=== PATIENT | male | born 1930 | race Caucasian/White ===

== ENCOUNTER 2017-11-28 10:49 | Observation (INO) ==
[2017-11-28] MEDS ORDERED: 0.9 % Sodium Chloride 1,000 ML IVC ONE (11:03)
[2017-11-28] MEDS ORDERED: Ondansetron 4 MG/2 ML VIAL IVP STA (11:05)
[2017-11-28 11:48] LABS: Basophils % 0.6 %; Eosinophils % 0.3 %; Hematocrit 34.5 % (37.5-50.1); Hemoglobin 11.2 g/dL (12.9-16.9); Immature Granulocytes % 0.3 % (0-4); Lymphocytes # 0.7 K/mcL (0.6-4.6); Lymphocytes % 20.3 %; Mean Corpuscular HGB Conc 32.5 g/dL (31.6-35.5); Mean Corpuscular Hemoglobin 28.5 pg (28.0-33.3); Mean Corpuscular Volume 87.8 fL (83.0-100.0); Mean Platelet Volume 9.6 fL (9.4-12.4); Monocytes # 0.5 K/mcL (0.0-1.3); Monocytes % 15.2 %; Neutrophils # 2.1 K/mcL (1.6-8.9); Platelet Count 235 K/mcL (140-400); Red Blood Count 3.93 M/mcL (4.19-5.50); Red Cell Distribution Width 12.8 % (11.5-14.5); Segmented Neutrophils % 63.3 %
--- NOTE | 2017-11-28 11:49 | Emergency Department Note ---
Disposition Clinical Impression: Weakness, Acute electrocardiogram changes Fatigue Qualifiers: Fatigue type: unspecified Qualified Code(s): R53.83 - Other fatigue Disposition: Admitted As Inpatient Condition: Good General Adult HPI - General Chief complaint: ED Upper Respiratory Infection Stated complaint: Positive flu, not feeling good Time Seen by Provider: 11/28/17 11:01 Source: patient Limitations: no limitations Nursing Notes Reviewed: Yes Vital Signs Reviewed: Yes - History of Present Illness HPI Narrative: Patient presents today for generalized weakness and fatigue. Patient states he "just does not feel right". Patient was diagnosed with influenza 2 weeks ago. Patient has been placed on azithromycin and Levaquin for presumed possible URI type symptoms. Patient has not had runny nose or sore throat. Patient does have a cough. Nonproductive in nature. Feels congested in his chest. The patient does not have chest pain. No abdominal pain. Feels nauseated so he has not been eating or drinking. Has began to have some increased swelling in the lower extremities. No difficulty with urination. Continues to urinate without problem. Describes night sweats but no specific fever. Pain Scale: 0 - Related Data Home Medications Medication Instructions Recorded Confirmed Amlodipine Besylate 10 mg PO DAILY 11/28/17 11/28/17 Clopidogrel [Plavix] 75 mg PO DAILY 11/28/17 11/28/17 Finasteride [Proscar] 5 mg PO DAILY 11/28/17 11/28/17 Lisinopril [Zestril] 20 mg PO DAILY 11/28/17 11/28/17 Simvastatin [Zocor] 10 mg PO DAILY 11/28/17 11/28/17 levoFLOXacin [Levofloxacin] 500 mg PO DAILY 11/28/17 11/28/17 Allergies Allergy/AdvReac Type Severity Reaction Status Date / Time No Known Allergies Allergy Verified 11/28/17 10:55 Review of Systems: CONSTITUTIONAL: Chills weakness and fatigue No weight loss, fever, HEENT: Eyes: No visual changes. Ears, Nose, Throat: No hearing loss, difficulty talking or unable to swallow. SKIN: No rash or itching. CARDIOVASCULAR: No chest pain, chest pressure or chest discomfort. No palpitations or edema. RESPIRATORY: Cough without productive sputum GASTROINTESTINAL: No anorexia, nausea, vomiting or diarrhea. No abdominal pain or blood. GENITOURINARY: No burning on urination or hematuria. NEUROLOGICAL: No headache, dizziness, syncope, paralysis, ataxia, numbness or tingling in the extremities. No change in bowel or bladder control. MUSCULOSKELETAL: No muscle pain, back pain, joint pain or stiffness. Past Medical History - Past Medical History Medical history: Reports: hypertension Psychiatric history: Reports: no psych history - Social History Smoking Status: Never smoker Smokeless Tobacco Status: No Alcohol use: Reports: none Drug use: Reports: none Physical Exam General: Well appearing, nontoxic, no acute distress Head: Normocephalic Atraumatic Eyes: PERRL, EOMI ENT: Airway patent, no stridor Neck: supple, no meningismus Chest: Lungs clear to auscultation bilateral Cardiac: Regular rate and rhythm, no murmurs, rubs or gallops Abdomen: soft, nontender, nondistended; no guarding, rebound, or tenderness to percussion Musculoskeletal: +1 pitting edema through the lower extremities through the mid lower leg Calves symmetric, nontender, no palpable cord Skin: No rash, normal skin tone Neuro: Alert and Oriented to person, place, and time; No focal deficit, CN 2-12 symmetric and intact - General Limitations: no limitations General appearance: alert, in no apparent distress Course Vital Signs Temperature 97.8 F 11/28/17 10:51 Pulse Rate 83 11/28/17 10:51 Respiratory Rate 20 11/28/17 10:51 Blood Pressure 144/70 11/28/17 10:51 O2 Sat by Pulse Oximetry 96 11/28/17 10:51 Temperature 97.8 F 11/28/17 14:44 Pulse Rate 77 11/28/17 14:44 Respiratory Rate 18 11/28/17 14:44 Blood Pressure 150/73 11/28/17 14:44 O2 Sat by Pulse Oximetry 95 11/28/17 14:44 Oxygen Delivery Oxygen Delivery Room Air Medical Decision Making - Medical Records Medical records reviewed: Yes I reviewed the patient's medical records. - Lab Data Lab results reviewed: Yes I reviewed the patient's lab results. Result diagrams: 11/28/17 11:31 11/28/17 11:31 Lab Results 11/28/17 11/28/17 11/28/17 Range/Units 11:31 11:31 11:31 WBC 3.3 L (4.3-11.1) K/mcL RBC 3.93 L (4.19-5.50) M/mcL Hgb 11.2 L (12.9-16.9) g/dL Hct 34.5 L (37.5-50.1) % MCV 87.8 (83.0-100.0) fL MCH 28.5 (28.0-33.3) pg MCHC 32.5 (31.6-35.5) g/dL RDW 12.8 (11.5-14.5) % Plt Count 235 (140-400) K/mcL MPV 9.6 (9.4-12.4) fL Immature Gran % 0.3 (0-4) % Seg Neutrophils % 63.3 % Lymphocytes % 20.3 % Monocytes % 15.2 % Eosinophils % 0.3 % Basophils % 0.6 % Neutrophils # 2.1 (1.6-8.9) K/mcL Lymphocytes # 0.7 (0.6-4.6) K/mcL Monocytes # 0.5 (0.0-1.3) K/mcL Eosinophils # 0.0 (0.0-0.6) K/mcL Basophils # 0.0 (0.0-0.2) K/mcL Sodium 133 L (136-145) mEq/L Potassium 4.1 (3.5-5.1) mEq/L Chloride 100 (98-107) mEq/L Carbon Dioxide 26 (23-29) mEq/L BUN 17 (8-23) mg/dL Creatinine 1.20 (0.70-1.30) mg/dL Est GFR ( Amer) > 60 (> 60) Est GFR (Non-Af Amer) 57 L (> 60) BUN/Creatinine Ratio 14 (6-26) Glucose 120 H (70-105) mg/dL Calculated Osmolality 279 L (280-300) Calcium 10.2 (8.6-10.3) mg/dL Phosphorus 2.2 L (2.7-4.5) mg/dL Magnesium 2.0 (1.6-2.6) mg/dL Troponin I < 0.03 (< 0.04) ng/mL B-Natriuretic Peptide (Less than 100) pg/mL TSH (0.340-5.600) mcIU/mL Urine Color (Yellow) Urine Clarity (Clear) Urine pH (5.0-8.0) pH Units Ur Specific [place] (1.010-1.025) Urine Protein (Neg-Trace) mg/dL Urine Glucose (UA) (Normal) mg/dL Urine Ketones (Negative) mg/dL Urine Blood (Negative) Urine Nitrite (Negative) Urine Bilirubin (Negative) Urine Urobilinogen (Normal) mg/dL Ur Leukocyte Esterase (Negative) Urine Microscopic RBC (0-3) per hpf Urine Microscopic WBC (0-3) per hpf Ur Squamous Epith Cells (None-Few) per lpf Urine Bacteria (None-Few) per hpf Hyaline Casts (None-Few) per lpf 11/28/17 11/28/17 11/28/17 Range/Units 11:31 11:31 12:34 WBC (4.3-11.1) K/mcL RBC (4.19-5.50) M/mcL Hgb (12.9-16.9) g/dL Hct (37.5-50.1) % MCV (83.0-100.0) fL MCH (28.0-33.3) pg MCHC (31.6-35.5) g/dL RDW (11.5-14.5) % Plt Count (140-400) K/mcL MPV (9.4-12.4) fL Immature Gran % (0-4) % Seg Neutrophils % % Lymphocytes % % Monocytes % % Eosinophils % % Basophils % % Neutrophils # (1.6-8.9) K/mcL Lymphocytes # (0.6-4.6) K/mcL Monocytes # (0.0-1.3) K/mcL Eosinophils # (0.0-0.6) K/mcL Basophils # (0.0-0.2) K/mcL Sodium (136-145) mEq/L Potassium (3.5-5.1) mEq/L Chloride (98-107) mEq/L Carbon Dioxide (23-29) mEq/L BUN (8-23) mg/dL Creatinine (0.70-1.30) mg/dL Est GFR ( Amer) (> 60) Est GFR (Non-Af Amer) (> 60) BUN/Creatinine Ratio (6-26) Glucose (70-105) mg/dL Calculated Osmolality (280-300) Calcium (8.6-10.3) mg/dL Phosphorus (2.7-4.5) mg/dL Magnesium (1.6-2.6) mg/dL Troponin I (< 0.04) ng/mL B-Natriuretic Peptide 71 (Less than 100) pg/mL TSH 2.578 (0.340-5.600) mcIU/mL Urine Color Yellow (Yellow) Urine Clarity Turbid A (Clear) Urine pH 8.0 (5.0-8.0) pH Units Ur Specific [place] 1.016 (1.010-1.025) Urine Protein 100 H (Neg-Trace) mg/dL Urine Glucose (UA) Normal (Normal) mg/dL Urine Ketones Negative (Negative) mg/dL Urine Blood Negative (Negative) Urine Nitrite Negative (Negative) Urine Bilirubin Negative (Negative) Urine Urobilinogen Normal (Normal) mg/dL Ur Leukocyte Esterase Negative (Negative) Urine Microscopic RBC 0-3 (0-3) per hpf Urine Microscopic WBC 0-3 (0-3) per hpf Ur Squamous Epith Cells Moderate H (None-Few) per lpf Urine Bacteria None Seen (None-Few) per hpf Hyaline Casts None Seen (None-Few) per lpf - Radiology Data Radiology results reviewed: Yes I reviewed the patient's radiology results. - EKG Data EKG #1 EKG attestation: Yes I reviewed and interpreted this EKG. EKG results narrative: EKG shows sinus rhythm and rate of [address] depressions in the anterior leads. Change from previous of 08/06/11. Attestation Statement - Attestation Attestation: I examined this patient and my medical decision-making was reviewed with the Resident Physician. I agree with the documented findings, disposition and treatment plan as described.
[2017-11-28 11:56] LABS: BUN/Creatinine Ratio 14 (6-26); Blood Urea Nitrogen 17 mg/dL (8-23); Calcium 10.2 mg/dL (8.6-10.3); Carbon Dioxide 26 mEq/L (23-29); Chloride 100 mEq/L (98-107); Glucose 120 mg/dL (70-105); Osmolality,Calculated 279 (280-300); Phosphorous 2.2 mg/dL (2.7-4.5); Potassium 4.1 mEq/L (3.5-5.1); Sodium 133 mEq/L (136-145); eGFR For African Americans > 60 (> 60); eGFR For Non-African Americans 57 (> 60)
[2017-11-28 12:47] LABS: Bilirubin,Urine Negative (Negative); Blood,Urine Negative (Negative); Clarity,Urine Turbid (Clear); Color,Urine Yellow (Yellow); Glucose,Urine (UA) Normal (Normal); Ketones,Urine Negative (Negative); Leukocyte Esterase,Urine Negative (Negative); Nitrite,Urine Negative (Negative); Protein,Urine 100 mg/dL (Neg-Trace); Specific Gravity,Urine 1.016 (1.010-1.025); Urobilinogen,Urine Normal (Normal)
[2017-11-28 12:49] LABS: Bacteria,Urine None Seen per hpf (None-Few); Hyaline Casts,Urine None Seen per lpf (None-Few); RBC,Urine 0-3 per hpf (0-3); Squamous Epithelial Cell,Urine Moderate per lpf (None-Few); WBC,Urine 0-3 per hpf (0-3)
--- NOTE | 2017-11-28 13:59 | Internal Med History&Physical ---
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 Check TSH. Check orthostatics. We will get PT OT to see the patient. Weakness possibly from unresolved URI. Possibly viral bronchitis. The patient finished Tamiflu and Zithromax recently. I did explain this to the family that it might take time. (2) Acute electrocardiogram changes Current visit: Yes Status: Acute No chest pain. The patient has ST depression in leads V3, V4, V5 and V6. This was not present previously. Will trend cardiac enzymes. The patient has no chest pain. I would check an echocardiogram. Will ask cardiology to see and decide on a stress test. Will put on telemetry (3) HTN (hypertension) Current visit: Yes Status: Acute Resumed home antihypertensives Qualifiers: Hypertension type: essential hypertension Qualified Code(s): I10 - Essential (primary) hypertension (4) History of TIAs Current visit: Yes Status: Acute Continue Plavix and statin. (5) DVT prophylaxis Current visit: Yes Status: Acute Heparin subcutaneous Internal Medicine - H&P: HPI Chief complaint: weaknes Admitted From: Home Plans for Post Hospital Care: Home History of present illness: Mr. Leong is a 86 year old male with history of HTN , BPH, multiple TIAs who present with weakness and "not feeling right" for some time. In the ED work up was mostly unremarkable including a CXR. He had EKG changes with ST depression in anterior leads but no chest pain. Trops not elevated. Never had cardiac work up. Has had multiple urgent care and PCP visits for URI symptoms lately. Finished Tamiflu course and zithromax last week. Continues to feel weak. Hemodynamically stable in ED. Reported nausea to the ED but not to me. He still has a nagging dry cough. No fever/chills/nausea/vomiting/chest pain/ shortness of breath/abdominal pain/urinary symptoms/neurological symptoms. Past Med Surg Social Fam HX - Past Medical History Medical history: hypertension Psychiatric history: no psych history - Social History Smoking Status: Never smoker Smokeless Tobacco Status: No Alcohol use: none Drug use: none Internal Medicine - H&P: Meds Amlodipine Besylate 10 mg PO DAILY 11/28/17 [History] Clopidogrel [Plavix] 75 mg PO DAILY 11/28/17 [History] Finasteride [Proscar] 5 mg PO DAILY 11/28/17 [History] Lisinopril [Zestril] 20 mg PO DAILY 11/28/17 [History] Simvastatin [Zocor] 10 mg PO DAILY 11/28/17 [History] levoFLOXacin [Levofloxacin] 500 mg PO DAILY 11/28/17 [History] 3 Allergy/AdvReac Type Severity Reaction Status Date / Time No Known Allergies Allergy Verified 11/28/17 10:55 All Systems PM: A 10-system review of systems was performed and is negative for pertinent findings except as documented above in the HPI. Review of systems: All systems reviewed are negative except for what mentioned above - Constitutional Vitals: Temp Pulse Resp BP Pulse Ox 97.8 F 76 15 124/94 97 11/28/17 10:51 11/28/17 12:35 11/28/17 11:15 11/28/17 12:35 11/28/17 12:35 Exam: GEN: NAD HEENT: AT, NC, No cyanosis, oral mucosa is moist, No JVD Lymphatics: No lymphadenoapthy Eyes: Extrocular muscles intact, anicteric CVS:RRR. S1, S2, No m/r/g RESP: CTAB ABD: Soft, NT, ND, +BS EXT: No edema, No rashes, 2+ DP NEURO: was able to stand up and walk to his cane with no help but was unsteady. strenght is about 4/5 in both upper and lower extremities. CN II-XII intact, No sensory deficits Psych: Cooperative, Not anxious or depressed Internal Med - H&P Results - Labs CBC & Chem 7: 11/28/17 11:31 11/28/17 11:31 Labs: Short CBC 11/28/17 Range/Units 11:31 WBC 3.3 L (4.3-11.1) K/mcL Hgb 11.2 L (12.9-16.9) g/dL Hct 34.5 L (37.5-50.1) % Plt Count 235 (140-400) K/mcL Neutrophils # 2.1 (1.6-8.9) K/mcL BMP 11/28/17 11:31 Sodium 133 L Potassium 4.1 Chloride 100 Carbon Dioxide 26 BUN 17 Creatinine 1.20 Glucose 120 H Calcium 10.2 Cardiac Enzymes 11/28/17 Range/Units 11:31 Troponin I < 0.03 (< 0.04) ng/mL Urine 11/28/17 Range/Units 12:34 Urine Color Yellow (Yellow) Urine Clarity Turbid A (Clear) Urine pH 8.0 (5.0-8.0) pH Units Ur Specific [place] 1.016 (1.010-1.025) Urine Protein 100 H (Neg-Trace) mg/dL Urine Glucose (UA) Normal (Normal) mg/dL - Impressions ITS Impressions Chest X-Ray 11/28/17 11:04 IMPRESSION: No acute cardiopulmonary process. D/ / Dennis Anguiano MD / Dennis Anguiano MD Interpreting Provider: Dennis Anguiano MD
[2017-11-28] MEDS ORDERED: Acetaminophen 325 MG TABLET PO PRN (14:20)
[2017-11-28] MEDS ORDERED: Naloxone 0.4 MG/ML INJ IVP PRN (14:20)
[2017-11-28] MEDS: Finasteride 5 MG TABLET PO SCH (19:31)
[2017-11-28] MEDS: Lisinopril 20 MG TABLET PO SCH (19:31)
[2017-11-28] MEDS: amLODIPine 5 MG TABLET PO SCH (19:31)
[2017-11-28] MEDS: *HR* Heparin 5,000 UNIT/ML VIAL SQ SCH (22:00)
[2017-11-29] MEDS: *HR* Heparin 5,000 UNIT/ML VIAL SQ SCH (05:45)
--- NOTE | 2017-11-29 07:51 | Electrocardiograph Report ---
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
[2017-11-29 11:37] VITALS: BP 153/73
[2017-11-29] MEDS ORDERED: Benzonatate 100 MG CAPSULE PO SCH (12:00)
[2017-11-29] MEDS: amLODIPine 5 MG TABLET PO SCH (12:08)
[2017-11-29] MEDS: Lisinopril 20 MG TABLET PO SCH (12:09)
[2017-11-29] MEDS: Finasteride 5 MG TABLET PO SCH (12:09)
--- NOTE | 2017-11-29 13:18 | Discharge Summary ---
- NOTES TO OUTPATIENT PROVIDER Notes to Outpatient Provider: patient is not eating or drinking well according to , also coughing. He will be discharged with tessalon and should follow up with PCP next week. Encouraged drinking water and nutritional sullement. Also provided with a wheeled walker. Date of Encounter: 11/29/17 Time of Encounter: 13:16 - Discharge Diagnosis (1) Cough Priority: Secondary Status: Chronic Comments: We will provide a short course of Tessalon Perle to help control the cough. Explained to the patient and his that flu syndrome mild thickening involves a cough that lingers. He will complete his course of antibiotics. P was started on earlier in the week (2) Fatigue Priority: Primary Status: Acute Comments: Likely secondary to the recent flu in this elderly gentleman. Qualifiers: Fatigue type: unspecified Qualified Code(s): R53.83 - Other fatigue (3) HTN (hypertension) Priority: Primary Status: Chronic Comments: Vital signs stable continue home medications Qualifiers: Hypertension type: essential hypertension Qualified Code(s): I10 - Essential (primary) hypertension (4) Weakness Priority: Primary Status: Acute Comments: PT saw the patient and recommends a wheeled walker which has been prescribed and social service will see this a liver to the home. declined home health services or home physical therapy. Hospital course: Mr. Leong is a 86 year old male is a 86-year-old male with a history of hypertension, BPH, multiple TIAs and recent flu. He presented with weakness and not feeling right. His workup in the ER was mostly unremarkable including a chest x-ray. He had an EKG with some slight T-wave depression in anterior leads but no chest pain. Serial troponins were negative. He has had multiple urgent care and primary care visits for upper ureter respiratory infection symptoms recently since the flu. He did finish a course of Tamiflu and is continuing a course of azithromycin. Explained that he could have post viral syndrome and not feel well for several weeks. The cough is malingering and I did offer him to let us Tessalon Perle which helped and he will go home with a prescription of that. His vital signs and lab work are stable he has not been eating or drinking much per his spouse. I instructed him to set a water bottle by his TV table and sit better throughout the day as he does not like water. Also stated he had not feel like eating to drink a booster and an shore. He agreed that he would try that. He will also follow-up with his primary care physician next week physical therapy saw him and recommends a will jair which will be supplied. Discharge discussed with: patient, family, nurse, social work, case management - Time Spent with Patient Total time spent providing and/or coordinating discharge services: Less than 30 minutes - Discharge Medications Prescriptions: Benzonatate [Tessalon] 200 mg PO TID PRN 7 Days #21 capsule PRN Reason: Cough Home Medications: Amlodipine Besylate 10 mg PO DAILY 11/28/17 [History] Clopidogrel [Plavix] 75 mg PO DAILY 11/28/17 [History] Finasteride [Proscar] 5 mg PO DAILY 11/28/17 [History] Lisinopril [Zestril] 20 mg PO DAILY 11/28/17 [History] Simvastatin [Zocor] 10 mg PO DAILY 11/28/17 [History] levoFLOXacin [Levofloxacin] 500 mg PO DAILY 11/28/17 [History] Benzonatate [Tessalon] 200 mg PO TID PRN 7 Days #21 capsule 11/29/17 [Rx] Allergies/Adverse Reactions: 3 Allergy/AdvReac Type Severity Reaction Status Date / Time No Known Allergies Allergy Verified 11/28/17 10:55 Date of admission: 11/28/17 14:15 Primary care physician: Lincoln Meneses MD Consults: 11/28/17 14:18 Consult to Occupational Therapy [CONS] Routine Comment: Evaluate, develop and implement POC Reason for Consult: therapy/placement needs Consult to Physical Therapy [CONS] Routine Comment: Evaluate, develop and implement POC Reason for Consult: PT eval Discharging clinician: Edna Lenz Anticipated date of discharge: 11/29/17 - Constitutional Vitals: Temp Pulse Resp BP Pulse Ox 98.3 F 79 16 153/73 95 11/29/17 11:36 11/29/17 11:36 11/29/17 11:36 11/29/17 11:36 11/29/17 11:36 General appearance: Present: cooperative, A&O X 3, pleasant, no acute distress, answers questions appropriately - Head Head exam: Present: atraumatic, normocephalic - Eye Eye exam: Present: PERRL, conjuntiva pink, sclera anicteric Pupils: Present: PERRL - Neck Neck exam general surgery: Present: supple, trachea midline. Absent: lymphadenopathy - Respiratory Respiratory exam: Present: CTAB. Absent: accessory muscle use, rales, rhonchi, wheezes - Cardiovascular Cardiovascular exam: Present: RRR, +S1, +S2. Absent: diastolic murmur, gallop, rubs, systolic murmur - GI/Abdominal GI/Abdominal exam: Present: normal bowel sounds, soft, no peritoneal signs. Absent: distended, tenderness - Extremities Exam Extremities exam: Present: warm, radial pulses palpable and symmetrical. Absent : calf tenderness, cyanotic, pedal edema - Neurological Exam Neurological exam: Present: alert, CN II-XII intact, oriented X3, no focal deficits. Absent: pronater drift, facial droop, speech deficit Additional comments: Staffing gait, PT recommends will jair which has been arranged - Skin Skin exam: Present: dry, intact, normal color, warm - Patient Status Disposition: Home, Self-Care Condition: Good Functional capacity at discharge: uses cane/walker Overall status at discharge: patient is progressing back to baseline - Discharge Instructions Follow Up With: Lincoln Meneses MD [Primary Care Provider] - - Diet and Activity Activity: ambulate only with your walker, increase activity as tolerated Diet: advance to your usual diet (Instructed patient to try to increase his water intake to 3 small water bottles a day and did shore up to 3 or 4 times a day if he is not eating )
== END 2017-11-29 14:57 | disposition home or self-care (01) ==
LOC: 3BNU 10:49 → EMEROO 10:49 → 3BNU 14:24
PROVIDERS: ADMIT Internal Medicine; ATTEND Registered Nurse

== ENCOUNTER 2018-05-06 18:52 | Observation (INO) ==
--- NOTE | 2018-05-06 19:25 | Emergency Department Note ---
Disposition Clinical Impression: Hyponatremia, Vision changes, Weakness Afib Qualifiers: Atrial fibrillation type: unspecified Qualified Code(s): I48.91 - Unspecified atrial fibrillation Disposition: Admitted As Inpatient Condition: Good Time of Disposition: 22:44 General Adult HPI - General Chief complaint: ED Dizziness Stated complaint: "dizzy,weak"-hx of stroke Time Seen by Provider: 05/06/18 19:03 Nursing Notes Reviewed: Yes Vital Signs Reviewed: Yes - History of Present Illness HPI Narrative: Patient states that he "felt rotten when he woke up today." States yesterday woke up and felt dizzy. States that this is gone. Does use a walker to get around. No change in his feet. Family states just a slow decline over the past several years. Patient has no specific complaints currently other than generalized weakness. Pain Scale: 0 - Related Data Home Medications Medication Instructions Recorded Confirmed Amlodipine Besylate 10 mg PO DAILY 11/28/17 05/06/18 Clopidogrel [Plavix] 75 mg PO DAILY 11/28/17 05/06/18 Finasteride [Proscar] 5 mg PO DAILY 11/28/17 05/06/18 Lisinopril [Zestril] 20 mg PO DAILY 11/28/17 05/06/18 Simvastatin [Zocor] 10 mg PO DAILY 11/28/17 05/06/18 Aspirin [Lo-Dose Aspirin EC] 81 mg PO DAILY 02/18/18 05/06/18 Cholecalciferol (Vitamin D3) 2,000 unit PO DAILY 02/18/18 05/06/18 [Vitamin D] Ferrous Sulfate [Iron] 325 mg PO DAILY 02/18/18 05/06/18 Flaxseed Oil [[place]-3 Flaxseed Oil] 1,000 mg PO DAILY 02/18/18 05/06/18 Gabapentin [Neurontin] 400 mg PO BID 02/18/18 05/06/18 Multivitamin [Multivitamins] 1 each PO DAILY 02/18/18 05/06/18 Tamsulosin [Flomax] 0.4 mg PO DAILY 02/18/18 05/06/18 Allergies Allergy/AdvReac Type Severity Reaction Status Date / Time No Known Allergies Allergy Verified 05/06/18 21:26 All systems ED: reviewed and negative except as stated. Constitutional: Denies: fever, chills ENT ED: Denies: congestion Cardiovascular: Denies: chest pain, dyspnea on exertion, syncope Respiratory: Denies: cough, dyspnea Gastrointestinal: Denies: abdominal pain, nausea, vomiting, diarrhea, hematemesis Genitourinary: Denies: urgency, dysuria, frequency Musculoskeletal: Denies: back pain, neck pain Integumentary: Denies: rash, abrasion Neurological: Reports: weakness, other (Blurry vision. States when it is up close. No loss in vision.). Denies: headache Past Medical History - Past Medical History Attestation: Yes The following information was validated with the patient. Source: patient Medical history: Reports: cancer, CVA Psychiatric history: Reports: no psych history - Social History Smoking Status: Never smoker Smokeless Tobacco Status: No Alcohol use: Reports: none Drug use: Reports: none Physical Exam - General Limitations: no limitations General appearance: alert, in no apparent distress, other (Patient states that he is having a hard time figuring out which were does say. Family states that this is normal for the patient. This is not any acute onset in the past couple days.) - Head Head exam: atraumatic, normocephalic, normal inspection - Eye Eye exam: Present: normal appearance, PERRL, EOMI - ENT ENT exam: normal exam, normal oropharynx, mucous membranes moist - Neck Neck exam: Present: normal inspection, full ROM, trachea midline - Chest Chest inspection: Present: normal inspection, symmetric chest wall rise - Respiratory Respiratory exam: Present: normal lung sounds bilaterally. Absent: respiratory distress, accessory muscle use - Cardiovascular Cardiovascular exam: Present: irregular rhythm, normal heart sounds - Abdominal Exam Abdominal exam: Present: soft, Non-Tender. Absent: tenderness, distention, guarding, rebound, rigidity - Extremities Exam Extremities exam: Present: full ROM, normal capillary refill, other (Pitting edema to his knees bilaterally.). Absent: tenderness - Back Exam Back exam: Present: normal inspection, full ROM. Absent: tenderness - Neurological Exam Neurological exam: Present: alert, oriented X3, CN II-XII intact (No drift of any extremities. Equal strength in all 4 extremities. Patient does have a hard time getting out which word he wants to say however he is alert and oriented and can figure out the word it just takes them a couple extra minutes.) . Absent: motor sensory deficit - Psychiatric Psychiatric exam: Present: normal affect, normal mood - Skin Skin exam: Present: warm, dry, intact, normal color. Absent: rash, cyanosis, diaphoresis Course Course Narrative: Male Pt presenting to the ED complaining of "feeling rotten." Patient states that yesterday he woke up and had a dizziness feeling. He describes this dizziness as a lightheaded. Patient has had a stroke over 15 years ago. He does have some speech deficits from this. The family states that he has been declining significantly over the past couple years. That his speech has been getting worse. He is also been getting weaker. Family states that there is been no sudden change today or yesterday except for the patient stating that he did not feel very well. Patient denies any shortness of breath or chest pain. Denies any nausea vomiting diarrhea. Denies any fevers. Denies any trouble urinating or defecating. He frequently laughs whenever I talked to him. He does not appear to be in acute distress. He is in A. fib with no history of this. States his only medical history is of high blood pressure and a stroke several years ago. Patient's lung sounds are clear heart tones are normal but irregular. Abdomen is soft and nontender. He does have pitting edema to his knees bilaterally. No history of congestive heart failure. Patient's head CT showed some chronic disease however no acute issues. Patient was hyponatremic. We will admit patient to the hospital for his new swelling to his extremities , generalized weakness, new onset A. fib. As well as his hyponatremia. Patient is agreeable to admission at this time. We will make patient to hospital. We have provided him with aspirin. Vital Signs Temperature 97.7 F 05/06/18 18:54 Pulse Rate 108 05/06/18 18:54 Respiratory Rate 14 05/06/18 18:54 Blood Pressure 123/68 05/06/18 18:54 O2 Sat by Pulse Oximetry 97 05/06/18 18:54 Temperature 98.0 F 05/06/18 22:47 Pulse Rate 89 05/06/18 22:47 Respiratory Rate 16 05/06/18 22:47 Blood Pressure 174/71 05/06/18 22:47 O2 Sat by Pulse Oximetry 99 05/06/18 22:47 Oxygen Delivery Oxygen Delivery Room Air Medical Decision Making - Medical Records Medical records reviewed: Yes I reviewed the patient's medical records. - Lab Data Lab results reviewed: Yes I reviewed the patient's lab results. Result diagrams: 05/06/18 19:20 05/06/18 19:20 Lab Results 05/06/18 05/06/18 05/06/18 Range/Units 19:20 19:20 19:23 WBC 2.8 L (4.3-11.1) K/mcL RBC 3.98 L (4.19-5.50) M/mcL Hgb 11.9 L (12.9-16.9) g/dL Hct 35.9 L (37.5-50.1) % MCV 90.2 (83.0-100.0) fL MCH 29.9 (28.0-33.3) pg MCHC 33.1 (31.6-35.5) g/dL RDW 12.4 (11.5-14.5) % Plt Count 198 (140-400) K/mcL MPV 9.2 L (9.4-12.4) fL Immature Gran % 0.0 (0-4) % Seg Neutrophils % 51.3 % Lymphocytes % 28.5 % Monocytes % 15.5 % Eosinophils % 4.0 % Basophils % 0.7 % Neutrophils # 1.4 L (1.6-8.9) K/mcL Lymphocytes # 0.8 (0.6-4.6) K/mcL Monocytes # 0.4 (0.0-1.3) K/mcL Eosinophils # 0.1 (0.0-0.6) K/mcL Basophils # 0.0 (0.0-0.2) K/mcL Sodium 129 L (136-145) mEq/L Potassium 4.0 (3.5-5.1) mEq/L Chloride 103 (98-107) mEq/L Carbon Dioxide 27 (23-29) mEq/L BUN 19 (8-23) mg/dL Creatinine 1.21 (0.70-1.30) mg/dL Est GFR ( Amer) > 60 (> 60) Est GFR (Non-Af Amer) 57 L (> 60) BUN/Creatinine Ratio 16 (6-26) Glucose 157 H (70-105) mg/dL Calculated Osmolality 274 L (280-300) Calcium 10.2 (8.6-10.3) mg/dL Total Bilirubin 0.4 (0.3-1.0) mg/dL AST 15 (13-39) Units/L ALT 8 (7-52) Units/L Alkaline Phosphatase 75 (34-104) Units/L Troponin I < 0.03 (< 0.04) ng/mL B-Natriuretic Peptide 66 (Less than 100) pg/mL Serum Total Protein 7.1 (6.4-8.9) g/dL Albumin 4.2 (3.5-5.7) g/dL Globulin 2.9 (2.4-3.5) g/dL Albumin/Globulin Ratio 1.4 (1.1-2.2) Urine Color (Yellow) Urine Clarity (Clear) Urine pH (5.0-8.0) pH Units Ur Specific [place] (1.010-1.025) Urine Protein (Neg-Trace) mg/dL Urine Glucose (UA) (Normal) mg/dL Urine Ketones (Negative) mg/dL Urine Blood (Negative) Urine Nitrite (Negative) Urine Bilirubin (Negative) Urine Urobilinogen (Normal) mg/dL Ur Leukocyte Esterase (Negative) Urine Microscopic RBC (0-3) per hpf Urine Microscopic WBC (0-3) per hpf Ur Squamous Epith Cells (None-Few) per lpf Urine Bacteria (None-Few) per hpf Hyaline Casts (None-Few) per lpf Ur Culture Indicated? (NO) 05/06/18 Range/Units 19:47 WBC (4.3-11.1) K/mcL RBC (4.19-5.50) M/mcL Hgb (12.9-16.9) g/dL Hct (37.5-50.1) % MCV (83.0-100.0) fL MCH (28.0-33.3) pg MCHC (31.6-35.5) g/dL RDW (11.5-14.5) % Plt Count (140-400) K/mcL MPV (9.4-12.4) fL Immature Gran % (0-4) % Seg Neutrophils % % Lymphocytes % % Monocytes % % Eosinophils % % Basophils % % Neutrophils # (1.6-8.9) K/mcL Lymphocytes # (0.6-4.6) K/mcL Monocytes # (0.0-1.3) K/mcL Eosinophils # (0.0-0.6) K/mcL Basophils # (0.0-0.2) K/mcL Sodium (136-145) mEq/L Potassium (3.5-5.1) mEq/L Chloride (98-107) mEq/L Carbon Dioxide (23-29) mEq/L BUN (8-23) mg/dL Creatinine (0.70-1.30) mg/dL Est GFR ( Amer) (> 60) Est GFR (Non-Af Amer) (> 60) BUN/Creatinine Ratio (6-26) Glucose (70-105) mg/dL Calculated Osmolality (280-300) Calcium (8.6-10.3) mg/dL Total Bilirubin (0.3-1.0) mg/dL AST (13-39) Units/L ALT (7-52) Units/L Alkaline Phosphatase (34-104) Units/L Troponin I (< 0.04) ng/mL B-Natriuretic Peptide (Less than 100) pg/mL Serum Total Protein (6.4-8.9) g/dL Albumin (3.5-5.7) g/dL Globulin (2.4-3.5) g/dL Albumin/Globulin Ratio (1.1-2.2) Urine Color Yellow (Yellow) Urine Clarity Clear (Clear) Urine pH 7.5 (5.0-8.0) pH Units Ur Specific [place] 1.015 (1.010-1.025) Urine Protein 100 H (Neg-Trace) mg/dL Urine Glucose (UA) Normal (Normal) mg/dL Urine Ketones Negative (Negative) mg/dL Urine Blood Negative (Negative) Urine Nitrite Negative (Negative) Urine Bilirubin Negative (Negative) Urine Urobilinogen Normal (Normal) mg/dL Ur Leukocyte Esterase Negative (Negative) Urine Microscopic RBC 0-3 (0-3) per hpf Urine Microscopic WBC 0-3 (0-3) per hpf Ur Squamous Epith Cells Moderate H (None-Few) per lpf Urine Bacteria None Seen (None-Few) per hpf Hyaline Casts None Seen (None-Few) per lpf Ur Culture Indicated? NO (NO) - Radiology Data Radiology results reviewed: Yes I reviewed the patient's radiology results. Chest X-Ray 05/06/18 19:20 IMPRESSION: No acute cardiac or pulmonary disease. D/ / Tate Harrison MD / Tate Harrison MD Interpreting Provider: Tate Harrison MD Head CT 05/06/18 19:20 IMPRESSION: No acute intracranial abnormality. Severe microvascular ischemic disease. D/ / 05/06/2018 20:06:11 Peter Lombardo MD / bcarter Interpreting Provider: Peter Lombardo MD - EKG Data EKG #1 EKG attestation: Yes I reviewed and interpreted this EKG. EKG results narrative: Patient is in A. fib at a rate of 81. CA interval was not measured. No signs of acute ischemia. Previous EKG showed patient in a normal sinus rhythm.
[2018-05-06 20:21] LABS: Basophils % 0.7 %; Eosinophils # 0.1 K/mcL (0.0-0.6); Hematocrit 35.9 % (37.5-50.1); Hemoglobin 11.9 g/dL (12.9-16.9); Lymphocytes # 0.8 K/mcL (0.6-4.6); Lymphocytes % 28.5 %; Mean Corpuscular HGB Conc 33.1 g/dL (31.6-35.5); Mean Corpuscular Hemoglobin 29.9 pg (28.0-33.3); Mean Corpuscular Volume 90.2 fL (83.0-100.0); Mean Platelet Volume 9.2 fL (9.4-12.4); Monocytes # 0.4 K/mcL (0.0-1.3); Monocytes % 15.5 %; Neutrophils # 1.4 K/mcL (1.6-8.9); Platelet Count 198 K/mcL (140-400); Red Blood Count 3.98 M/mcL (4.19-5.50); Red Cell Distribution Width 12.4 % (11.5-14.5); Segmented Neutrophils % 51.3 %
[2018-05-06 20:22] LABS: Bilirubin,Urine Negative (Negative); Blood,Urine Negative (Negative); Clarity,Urine Clear (Clear); Color,Urine Yellow (Yellow); Glucose,Urine (UA) Normal (Normal); Ketones,Urine Negative (Negative); Leukocyte Esterase,Urine Negative (Negative); Nitrite,Urine Negative (Negative); PH,Urine 7.5 pH Units (5.0-8.0); Protein,Urine 100 mg/dL (Neg-Trace); Specific Gravity,Urine 1.015 (1.010-1.025); Urobilinogen,Urine Normal (Normal)
[2018-05-06 20:23] LABS: Bacteria,Urine None Seen per hpf (None-Few); Hyaline Casts,Urine None Seen per lpf (None-Few); RBC,Urine 0-3 per hpf (0-3); Squamous Epithelial Cell,Urine Moderate per lpf (None-Few); WBC,Urine 0-3 per hpf (0-3)
[2018-05-06 20:32] LABS: Troponin I < 0.03 ng/mL (< 0.04)
[2018-05-06 20:54] LABS: Alanine Aminotransferase 8 Units/L (7-52); Albumin 4.2 g/dL (3.5-5.7); Albumin/Globulin Ratio 1.4 (1.1-2.2); Alkaline Phosphatase 75 Units/L (34-104); Aspartate Amino Transferase 15 Units/L (13-39); BUN/Creatinine Ratio 16 (6-26); Bilirubin,Total 0.4 mg/dL (0.3-1.0); Blood Urea Nitrogen 19 mg/dL (8-23); Calcium 10.2 mg/dL (8.6-10.3); Carbon Dioxide 27 mEq/L (23-29); Chloride 103 mEq/L (98-107); Globulin 2.9 g/dL (2.4-3.5); Glucose 157 mg/dL (70-105); Osmolality,Calculated 274 (280-300); Sodium 129 mEq/L (136-145); Total Protein 7.1 g/dL (6.4-8.9); eGFR For Non-African Americans 57 (> 60)
[2018-05-06] MEDS ORDERED: Aspirin 81 MG TAB.CHEW PO STA (21:04)
--- NOTE | 2018-05-06 22:48 | Emergency Department Note ---
Disposition Clinical Impression: Hyponatremia, Vision changes, Weakness Afib Qualifiers: Atrial fibrillation type: unspecified Qualified Code(s): I48.91 - Unspecified atrial fibrillation Disposition: Admitted As Inpatient Condition: Good Time of Disposition: 22:58 General Adult HPI - General Chief complaint: ED Dizziness Stated complaint: "dizzy,weak"-hx of stroke Time Seen by Provider: 05/06/18 19:03 Source: patient, family Limitations: no limitations Nursing Notes Reviewed: Yes Vital Signs Reviewed: Yes - History of Present Illness Pain Scale: 0 - Related Data Home Medications Medication Instructions Recorded Confirmed Amlodipine Besylate 10 mg PO DAILY 11/28/17 05/06/18 Clopidogrel [Plavix] 75 mg PO DAILY 11/28/17 05/06/18 Finasteride [Proscar] 5 mg PO DAILY 11/28/17 05/06/18 Lisinopril [Zestril] 20 mg PO DAILY 11/28/17 05/06/18 Simvastatin [Zocor] 10 mg PO DAILY 11/28/17 05/06/18 Aspirin [Lo-Dose Aspirin EC] 81 mg PO DAILY 02/18/18 05/06/18 Cholecalciferol (Vitamin D3) 2,000 unit PO DAILY 02/18/18 05/06/18 [Vitamin D] Ferrous Sulfate [Iron] 325 mg PO DAILY 02/18/18 05/06/18 Flaxseed Oil [[place]-3 Flaxseed Oil] 1,000 mg PO DAILY 02/18/18 05/06/18 Gabapentin [Neurontin] 400 mg PO BID 02/18/18 05/06/18 Multivitamin [Multivitamins] 1 each PO DAILY 02/18/18 05/06/18 Tamsulosin [Flomax] 0.4 mg PO DAILY 02/18/18 05/06/18 Allergies Allergy/AdvReac Type Severity Reaction Status Date / Time No Known Allergies Allergy Verified 05/06/18 21:26 Constitutional: Denies: fever, chills ENT ED: Denies: congestion Cardiovascular: Denies: chest pain, dyspnea on exertion, syncope Respiratory: Denies: cough, dyspnea Gastrointestinal: Denies: abdominal pain, nausea, vomiting, diarrhea, hematemesis Genitourinary: Denies: urgency, dysuria, frequency Musculoskeletal: Denies: back pain, neck pain Integumentary: Denies: rash, abrasion Neurological: Reports: weakness, other (Blurry vision. States when it is up close. No loss in vision.). Denies: headache Past Medical History - Past Medical History Medical history: Reports: cancer, CVA Psychiatric history: Reports: no psych history - Social History Smoking Status: Never smoker Smokeless Tobacco Status: No Alcohol use: Reports: none Drug use: Reports: none Physical Exam - General Limitations: no limitations General appearance: alert, in no apparent distress, other (Patient states that he is having a hard time figuring out which were does say. Family states that this is normal for the patient. This is not any acute onset in the past couple days.) Course Vital Signs Temperature 97.7 F 05/06/18 18:54 Pulse Rate 108 05/06/18 18:54 Respiratory Rate 14 05/06/18 18:54 Blood Pressure 123/68 05/06/18 18:54 O2 Sat by Pulse Oximetry 97 05/06/18 18:54 Temperature 98.0 F 05/06/18 22:47 Pulse Rate 89 05/06/18 22:47 Respiratory Rate 16 05/06/18 22:47 Blood Pressure 174/71 05/06/18 22:47 O2 Sat by Pulse Oximetry 99 05/06/18 22:47 Oxygen Delivery Oxygen Delivery Room Air Medical Decision Making - Lab Data Lab results reviewed: Yes I reviewed the patient's lab results. Result diagrams: 05/06/18 19:20 05/06/18 19:20 Lab Results 05/06/18 05/06/18 05/06/18 Range/Units 19:20 19:20 19:23 WBC 2.8 L (4.3-11.1) K/mcL RBC 3.98 L (4.19-5.50) M/mcL Hgb 11.9 L (12.9-16.9) g/dL Hct 35.9 L (37.5-50.1) % MCV 90.2 (83.0-100.0) fL MCH 29.9 (28.0-33.3) pg MCHC 33.1 (31.6-35.5) g/dL RDW 12.4 (11.5-14.5) % Plt Count 198 (140-400) K/mcL MPV 9.2 L (9.4-12.4) fL Immature Gran % 0.0 (0-4) % Seg Neutrophils % 51.3 % Lymphocytes % 28.5 % Monocytes % 15.5 % Eosinophils % 4.0 % Basophils % 0.7 % Neutrophils # 1.4 L (1.6-8.9) K/mcL Lymphocytes # 0.8 (0.6-4.6) K/mcL Monocytes # 0.4 (0.0-1.3) K/mcL Eosinophils # 0.1 (0.0-0.6) K/mcL Basophils # 0.0 (0.0-0.2) K/mcL Sodium 129 L (136-145) mEq/L Potassium 4.0 (3.5-5.1) mEq/L Chloride 103 (98-107) mEq/L Carbon Dioxide 27 (23-29) mEq/L BUN 19 (8-23) mg/dL Creatinine 1.21 (0.70-1.30) mg/dL Est GFR ( Amer) > 60 (> 60) Est GFR (Non-Af Amer) 57 L (> 60) BUN/Creatinine Ratio 16 (6-26) Glucose 157 H (70-105) mg/dL Calculated Osmolality 274 L (280-300) Calcium 10.2 (8.6-10.3) mg/dL Total Bilirubin 0.4 (0.3-1.0) mg/dL AST 15 (13-39) Units/L ALT 8 (7-52) Units/L Alkaline Phosphatase 75 (34-104) Units/L Troponin I < 0.03 (< 0.04) ng/mL B-Natriuretic Peptide 66 (Less than 100) pg/mL Serum Total Protein 7.1 (6.4-8.9) g/dL Albumin 4.2 (3.5-5.7) g/dL Globulin 2.9 (2.4-3.5) g/dL Albumin/Globulin Ratio 1.4 (1.1-2.2) Urine Color (Yellow) Urine Clarity (Clear) Urine pH (5.0-8.0) pH Units Ur Specific [place] (1.010-1.025) Urine Protein (Neg-Trace) mg/dL Urine Glucose (UA) (Normal) mg/dL Urine Ketones (Negative) mg/dL Urine Blood (Negative) Urine Nitrite (Negative) Urine Bilirubin (Negative) Urine Urobilinogen (Normal) mg/dL Ur Leukocyte Esterase (Negative) Urine Microscopic RBC (0-3) per hpf Urine Microscopic WBC (0-3) per hpf Ur Squamous Epith Cells (None-Few) per lpf Urine Bacteria (None-Few) per hpf Hyaline Casts (None-Few) per lpf Ur Culture Indicated? (NO) 05/06/18 Range/Units 19:47 WBC (4.3-11.1) K/mcL RBC (4.19-5.50) M/mcL Hgb (12.9-16.9) g/dL Hct (37.5-50.1) % MCV (83.0-100.0) fL MCH (28.0-33.3) pg MCHC (31.6-35.5) g/dL RDW (11.5-14.5) % Plt Count (140-400) K/mcL MPV (9.4-12.4) fL Immature Gran % (0-4) % Seg Neutrophils % % Lymphocytes % % Monocytes % % Eosinophils % % Basophils % % Neutrophils # (1.6-8.9) K/mcL Lymphocytes # (0.6-4.6) K/mcL Monocytes # (0.0-1.3) K/mcL Eosinophils # (0.0-0.6) K/mcL Basophils # (0.0-0.2) K/mcL Sodium (136-145) mEq/L Potassium (3.5-5.1) mEq/L Chloride (98-107) mEq/L Carbon Dioxide (23-29) mEq/L BUN (8-23) mg/dL Creatinine (0.70-1.30) mg/dL Est GFR ( Amer) (> 60) Est GFR (Non-Af Amer) (> 60) BUN/Creatinine Ratio (6-26) Glucose (70-105) mg/dL Calculated Osmolality (280-300) Calcium (8.6-10.3) mg/dL Total Bilirubin (0.3-1.0) mg/dL AST (13-39) Units/L ALT (7-52) Units/L Alkaline Phosphatase (34-104) Units/L Troponin I (< 0.04) ng/mL B-Natriuretic Peptide (Less than 100) pg/mL Serum Total Protein (6.4-8.9) g/dL Albumin (3.5-5.7) g/dL Globulin (2.4-3.5) g/dL Albumin/Globulin Ratio (1.1-2.2) Urine Color Yellow (Yellow) Urine Clarity Clear (Clear) Urine pH 7.5 (5.0-8.0) pH Units Ur Specific [place] 1.015 (1.010-1.025) Urine Protein 100 H (Neg-Trace) mg/dL Urine Glucose (UA) Normal (Normal) mg/dL Urine Ketones Negative (Negative) mg/dL Urine Blood Negative (Negative) Urine Nitrite Negative (Negative) Urine Bilirubin Negative (Negative) Urine Urobilinogen Normal (Normal) mg/dL Ur Leukocyte Esterase Negative (Negative) Urine Microscopic RBC 0-3 (0-3) per hpf Urine Microscopic WBC 0-3 (0-3) per hpf Ur Squamous Epith Cells Moderate H (None-Few) per lpf Urine Bacteria None Seen (None-Few) per hpf Hyaline Casts None Seen (None-Few) per lpf Ur Culture Indicated? NO (NO) - Radiology Data Radiology results reviewed: Yes I reviewed the patient's radiology results. Chest X-Ray 05/06/18 19:20 IMPRESSION: No acute cardiac or pulmonary disease. D/ / Tate Harrison MD / Tate Harrison MD Interpreting Provider: Tate Harrison MD Head CT 05/06/18 19:20 IMPRESSION: No acute intracranial abnormality. Severe microvascular ischemic disease. D/ / 05/06/2018 20:06:11 Peter Lombardo MD / [email or web address] Interpreting Provider: Peter Lombardo MD - EKG Data EKG #1 EKG attestation: Yes I reviewed and interpreted this EKG. EKG results narrative: EKG shows atrial fibrillation with a controlled rate. No acute ST segment elevation or depression. Critical Care Time Critical Care Time: No Attestation Statement - Attestation Attestation: I, Boston Delaney MD, personally evaluated this patient and discussed their management with the resident physician. I reviewed the resident's note and agree with the documented findings, medical decision making, and plan of care. 87-year-old male presents to the emergency department with a 2 day history of feeling weak and dizzy and lightheaded. He states he is just felt bad all over all day today. He denies any pain. No chest pain or shortness of breath. No palpitations. No syncope. No prior history of atrial fibrillation. On examination patient is a well-developed well-nourished well-appearing elderly male in no acute distress. He is alert and oriented. No cyanosis or diaphoresis. Breath sounds are clear and equal bilaterally. Heart irregularly irregular. Abdomen soft and nontender with normal bowel sounds. Labs, imaging, and EKG reviewed. The hospitalist, Dr. Tafoya, was consulted and accepted admission of the patient.
--- NOTE | 2018-05-06 23:16 | Internal Med History&Physical ---
Date of Encounter: 05/06/18 Time of Encounter: 23:08 Internal Medicine - H&P: HPI Chief complaint: generalized malaise Admitted From: Home Plans for Post Hospital Care: Home History of present illness: Mr. 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 He presents today to the ED complaining of "feeling rotten " since waking up. He reports waking up with generalized malaise and dizziness/ lightheaded. Patient states that yesterday he woke up and had a dizziness feeling. He describes this dizziness as a lightheaded. As per his family, he has been declining significantly over the past couple years with worsening of his speech deficits from his stroke and getting weaker. They report that there has been no acute change in his clinical status today or yesterday except for the patient stating that he did not feel very well. The patient denies any shortness of breath or chest pain when asked explicitly. He denies any nausea, vomiting, diarrhea, fever, chills. No issues with micturition. He was seen to be in atrial fibrillation in the ER for which he was given 324mg of ASA as well as hyponatremia. As per the patient, family and review of old records there was no priot history of atrial fibrillation. He is admitted for further evaluation and management. Past Med Surg Social Fam HX - Past Medical History Medical history: cancer, CVA Psychiatric history: no psych history - Social History Smoking Status: Never smoker Smokeless Tobacco Status: No Alcohol use: none Drug use: none - Family History Mother Living Status: Hx Family Cancer: Yes Internal Medicine - H&P: Meds Amlodipine Besylate 10 mg PO DAILY 11/28/17 [History] Clopidogrel [Plavix] 75 mg PO DAILY 11/28/17 [History] Finasteride [Proscar] 5 mg PO DAILY 11/28/17 [History] Lisinopril [Zestril] 20 mg PO DAILY 11/28/17 [History] Simvastatin [Zocor] 10 mg PO DAILY 11/28/17 [History] Aspirin [Lo-Dose Aspirin EC] 81 mg PO DAILY 02/18/18 [History] Cholecalciferol (Vitamin D3) [Vitamin D] 2,000 unit PO DAILY 02/18/18 [History] Ferrous Sulfate [Iron] 325 mg PO DAILY 02/18/18 [History] Flaxseed Oil [[place]-3 Flaxseed Oil] 1,000 mg PO DAILY 02/18/18 [History] Gabapentin [Neurontin] 400 mg PO BID 02/18/18 [History] Multivitamin [Multivitamins] 1 each PO DAILY 02/18/18 [History] Tamsulosin [Flomax] 0.4 mg PO DAILY 02/18/18 [History] 3 Allergy/AdvReac Type Severity Reaction Status Date / Time No Known Allergies Allergy Verified 05/06/18 21:26 All Systems PM: A 10-system review of systems was performed and is negative for pertinent findings except as documented above in the HPI. - Constitutional Vitals: Temp Pulse Resp BP Pulse Ox 98.0 F 89 16 174/71 99 05/06/18 22:47 05/06/18 22:47 05/06/18 22:47 05/06/18 22:47 05/06/18 22:47 Exam: Vitals: Reviewed and seen to be within normal limits General: Well-developed elderly male lying comfortably in bed in no acute distress Skin: Warm and supple HEENT: Moist mucous membranes. Mild conjunctivae pallor. Neck: No lymphadenopathy. No JVD. No carotid bruits. No palpable thyroid. Chest: Normal thoracic expansion. Normal breath sounds. Clear to auscultation. Heart: Irregularly irregular but not tachycardic. Abdomen: Non-distended, soft and non-tender to palpation. Extremities: 2+ pitting edema in both lower extremities but no cyanosis or pain on palpation. Neurological: Awake, alert and oriented to person, place and time. 4/4 strength x all 4 extremities. Adequate handgrip. Psych: Affect appropriate and answers questions coherently. Internal Med - H&P Results - Labs CBC & Chem 7: 05/06/18 19:20 05/06/18 19:20 - Assessment and plan (1) Afib Current Visit: Yes Status: Acute Assessment and plan: New onset. Currently rate controlled. [id number] score of 5 based on HTN, age and prior stroke. This represents a high risk for ischemic stroke and warrants anticoagulation. However his reports a prior brain bleed in this patient who is 87 years of age and rather frail. The risk of a another bleeding episode exists and was discussed in detail with the patient and his . -Will hold off on urgent anticoagulation for the time being pending further discussion with the primary provider and flight communications operator based on risk estimates. -He received loading dose of ASA in the ER. Will continue dual antiplatelet therapy he takes at home of ASA 81mg + clopidogrel 75mg daily. -Obtain another troponin level to ensure he is not having an acute coronary syndrome as the inducing factor. -Check TSH. -Check TTE to assess for valvulopathy and EF given the pedal edema and left costophrenic angle blunting which could be a sign of heart failure. -Monitor on telemetry. -Will start metoprolol succinate 25mg daily to assist with rate control. Qualifiers: Atrial fibrillation type: unspecified Qualified Code(s): I48.91 - Unspecified atrial fibrillation (2) Fatigue Current Visit: Yes Status: Acute Assessment and plan: Unclear etiology. He has anemia and hyponatremia which can be concomitant factors. -Will treat hyponatremia with IV NS overnight to assess response as he may be intravascularly depleted although edematous peripherally. If no improvement, will check urine lytes and osm. -Will continue iron supplementation for anemia. -Close monitoring. 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 This needs to be corroborated. -Continue dual antiplatelet therapy. Qualifiers: CVA mechanism: thrombosis Precerebral and cerebral artery: middle cerebral artery Laterality of affected vessel: right Qualified Code(s): I63.311 - Cerebral infarction due to thrombosis of right middle cerebral artery (4) HTN (hypertension) Current Visit: Yes Status: Chronic Assessment and plan: Well controlled. -Continue home medications. Qualifiers: Hypertension type: essential hypertension Qualified Code(s): I10 - Essential (primary) hypertension (5) Hyponatremia Current Visit: Yes Status: Acute Assessment and plan: Unclear etiology; possibly from intravascular depletion. -Will give a trial of saline and recheck BMP. If no improvement, will check urine lytes and osm for better assessment. (6) DVT prophylaxis Current Visit: No Status: Acute Assessment and plan: SubQ heparin for now. - Time Spent With Patient Total time spent is greater than 50% in coordination of care (as documented) at patient's floor/unit and/or counseling patient: 25 - 35 minutes
[2018-05-07] MEDS: 0.9 % Sodium Chloride 1,000 ML IVC SCH ×2 (00:17→12:52)
[2018-05-07 05:05] LABS: Prothrombin Time 11.1 Seconds (9.4-12.1)
[2018-05-07 05:22] LABS: Chol/HDL Ratio 2.9 (0-4.9)
[2018-05-07 05:23] LABS: Troponin I < 0.03 ng/mL (< 0.04)
[2018-05-07 05:37] LABS: Thyroid Stimulating Hormone 3.535 mcIU/mL (0.340-5.600)
[2018-05-07] MEDS ORDERED: amLODIPine 5 MG TABLET PO SCH (09:00)
[2018-05-07] MEDS ORDERED: Multivit/Ca/Min/Fe/FA 1 TAB TABLET PO SCH (09:00)
[2018-05-07] MEDS ORDERED: Cholecalciferol (D-3) 1,000 UNIT TABLET PO SCH (09:00)
[2018-05-07] MEDS ORDERED: Lisinopril 20 MG TABLET PO SCH (09:00)
[2018-05-07] MEDS ORDERED: Metoprolol XL (24 HR) Succ 25 MG TAB.ER.24H PO SCH (09:00)
[2018-05-07] MEDS ORDERED: Aspirin Enteric Coated 81 MG Tablet PO SCH (09:00)
[2018-05-07] MEDS ORDERED: Finasteride 5 MG TABLET PO SCH (09:00)
[2018-05-07 09:37] LABS: Magnesium 1.9 mg/dL (1.6-2.6)
--- NOTE | 2018-05-07 10:14 | Cardiology Consult Note ---
Date of Encounter: 05/07/18 Time of Encounter: 10:13 Assessment and Plan (1) New onset atrial fibrillation Current Visit: Yes Status: Acute Patient presented to the ER with symptoms of feeling lightheaded and generalized weakness. EKG showed atrial fibrillation which was new. Was started on metroprolol XL 25 mg yesterday. Today, patient is asymptomatic and rate controlled. Repeat EKG at 1411 shows normal sinus rhythm with ventricular rate of 68 bpm with first degree AV block (pr interval at 222). Discussed at length with patient and family the risk/benefits of anticoagulation. Patients [id number] score is 5, due to age, HTN, Stroke hx. However, patients [id number] score is 9, given patients walking instability and risk of fall along with history, patient is not a candidate for anticoagulation at this time due to high risk of bleeding. Patient and patient family are in agreement with this decision. Recommend continued rate control with metoprolol XL with outpatient follow up. TTE showed EF of 60-65% without evidence of valvular disease or pulmonary hypertension. Discussion w patient/family: The assessment and plan as outlined above was discussed with the patient and/or family members who expressed understanding and agreement. All questions were answered. Thank you for involving us in the care of your patient. Please call with any questions. History of Present Illness Consult date: 05/07/18 Requesting physician: Will Tafoya Consult reason: New onset atrial fibrillation Chief complaint: Lightheaded History of present illness: Mr. Leong is a 87 year old male presenting for cardiology consult for new onset atrial fibrillation. Past medical history significant for CVA 15- 20 years ago with possible hemorrhagic bleed with residual right side weakness and HTN. Patient presented to the ER on 05/06/18 feeling lightheaded, states that he had woken up that morning feeling "rotten". Patient states that he also had generalized weakness that had been ongoing for the past few days. Patient denies any recent medication changes or illness. He denies any focal neurological changes, chest pain, palpitations, or shortness of breath, PND, or orthopnea. Patient had gone to for evaluation and was told to have further evaluation in the ER. Per family, patient has not been diagnosed with atrial fibrillation in the past. He did note increased lower extremity swelling bilaterally over the past month, but denies history of CHF and does not take a diuretic at home. Patients family does state that he is very unsteady with walking and has fallen multiple times in the past, patient denies any recent fall or LOC. ER performed EKG which showed new onset atrial fibrillation with Mg, TSH, Potassium, troponin and BNP within normal limits. Found to be hyponatremic with WBC at 2.8 which was patients baseline. CXR was negative for acute cardiopulmonary process and CT showed chronic microvascular changes without evidence of acute incranial process. He was given aspirin 324mg and admitted. Hospitalist service started patient on metroprolol 25 mg and ordered TTE. Today, patient states that he woke up feeling back to baseline, without feeling of being lightheaded or dizzy. States that generalized weakness has improved and continues to deny any chest pain, abdominal pain, nausea, vomiting, palpitations, sob, or syncope. Past Med Surg Social Fam HX - Past Medical History Attestation: Yes The following information was validated with the patient. Source: patient, old records reviewed, obtained from family, nursing notes reviewed Medical history: cancer, CVA Psychiatric history: no psych history - Social History Smoking Status: Never smoker Smokeless Tobacco Status: No Alcohol use: none Drug use: none - Family History Mother Living Status: Hx Family Cancer: Yes Medications and Allergies Amlodipine Besylate 10 mg PO DAILY 11/28/17 [History] Clopidogrel [Plavix] 75 mg PO DAILY 11/28/17 [History] Finasteride [Proscar] 5 mg PO DAILY 11/28/17 [History] Lisinopril [Zestril] 20 mg PO DAILY 11/28/17 [History] Simvastatin [Zocor] 10 mg PO DAILY 11/28/17 [History] Aspirin [Lo-Dose Aspirin EC] 81 mg PO DAILY 02/18/18 [History] Cholecalciferol (Vitamin D3) [Vitamin D] 2,000 unit PO DAILY 02/18/18 [History] Ferrous Sulfate [Iron] 325 mg PO DAILY 02/18/18 [History] Flaxseed Oil [[place]-3 Flaxseed Oil] 1,000 mg PO DAILY 02/18/18 [History] Gabapentin [Neurontin] 400 mg PO BID 02/18/18 [History] Multivitamin [Multivitamins] 1 each PO DAILY 02/18/18 [History] Tamsulosin [Flomax] 0.4 mg PO DAILY 02/18/18 [History] 3 Allergy/AdvReac Type Severity Reaction Status Date / Time No Known Allergies Allergy Verified 05/06/18 21:26 All Systems Review: The remainder of the systems were reviewed and are negative - Constitutional Constitutional: fatigue, frequent falls, weakness, no chills, no fever(s), no headache(s), no night sweats, no snoring, no stops breathing during sleep, no weight gain, no weight loss - EENT Eyes: no blurred vision, no loss of vision Nose, mouth and throat: no dysphagia - Cardiovascular Cardiovascular: irregular heart rhythm, leg edema, lightheadedness, no chest pain at rest, no chest pain with exertion, no claudication, no diaphoresis, no dyspnea at rest, no dyspnea on exertion, no orthopnea, no palpitations, no paroxysmal nocturnal dyspnea, no syncope - Respiratory Respiratory: no cough, no dyspnea, no wheezing - Gastrointestinal Gastrointestinal: no abdominal pain, no constipation, no diarrhea, no nausea - Integumentary Integumentary: no rash - Neurological Neurological: no focal weakness, no numbness, no syncope, no tingling Physical Examination Vital Signs, Last 4 Hours Temp Pulse Resp BP Pulse Ox 05/07/18 07:02 97.9 F 86 17 152/78 97 General: No Apparent Distress HEENT: Atraumatic, Normocephaly Neck: No JVD Cardiac: Reg Rate and Rhythm, Normal S1 and S2, Other Lungs: Normal Breath Sounds, No Wheeze, Rales, Rhonchi Neuro: Alert and responsive, No focal deficits noted Abdomen: Soft, Non-Tender Skin: No rashes noted on visualized skin Musculoskeletal: No Chest Wall Tenderness Extremities: Normal Pulses, Other (1 to 2+ pitting edema bilateral LE) Results 05/06/18 19:20 05/06/18 19:20 Lab Results 05/07/18 05/07/18 05/07/18 04:40 04:40 04:40 PT 11.1 INR 1.0 APTT 29.0 Magnesium 1.9 Troponin I < 0.03 Triglycerides 95 Cholesterol 143 LDL Cholesterol, Calc 74 VLDL Cholesterol, Calc 19 HDL Cholesterol 50 Cholesterol/HDL Ratio 2.9 TSH 3.535 - Imaging and Cardiology Chest Xray: report reviewed, image reviewed Echo: report reviewed - EKG Interpretation EKG results cardiology: personally reviewed (EKG on 05/06/18 showed vent rate of 91 bpm, showing new atrial fibrillation, with ST depression in leads V2- V5 that is unchanged from previous EKG on 11/28/17. Repeat EKG on 05/07/18 at 1411 shows ventricular rate of 68 bpm, pr interval at 222, regular rhythm. NSR with first degree AV block.) Consult Discharge Plan - Plan Referrals: Lincoln Meneses MD [Primary Care Provider] - 05/13/18 2:00 pm
--- NOTE | 2018-05-07 19:43 | Discharge Summary ---
Date of Encounter: 05/07/18 Time of Encounter: 09:50 - Discharge Diagnosis (1) Fatigue Priority: Secondary Status: Acute Assessment and Plan: Likely secondary to new onset A. fib, as well as hyponatremia. Patient is tolerating controlled, hyponatremia is improved, patient states that he is feeling better. Continue to monitor for safety and falls at home. Qualifiers: Fatigue type: unspecified Qualified Code(s): R53.83 - Other fatigue (2) Hyponatremia Priority: Secondary Status: Acute Assessment and Plan: Unclear etiology. Pt is being treated with IVF 0.9NS at 80ml/hour. Plan to not overcorrect, < 8meq/L in first 24 hours. Improving. (3) New onset atrial fibrillation Priority: Primary Status: Acute Assessment and Plan: New onset a-fib. Toprol XL 25mg po daily added. He is now NSR and rate controlled. Continue at discharge Follow with cardiology Pt not a candidate for anticoagulation due to high risk of bleeding, prior history of bleeding, and falls. (4) Weakness Priority: Secondary Status: Acute Assessment and Plan: Plan as above. (5) CVA (cerebral vascular accident) Priority: Secondary Status: Chronic Assessment and Plan: Prior history and pt has right sided deficit. Continue to monitor for falls and safety. 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 Continue home medications. Qualifiers: Hypertension type: essential hypertension Qualified Code(s): I10 - Essential (primary) hypertension (7) DVT prophylaxis Priority: Secondary Status: Acute Assessment and Plan: SCDs Hospital course: Mr. Leong is a 87 year old male with past medical history including hypertension , hyperlipidemia, CVA, iron deficiency anemia. Patient presented to the emergency department with recent weakness and fatigue. Patient was found to have new onset A. fib and has been placed on Toprol XL 25 mg daily and is in normal sinus rhythm and rate controlled. Patient was also found to have hyponatremia, unclear etiology. He was treated with gentle IV fluid hydration and sodium has returned to normal. Patient with mild anemia, he is already currently taking ferrous sulfate daily. Patient's vitals are stable and within normal limits. He was evaluated by cardiology no further testing is required at this time and he should follow-up with them in the clinic. Patient will be discharged in stable condition. Discharge discussed with: patient, family, nurse - Time Spent with Patient Total time spent providing and/or coordinating discharge services: Less than 30 minutes - Discharge Medications Prescriptions: Metoprolol XL (24 HR) Succ [Toprol Xl] 25 mg PO DAILY #30 tab.er.24h Home Medications: Amlodipine Besylate 10 mg PO DAILY 11/28/17 [History] Clopidogrel [Plavix] 75 mg PO DAILY 11/28/17 [History] Finasteride [Proscar] 5 mg PO DAILY 11/28/17 [History] Lisinopril [Zestril] 20 mg PO DAILY 11/28/17 [History] Simvastatin [Zocor] 10 mg PO DAILY 11/28/17 [History] Aspirin [Lo-Dose Aspirin EC] 81 mg PO DAILY 02/18/18 [History] Cholecalciferol (Vitamin D3) [Vitamin D3] 2,000 unit PO DAILY 02/18/18 [History] Ferrous Sulfate [Iron] 325 mg PO DAILY 02/18/18 [History] Flaxseed Oil [[place]-3 Flaxseed Oil] 1,000 mg PO DAILY 02/18/18 [History] Gabapentin [Neurontin] 400 mg PO BID 02/18/18 [History] Multivitamin [Multivitamins] 1 each PO DAILY 02/18/18 [History] Tamsulosin [Flomax] 0.4 mg PO DAILY 02/18/18 [History] Metoprolol XL (24 HR) Succ [Toprol Xl] 25 mg PO DAILY #30 tab.er.24h 05/07/18 [ Rx] Allergies/Adverse Reactions: 3 Allergy/AdvReac Type Severity Reaction Status Date / Time No Known Allergies Allergy Verified 05/06/18 21:26 Date of admission: 05/07/18 02:34 Primary care physician: Lincoln Meneses MD Consults: 05/07/18 15:01 Consult to Occupational Therapy [CONS] Routine Comment: Evaluate, develop and implement POC Reason for Consult: evaluation for weakness/fatigue Does patient have active BEDREST order?: No Is patient medically & hemodynamically stable?: Yes Patient assessed for mobility or mobilized this visit?: Yes Consult to Physical Therapy [CONS] Routine Comment: Evaluate, develop and implement POC Reason for Consult: evaluation Does patient have active BEDREST order?: No Is patient medically & hemodynamically stable?: Yes Patient assessed for mobility or mobilized this visit?: Yes Discharging clinician: Anna Esparza Anticipated date of discharge: 05/07/18 - Constitutional Vitals: Temp Pulse Resp BP Pulse Ox 98.5 F 73 16 161/63 96 05/07/18 18:39 05/07/18 18:39 05/07/18 18:39 05/07/18 18:39 05/07/18 18:39 General appearance: Present: cooperative, A&O X 3, pleasant, no acute distress, answers questions appropriately - Head Head exam: Present: atraumatic, normal inspection, normocephalic - Eye Eye exam: Present: normal appearance, conjuntiva pink, sclera anicteric - Neck Neck exam general surgery: Present: supple, trachea midline. Absent: lymphadenopathy, tenderness - Respiratory Respiratory exam: Present: CTAB. Absent: accessory muscle use, chest wall tenderness, rales, respiratory distress, rhonchi, wheezes - Cardiovascular Cardiovascular exam: Present: RRR, +S1, +S2. Absent: diastolic murmur, gallop, rubs, systolic murmur - GI/Abdominal GI/Abdominal exam: Present: normal bowel sounds, soft. Absent: distended, hepatomegaly, tenderness - Extremities Exam Extremities exam: Present: normal capillary refill, normal inspection, warm, radial pulses palpable and symmetrical. Absent: calf tenderness, cyanotic, pedal edema, tenderness - Neurological Exam Neurological exam: Present: alert, oriented X3, facial droop, speech deficit. Absent: altered, no focal deficits, strengths equal and symetr throughout, pronater drift - Skin Skin exam: Present: dry, intact, normal color, warm. Absent: rash - Patient Status Disposition: Home, Self-Care Condition: Good Functional capacity at discharge: uses cane/walker Overall status at discharge: patient is progressing back to baseline - Discharge Instructions Follow Up With: Lincoln Meneses MD [Primary Care Provider] - 05/13/18 2:00 pm Additional Instructions: Follow up with Dr. Meneses in the next 3-5 days for a recheck. Take your medications as directed. Your new prescription is at your pharmacy. Return to the ER as needed for any other problems or concerns, or if your symptoms return or worsen. Resume your normal medications and return to your normal diet and activties as tolerated. - Diet and Activity Activity: increase activity as tolerated Diet: advance to your usual diet
--- NOTE | 2018-05-07 20:27 | Electrocardiograph Report ---
[place] [id number] Test Date: 2018-05-06 Pat Name: Lyle Leong Department: 103 Room: 3B65 Gender: M [employer]: MUNIRA : 1930 Requested By: Christen Hi Order Number: [id number] Reading MD: Jannet Mora Measurements Intervals [place] Rate: 91 P: TN: 0 QRS: 12 QRSD: 96 T: 64 QT: 327 QTc: 376 Interpretive Statements ATRIAL FIBRILLATION MODERATE ST DEPRESSION [0.05+ mV ST DEPRESSION] Electronically Signed On 05-07-2018 17:07:33 EDT by Jannet Mora
[2018-05-08 03:31] VITALS: BP 138/63
[2018-05-08 07:09] LABS: Basophils % 0.7 %; Eosinophils # 0.1 K/mcL (0.0-0.6); Eosinophils % 3.1 %; Hematocrit 33.9 % (37.5-50.1); Hemoglobin 11.3 g/dL (12.9-16.9); Lymphocytes # 0.8 K/mcL (0.6-4.6); Lymphocytes % 27.2 %; Mean Corpuscular HGB Conc 33.3 g/dL (31.6-35.5); Mean Corpuscular Hemoglobin 29.7 pg (28.0-33.3); Mean Platelet Volume 9.5 fL (9.4-12.4); Monocytes # 0.4 K/mcL (0.0-1.3); Monocytes % 14.1 %; Neutrophils # 1.6 K/mcL (1.6-8.9); Platelet Count 176 K/mcL (140-400); Red Blood Count 3.81 M/mcL (4.19-5.50); Red Cell Distribution Width 12.6 % (11.5-14.5); Segmented Neutrophils % 54.9 %
[2018-05-08 07:28] LABS: BUN/Creatinine Ratio 12 (6-26); Blood Urea Nitrogen 13 mg/dL (8-23); Calcium 9.9 mg/dL (8.6-10.3); Carbon Dioxide 25 mEq/L (23-29); Chloride 101 mEq/L (98-107); Glucose 112 mg/dL (70-105); Osmolality,Calculated 275 (280-300); Potassium 3.9 mEq/L (3.5-5.1); Sodium 132 mEq/L (136-145); eGFR For Non-African Americans > 60 (> 60)
--- NOTE | 2018-05-08 07:53 | Internal Med Progress Note ---
Hospitalist Progress Note - Encounter Date of Encounter: 05/08/18 Time of Encounter: 07:40 - Subjective Interval History: Pt was seen and assessed at bedside at 0740a.m. He is alert, awake, and per pt and , back to baseline. He states that he is feeling well and wants to go home. Pt denies nausea, vomiting, diarrhea, constipation, headache, vision changes, chest pain, or SOB. - Exam Vitals: Temp Pulse Resp BP Pulse Ox 98.3 F 70 14 138/63 97 05/08/18 03:30 05/08/18 03:30 05/08/18 03:30 05/08/18 03:30 05/08/18 03:30 Exam: General: Pt sitting in chair at bedside, no distress. 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 RRR Lungs: clear throughout without wheezing, rales, or ronchi, respirations are unlabored Abdomen: soft and non tender with bowel sound present Psych: Normal affect with good eye contact - Assessment and Plan (1) Fatigue Current Visit: Yes Status: Acute Assessment and Plan: Likely secondary to new onset A. fib, as well as hyponatremia. Patient is tolerating BB, hyponatremia is improved, patient states that he is feeling better. Continue to monitor for safety and falls at home. Pt has no PT/OT needs at home. (2) Hyponatremia Current Visit: Yes Status: Resolved Assessment and Plan: Unclear etiology. Corrected with IVF 0.9NS at 80ml/hour. Resolved. Appears to be chronically hyponatremic. (3) New onset atrial fibrillation Current Visit: Yes Status: Acute Assessment and Plan: New onset a-fib. Toprol XL 25mg po daily added. He is now NSR and rate controlled. Continue at discharge Follow with cardiology Pt not a candidate for anticoagulation due to high risk of bleeding, prior history of bleeding, and falls. (4) Weakness Current Visit: Yes Status: Acute Assessment and Plan: Plan as above. No PT/OT needs at discharge. (5) CVA (cerebral vascular accident) Current Visit: Yes Status: Chronic Assessment and Plan: Prior history and pt has right sided deficit. (6) HTN (hypertension) Current Visit: Yes Status: Chronic Assessment and Plan: Chronic. Stable. Continue home medications. (7) DVT prophylaxis Current Visit: Yes Status: Acute Assessment and Plan: SCDs DVT Prophylaxis: SCDs - Time Spent with Patient Total time spent is greater than 50% in coordination of care (as documented) at patient's floor/unit and/or counseling patient: less than 15 minutes Plan of Care Discussed with: patient ( and son at bedside.) Internal Medicine: Result - Labs CBC & Chem 7: 05/08/18 06:50 05/08/18 06:50 Labs: Short CBC 05/08/18 Range/Units 06:50 WBC 2.9 L (4.3-11.1) K/mcL Hgb 11.3 L (12.9-16.9) g/dL Hct 33.9 L (37.5-50.1) % Plt Count 176 (140-400) K/mcL Neutrophils # 1.6 (1.6-8.9) K/mcL BMP 05/07/18 05/08/18 15:11 06:50 Sodium 135 L 132 L Potassium 3.9 Chloride 101 Carbon Dioxide 25 BUN 13 Creatinine 1.11 Glucose 112 H Calcium 9.9 Cardiac Enzymes 05/07/18 Range/Units 04:40 Troponin I < 0.03 (< 0.04) ng/mL - ABG Interpretation ABG results: PT/INR, D-dimer PT 11.1 Seconds (9.4-12.1) 05/07/18 04:40 - Impressions Impressions Echocardiogram 05/07/18 08:00 Impressions: LVEF 60-65%. Indeterminate diastolic function. Normal right ventricular structure and function. No significant valvular dysfunction. No pulmonary hypertension. Left Ventricular Wall Motion: Rest Echo Findings All wall segments showed normal motion. Findings: Study Quality * Technically adequate exam. ECG Findings * Atrial fibrillation. Left Ventricle * LVEF 60-65%. * Normal LV chamber size, wall thickness and function. * Indeterminate diastolic function. Right Ventricle * Normal right ventricular structure and function. Left Atrium * Normal left atrial size. Right Atrium * Normal right atrial size. Aortic Valve * No aortic stenosis. * Trace aortic regurgitation. * Aortic valve not well visualized. Mitral Valve * No mitral regurgitation. * No mitral stenosis. * Mitral valve not optimally visualized in all available windows. Tricuspid Valve * Tricuspid valve not well visualized. * Trace tricuspid regurgitation. Pulmonic Valve * Pulmonic valve is not well visualized. * No pulmonic stenosis. * No pulmonic regurgitation. Pulmonary Artery * Pulmonary artery not well visualized. Aorta * Normally sized aortic root. Pericardium * There is no pericardial effusion present. Interatrial Septum * No evidence of PFO by color Doppler. Consult Discharge Plan - Plan Additional Instructions: Follow up with Dr. Meneses in the next 3-5 days for a recheck. Take your medications as directed. Your new prescription is at your pharmacy. Return to the ER as needed for any other problems or concerns, or if your symptoms return or worsen. Resume your normal medications and return to your normal diet and activties as tolerated. Referrals: Lincoln Meneses MD [Primary Care Provider] - 05/13/18 2:00 pm Prescriptions: Metoprolol XL (24 HR) Succ [Toprol Xl] 25 mg PO DAILY #30 tab.er.24h (1) Fatigue Qualifiers: Fatigue type: unspecified Qualified Code(s): R53.83 - Other fatigue (5) CVA (cerebral vascular accident) Qualifiers: CVA mechanism: thrombosis Precerebral and cerebral artery: middle cerebral artery Laterality of affected vessel: right Qualified Code(s): I63.311 - Cerebral infarction due to thrombosis of right middle cerebral artery (6) HTN (hypertension) Qualifiers: Hypertension type: essential hypertension Qualified Code(s): I10 - Essential (primary) hypertension
--- NOTE | 2018-05-09 02:21 | Electrocardiograph Report ---
[address] [place] [address] Test Date: 2018-05-07 Pat Name: Lyle Leong Department: 113 Room: 3B65 Gender: Bias Binding Cutter: : 1930 Requested By: Dori Minaya Order Number: [id number] Reading MD: Jannet Mora Measurements Intervals [place] Rate: 68 P: 67 LA: 222 QRS: 6 QRSD: 110 T: 60 QT: 395 QTc: 411 Interpretive Statements SINUS RHYTHM WITH FIRST DEGREE AV BLOCK Electronically Signed On 05-08-2018 16:22:39 EDT by Jannet Mora
== END 2018-05-08 08:18 | disposition home or self-care (01) ==
LOC: EMEROO 18:52 → 3BNU 18:52
PROVIDERS: ADMIT Internal Medicine; ATTEND Internal Medicine

== ENCOUNTER 2018-07-14 10:35 | Inpatient (IN) ==
[2018-07-14] MEDS ORDERED: Isovue-370 500 ML INFUS..BTL IV ONE (11:21)
--- NOTE | 2018-07-14 11:24 | Emergency Department Note ---
Disposition Clinical Impression: Hyponatremia, Urinary retention Burst fracture of lumbar vertebra Qualifiers: Encounter type: initial encounter Fracture type: closed Qualified Code(s): S32.001A - Stable burst fracture of unspecified lumbar vertebra, initial encounter for closed fracture Syncope Qualifiers: Syncope type: unspecified Qualified Code(s): R55 - Syncope and collapse Disposition: Admitted As Inpatient Condition: Good Fall HPI - General Chief Complaint: ED Fall Stated Complaint: "fall 10/ back pain" Time Seen by Provider: 07/14/18 10:46 Source: patient Mode of arrival: ambulatory Limitations: no limitations Nursing Notes Reviewed: Yes Vital Signs Reviewed: Yes - History of Present Illness HPI Narrative: Patient presents today for evaluation of dizziness, back pain, difficulty with urination. The patient fell approximately 3 days ago when he was standing up to go to the bathroom. Patient states that he became lightheaded and syncopized. Fell against the door and has some mild bruising to the right upper thoracic lateral region. Patient states that since this time he has been feeling just weak with increasing amounts of back pain as well as decreasing amounts of urination. Patient states he has not urinated within the last 12 hours. Bedside ultrasound was performed the patient does have significant urinary retention. On exam he did have what felt like instrumentation to the scrotum which he then states he did not remember any procedures performed but states that he did have procedure for erections performed in the past. They are unsure what procedure. The patient does take aspirin and Plavix but no other blood thinners. He does have a history of hypertension and takes hypertension medications. Patient does have wheezing but has no history of COPD. Does have his significant smoking history but does not currently smoke. - Related Data Home Medications Medication Instructions Recorded Confirmed Amlodipine Besylate 10 mg PO DAILY 11/28/17 07/14/18 Clopidogrel [Plavix] 75 mg PO DAILY 11/28/17 07/14/18 Finasteride [Proscar] 5 mg PO DAILY 11/28/17 07/14/18 Lisinopril [Zestril] 20 mg PO DAILY 11/28/17 07/14/18 Simvastatin [Zocor] 10 mg PO DAILY 11/28/17 07/14/18 Aspirin [Lo-Dose Aspirin EC] 81 mg PO DAILY 02/18/18 07/14/18 Cholecalciferol (Vitamin D3) 2,000 unit PO DAILY 02/18/18 07/14/18 [Vitamin D3] Ferrous Sulfate [Iron] 325 mg PO DAILY 02/18/18 07/14/18 Flaxseed Oil [Humphrey-3 Flaxseed Oil] 1,000 mg PO DAILY 02/18/18 07/14/18 Gabapentin [Neurontin] 400 mg PO BID 02/18/18 07/14/18 Multivitamin [Multivitamins] 1 each PO DAILY 02/18/18 07/14/18 Tamsulosin [Flomax] 0.4 mg PO DAILY 02/18/18 07/14/18 Previous Rx's Medication Instructions Recorded Metoprolol XL (24 HR) Succ [Toprol 25 mg PO DAILY #30 tab.er.24h 05/07/18 Xl] Allergies Allergy/AdvReac Type Severity Reaction Status Date / Time No Known Allergies Allergy Verified 05/06/18 21:26 Review of Systems: CONSTITUTIONAL: Weakness and fatigue without fevers or chills. HEENT: Eyes: No visual changes. Ears, Nose, Throat: No hearing loss, difficulty talking or unable to swallow. SKIN: No rash or itching. CARDIOVASCULAR: No chest pain, chest pressure or chest discomfort. No palpitations or edema. RESPIRATORY: No shortness of breath, cough or sputum. GASTROINTESTINAL: Abdominal pain with known vomiting or diarrhea. GENITOURINARY: Decreased urination NEUROLOGICAL: Dizziness with associated syncope. No headache, paralysis, ataxia , numbness or tingling in the extremities. MUSCULOSKELETAL: back pain Fall PMH - Past Medical History Medical history: Reports: cancer, CVA Psychiatric history: Reports: no psych history - Social History Smoking Status: Never smoker Alcohol use: Reports: none Drug use: Reports: none Physical Exam General: Well appearing, nontoxic, no acute distress Head: Normocephalic Atraumatic Eyes: PERRL, EOMI ENT: Airway patent, no stridor Neck: supple Chest: mild wheezing b/l Cardiac: Regular rhythm Abdomen: soft, mild tenderness with associated distention; no guarding, rebound , or tenderness to percussion Musculoskeletal: Calves symmetric, +1 pitting edema Skin: No rash, normal skin tone Neuro: Alert and Oriented to person, place, and time; no sensation deficit present throughout the lower extremities. Urinary retention likely secondary from previously known BPH, decreased strength in the lower extremities bilaterally - secondary to pain. Course - Reevaluation(s) Reevaluation #1: Patient had approximately 500 mL of urine obtained on Mullins catheter. Did not relieve any of his symptoms. CAT scan shows an L1 burst fracture with 4 mm retropulsion.. Mild leukopenia and mild hyponatremia. Patient case was discussed with orthopedic spine surgery Dr. Young and the patient will be evaluated while in the hospital. No need for transfer at this time. I did evaluate the patient and he has full sensation throughout the groin as well as intact rectal tone. The patient has decreased strength in the lower extremities which is likely secondary to pain. Patient will be admitted for sick workup as well as fracture and pain control. Patient discussed the hospitalist. Patient except for admission. Vital Signs Temperature 97.7 F 07/14/18 10:39 Pulse Rate 60 07/14/18 10:39 Respiratory Rate 18 07/14/18 10:39 Blood Pressure 138/61 07/14/18 10:39 O2 Sat by Pulse Oximetry 98 07/14/18 10:39 Temperature 97.7 F 07/14/18 10:56 Pulse Rate 76 07/14/18 15:05 Respiratory Rate 19 07/14/18 15:05 Blood Pressure 148/77 07/14/18 15:05 O2 Sat by Pulse Oximetry 95 07/14/18 15:05 Oxygen Delivery Oxygen Delivery Room Air Fall - Medical Records Medical records reviewed: Yes I reviewed the patient's medical records. - Lab Data Lab results reviewed: Yes I reviewed the patient's lab results. Result diagrams: 07/14/18 11:46 07/14/18 11:46 Lab Results 07/14/18 07/14/18 07/14/18 Range/Units 11:46 11:46 11:46 WBC 3.9 L (4.3-11.1) K/mcL RBC 3.45 L (4.19-5.50) M/mcL Hgb 10.1 L (12.9-16.9) g/dL Hct 30.9 L (37.5-50.1) % MCV 89.6 (83.0-100.0) fL MCH 29.3 (28.0-33.3) pg MCHC 32.7 (31.6-35.5) g/dL RDW 12.2 (11.5-14.5) % Plt Count 177 (140-400) K/mcL MPV 9.4 (9.4-12.4) fL Immature Gran % 0.3 (0-4) % Seg Neutrophils % 66.0 % Lymphocytes % 15.5 % Monocytes % 15.7 % Eosinophils % 2.0 % Basophils % 0.5 % Neutrophils # 2.6 (1.6-8.9) K/mcL Lymphocytes # 0.6 (0.6-4.6) K/mcL Monocytes # 0.6 (0.0-1.3) K/mcL Eosinophils # 0.1 (0.0-0.6) K/mcL Basophils # 0.0 (0.0-0.2) K/mcL Sodium 129 L (136-145) mEq/L Potassium 4.0 (3.5-5.1) mEq/L Chloride 96 L (98-107) mEq/L Carbon Dioxide 28 (23-29) mEq/L BUN 18 (8-23) mg/dL Creatinine 1.11 (0.70-1.30) mg/dL Est GFR ( Amer) > 60 (> 60) Est GFR (Non-Af Amer) > 60 (> 60) BUN/Creatinine Ratio 16 (6-26) Glucose 136 H (70-105) mg/dL Calculated Osmolality 272 L (280-300) Calcium 9.8 (8.6-10.3) mg/dL Troponin I < 0.03 (< 0.04) ng/mL B-Natriuretic Peptide 124 H (Less than 100) pg/mL Urine Color (Yellow) Urine Clarity (Clear) Urine pH (5.0-8.0) pH Units Ur Specific [place] (1.010-1.025) Urine Protein (Neg-Trace) mg/dL Urine Glucose (UA) (Normal) mg/dL Urine Ketones (Negative) mg/dL Urine Blood (Negative) Urine Nitrite (Negative) Urine Bilirubin (Negative) Urine Urobilinogen (Normal) mg/dL Ur Leukocyte Esterase (Negative) Urine Microscopic RBC (0-3) per hpf Urine Microscopic WBC (0-3) per hpf Ur Squamous Epith Cells (None-Few) per lpf Urine Bacteria (None-Few) per hpf Hyaline Casts (None-Few) per lpf Ur Culture Indicated? (NO) 07/14/18 Range/Units 12:57 WBC (4.3-11.1) K/mcL RBC (4.19-5.50) M/mcL Hgb (12.9-16.9) g/dL Hct (37.5-50.1) % MCV (83.0-100.0) fL MCH (28.0-33.3) pg MCHC (31.6-35.5) g/dL RDW (11.5-14.5) % Plt Count (140-400) K/mcL MPV (9.4-12.4) fL Immature Gran % (0-4) % Seg Neutrophils % % Lymphocytes % % Monocytes % % Eosinophils % % Basophils % % Neutrophils # (1.6-8.9) K/mcL Lymphocytes # (0.6-4.6) K/mcL Monocytes # (0.0-1.3) K/mcL Eosinophils # (0.0-0.6) K/mcL Basophils # (0.0-0.2) K/mcL Sodium (136-145) mEq/L Potassium (3.5-5.1) mEq/L Chloride (98-107) mEq/L Carbon Dioxide (23-29) mEq/L BUN (8-23) mg/dL Creatinine (0.70-1.30) mg/dL Est GFR ( Amer) (> 60) Est GFR (Non-Af Amer) (> 60) BUN/Creatinine Ratio (6-26) Glucose (70-105) mg/dL Calculated Osmolality (280-300) Calcium (8.6-10.3) mg/dL Troponin I (< 0.04) ng/mL B-Natriuretic Peptide (Less than 100) pg/mL Urine Color Yellow (Yellow) Urine Clarity Clear (Clear) Urine pH 6.5 (5.0-8.0) pH Units Ur Specific [place] 1.008 L (1.010-1.025) Urine Protein 100 H (Neg-Trace) mg/dL Urine Glucose (UA) Normal (Normal) mg/dL Urine Ketones Negative (Negative) mg/dL Urine Blood Negative (Negative) Urine Nitrite Negative (Negative) Urine Bilirubin Negative (Negative) Urine Urobilinogen Normal (Normal) mg/dL Ur Leukocyte Esterase Negative (Negative) Urine Microscopic RBC 0-3 (0-3) per hpf Urine Microscopic WBC 0-3 (0-3) per hpf Ur Squamous Epith Cells Moderate H (None-Few) per lpf Urine Bacteria None Seen (None-Few) per hpf Hyaline Casts None Seen (None-Few) per lpf Ur Culture Indicated? NO (NO) - Radiology Data Radiology results reviewed: Yes I reviewed the patient's radiology results. - EKG Data EKG attestation: Yes I reviewed and interpreted this EKG. EKG results narrative: EKG shows sinus rhythm with a MO interval of 235. QRS 112. QTC 428. Patient has no significant ST elevations or depressions. No significant changes from previous of 05/07/18.
[2018-07-14] MEDS ORDERED: Isovue-370 500 ML INFUS..BTL PO ONE (11:42)
[2018-07-14] MEDS ORDERED: Ipratropium/Albuterol Neb 3 ML IH STA (11:45)
[2018-07-14] MEDS ORDERED: 0.9 % Sodium Chloride 500 ML IVC ONE (11:46)
[2018-07-14 12:04] LABS: Basophils % 0.5 %; Eosinophils # 0.1 K/mcL (0.0-0.6); Hematocrit 30.9 % (37.5-50.1); Hemoglobin 10.1 g/dL (12.9-16.9); Immature Granulocytes % 0.3 % (0-4); Lymphocytes # 0.6 K/mcL (0.6-4.6); Lymphocytes % 15.5 %; Mean Corpuscular HGB Conc 32.7 g/dL (31.6-35.5); Mean Corpuscular Hemoglobin 29.3 pg (28.0-33.3); Mean Corpuscular Volume 89.6 fL (83.0-100.0); Mean Platelet Volume 9.4 fL (9.4-12.4); Monocytes # 0.6 K/mcL (0.0-1.3); Monocytes % 15.7 %; Neutrophils # 2.6 K/mcL (1.6-8.9); Platelet Count 177 K/mcL (140-400); Red Blood Count 3.45 M/mcL (4.19-5.50); Red Cell Distribution Width 12.2 % (11.5-14.5)
[2018-07-14 12:27] LABS: Troponin I < 0.03 ng/mL (< 0.04)
[2018-07-14 12:34] LABS: BUN/Creatinine Ratio 16 (6-26); Blood Urea Nitrogen 18 mg/dL (8-23); Calcium 9.8 mg/dL (8.6-10.3); Carbon Dioxide 28 mEq/L (23-29); Chloride 96 mEq/L (98-107); Glucose 136 mg/dL (70-105); Osmolality,Calculated 272 (280-300); Sodium 129 mEq/L (136-145); eGFR For Non-African Americans > 60 (> 60)
[2018-07-14] MEDS ORDERED: *HR* OxyCODONE Immed Rel 5 MG TABLET PO STA (13:31)
[2018-07-14 13:53] LABS: Bilirubin,Urine Negative (Negative); Blood,Urine Negative (Negative); Clarity,Urine Clear (Clear); Color,Urine Yellow (Yellow); Glucose,Urine (UA) Normal (Normal); Ketones,Urine Negative (Negative); Leukocyte Esterase,Urine Negative (Negative); Nitrite,Urine Negative (Negative); PH,Urine 6.5 pH Units (5.0-8.0); Protein,Urine 100 mg/dL (Neg-Trace); Specific Gravity,Urine 1.008 (1.010-1.025); Urobilinogen,Urine Normal (Normal)
[2018-07-14 13:54] LABS: Bacteria,Urine None Seen per hpf (None-Few); Hyaline Casts,Urine None Seen per lpf (None-Few); RBC,Urine 0-3 per hpf (0-3); Squamous Epithelial Cell,Urine Moderate per lpf (None-Few); WBC,Urine 0-3 per hpf (0-3)
[2018-07-14] MEDS ORDERED: Acetaminophen 325 MG TABLET PO PRN (15:08)
[2018-07-14] MEDS ORDERED: Naloxone 0.4 MG/ML INJ IVP PRN (15:08)
[2018-07-14] MEDS ORDERED: 0.9 % Sodium Chloride 1,000 ML IVC SCH (15:15)
--- NOTE | 2018-07-14 16:13 | Internal Med History&Physical ---
<VilmaAnna - Last Filed: 07/14/18 16:04> Date of Encounter: 07/14/18 Time of Encounter: 16:00 Internal Medicine - H&P: HPI Chief complaint: Back pain, fall, urinary retention Admitted From: Home Plans for Post Hospital Care: Home History of present illness: Mr. Leong is a 87 year old male with PMH including chronic anemia, HTN, TiA, CVA , a-fib. Pt presented to the ED with c/o dizziness at 0200 on the a.m. of 07/11 while using his bedside commode at home. He states that he became dizzy, stood up, and fell into the wall near his bedside commode. He denies loss of consciousness, but did hit his head. Since that time, he has had increasing back pain and difficulty with ambulation and with ADLs. Since today he has had urinary retention and reports that he has not had a bowel movement and it is "hard to remember when " he had his last one. On arrival, pt was found to have > 500ml urine in his bladder and pt now has a sloan. Past Med Surg Social Fam HX - Past Medical History Medical history: cancer, CVA Additional medical history: Enlarged prostate Psychiatric history: no psych history - Social History Smoking Status: Never smoker Smokeless Tobacco Status: No Alcohol use: none Drug use: none - Family History Mother Living Status: Hx Family Cancer: Yes Internal Medicine - H&P: Meds Amlodipine Besylate 10 mg PO DAILY 11/28/17 [History] Clopidogrel [Plavix] 75 mg PO DAILY 11/28/17 [History] Finasteride [Proscar] 5 mg PO DAILY 11/28/17 [History] Lisinopril [Zestril] 20 mg PO DAILY 11/28/17 [History] Simvastatin [Zocor] 10 mg PO DAILY 11/28/17 [History] Aspirin [Lo-Dose Aspirin EC] 81 mg PO DAILY 02/18/18 [History] Cholecalciferol (Vitamin D3) [Vitamin D3] 2,000 unit PO DAILY 02/18/18 [History] Ferrous Sulfate [Iron] 325 mg PO DAILY 02/18/18 [History] Flaxseed Oil [[place]-3 Flaxseed Oil] 1,000 mg PO DAILY 02/18/18 [History] Gabapentin [Neurontin] 400 mg PO BID 02/18/18 [History] Multivitamin [Multivitamins] 1 each PO DAILY 02/18/18 [History] Tamsulosin [Flomax] 0.4 mg PO DAILY 02/18/18 [History] Metoprolol XL (24 HR) Succ [Toprol Xl] 25 mg PO DAILY #30 tab.er.24h 05/07/18 [ Rx] 3 Allergy/AdvReac Type Severity Reaction Status Date / Time No Known Allergies Allergy Verified 05/06/18 21:26 All Systems PM: A 10-system review of systems was performed and is negative for pertinent findings except as documented above in the HPI. - Constitutional Constitutional: falls, weakness, no chills, no fatigue, no malaise - EENT Eyes: no blurry vision, no change in vision, no irritation, no photophobia - Cardiovascular Cardiovascular ROS IM: edema, lightheadedness, no chest pain, no diaphoresis, no orthopnea, no palpitations - Respiratory Respiratory: no dyspnea, no dyspnea on exertion, no wheezing, no pain on inspiration, no chest congestion - Gastrointestinal Gastrointestinal: no abdominal pain, no belching, no diarrhea, no heartburn, no nausea, no vomiting - Genitourinary Genitourinary ROS male: difficulty urinating, no urinary frequency, no urinary hesitancy, no urinary incontinence, no urinary urgency - Musculoskeletal Musculoskeletal ROS IM: back pain, limited range of motion, no neck pain, no numbness, no stiffness, no tingling - Integumentary Integumentary IM: no new lesions - Neurological Neurological ROS: dizziness, weakness, no frequent falls, no numbness, no restless legs, no tingling - Constitutional Vitals: Temp Pulse Resp BP Pulse Ox 97.7 F 76 19 148/77 95 07/14/18 10:56 07/14/18 15:05 07/14/18 15:05 07/14/18 15:05 07/14/18 15:05 General appearance: Present: cooperative, A&O X 3, pleasant, no acute distress, answers questions appropriately Exam: As above - Head Head exam: Present: atraumatic, normal inspection, normocephalic - Eye Eye exam: Present: normal appearance, conjuntiva pink, sclera anicteric - Neck Neck exam general surgery: Present: supple, trachea midline. Absent: lymphadenopathy, tenderness - Respiratory Respiratory exam: Present: CTAB. Absent: accessory muscle use, rales, rhonchi, wheezes - Cardiovascular Cardiovascular exam: Present: RRR, +S1, +S2. Absent: diastolic murmur, gallop, rubs, systolic murmur - GI/Abdominal GI/Abdominal exam: Present: normal bowel sounds, soft, no peritoneal signs. Absent: distended, hepatomegaly, tenderness - Extremities Exam Extremities exam: Present: normal capillary refill, normal inspection, warm, radial pulses palpable and symmetrical. Absent: calf tenderness, cyanotic, pedal edema, tenderness - Neurological Exam Neurological exam: Present: alert, oriented X3, no focal deficits. Absent: altered, strengths equal and symetr throughout, facial droop, speech deficit - Skin Skin exam: Present: dry, intact, normal color, warm. Absent: rash Internal Med - H&P Results - Labs CBC & Chem 7: 07/14/18 11:46 07/14/18 11:46 - Assessment and plan (1) Burst fracture of lumbar vertebra Current Visit: Yes Status: Acute Assessment and plan: Acute fracture status post fall at home. Patient had near syncopal episode at home, falling onto his buttocks, as well as falling into the wall and hitting his back and head. Patient has had increasing difficulty walking, moving, and some urinary retention today. ER physician consulted Dr. Young, who will see the patient in the hospital. Lidoderm patch for pain contro Tramadol po q6h prn pain Monitor for safety and falls. Qualifiers: Encounter type: initial encounter Fracture type: closed Qualified Code(s) : S32.001A - Stable burst fracture of unspecified lumbar vertebra, initial encounter for closed fracture (2) Hyponatremia Current Visit: Yes Status: Acute Assessment and plan: reports decreased po intake over the last 2 months, increased since fall. Likely due to poor po intake. Pt received an IV bolus of 0.9NS in the ER, continue gentle IVF hydration overnight with IVF at 60ml/hour. Sodium 129 REcheck labs at 2300 and again in the a.m., adjust fluids accordingly (3) Syncope Current Visit: Yes Status: Ruled-out Assessment and plan: Pt with near syncopal episode and dizziness at home, resulting in a fall. Plan as above. Qualifiers: Syncope type: unspecified Qualified Code(s): R55 - Syncope and collapse (4) Urinary retention Current Visit: Yes Status: Acute Assessment and plan: Pt found to have urinary retention today. Pt is 3 days s/p fall at home with burst fracture to lumbar vertebrae. Pt with prior history of same and takes Flomax at home. Continue here. Urology will be consulted for evaluation. (5) Afib Current Visit: Yes Status: Acute Assessment and plan: Pt denies known history of a-fib, but family member at bedside states that he has history. EKG NSR, rate 62. Continue BB, Plavix. Pt had echo in May,. Showed LVEF of 60-65% with indeterminant diastolic function and no significant valvular dysfunction. Qualifiers: Atrial fibrillation type: unspecified Qualified Code(s): I48.91 - Unspecified atrial fibrillation (6) DVT prophylaxis Current Visit: Yes Status: Acute Assessment and plan: Heparin subcutaneous. Up to chair twice a day. (7) CVA (cerebral vascular accident) Current Visit: Yes Status: Chronic Assessment and plan: Prior history. Patient does not appear to have any deficits. Continue aspirin and Plavix. Continue telemetry. Qualifiers: CVA mechanism: thrombosis Precerebral and cerebral artery: middle cerebral artery Laterality of affected vessel: right Qualified Code(s): I63.311 - Cerebral infarction due to thrombosis of right middle cerebral artery (8) HTN (hypertension) Current Visit: Yes Status: Chronic Assessment and plan: Chronic. Well controlled. Continue home medications. Qualifiers: Hypertension type: essential hypertension Qualified Code(s): I10 - Essential (primary) hypertension (9) Dizziness Current Visit: Yes Status: Acute Assessment and plan: Pt reports sitting on his bedside commode at 0230 in the am and had a dizzy spell and stood up. He states that it only lasted " a few seconds". He fell on his buttocks and also hit his back on the wall, resulting in burst fracture of L1 inferior endplate. Pt had echo 05/07/18 that showed pEF with no significant valvular dysfunction. He has been seen by cardiology in early May and was diagnosed with new onset a- fib and was placed on Metroprolol XL 25mg po daily. Monitor shows NSR and is rate controlled. Pt is not anticoagulated due to falls and prior history of CVA He denies diziness since that time. Head CT negative. Will review medications and vitals, unclear etiology. Monitor for safety and falls PT/OT consultation Orthostatic vitals ordered and pending. Telemetry - Time Spent With Patient Total time spent is greater than 50% in coordination of care (as documented) at patient's floor/unit and/or counseling patient: less than 15 minutes <NiurkaDuncan - Last Filed: 07/14/18 17:40> Date of Encounter: 07/14/18 Internal Medicine - H&P: HPI History of present illness: Mr. Leong is a 87 year old male All Systems PM: A 10-system review of systems was performed and is negative for pertinent findings except as documented above in the HPI. - Constitutional Vitals: Temp Pulse Resp BP Pulse Ox 97.9 F 91 18 162/79 94 07/14/18 17:03 07/14/18 17:03 07/14/18 17:03 07/14/18 17:03 07/14/18 17:03 Internal Med - H&P Results - Labs CBC & Chem 7: 07/14/18 11:46 07/14/18 11:46 - Assessment and plan (1) HTN (hypertension) Current Visit: Yes Status: Chronic Qualifiers: Hypertension type: essential hypertension Qualified Code(s): I10 - Essential (primary) hypertension (2) DVT prophylaxis Current Visit: Yes Status: Acute (3) Afib Current Visit: Yes Status: Acute Qualifiers: Atrial fibrillation type: unspecified Qualified Code(s): I48.91 - Unspecified atrial fibrillation (4) CVA (cerebral vascular accident) Current Visit: Yes Status: Chronic Qualifiers: CVA mechanism: thrombosis Precerebral and cerebral artery: middle cerebral artery Laterality of affected vessel: right Qualified Code(s): I63.311 - Cerebral infarction due to thrombosis of right middle cerebral artery (5) Burst fracture of lumbar vertebra Current Visit: Yes Status: Acute Qualifiers: Encounter type: initial encounter Fracture type: closed Qualified Code(s) : S32.001A - Stable burst fracture of unspecified lumbar vertebra, initial encounter for closed fracture (6) Syncope Current Visit: Yes Status: Ruled-out Qualifiers: Syncope type: unspecified Qualified Code(s): R55 - Syncope and collapse (7) Hyponatremia Current Visit: Yes Status: Acute (8) Urinary retention Current Visit: Yes Status: Acute (9) Dizziness Current Visit: Yes Status: Acute - Time Spent With Patient Total time spent is greater than 50% in coordination of care (as documented) at patient's floor/unit and/or counseling patient: - Attending Attestation I have seen and examined the patient with PINKING MACHINE OPERATOR Anna Esparza and agree with his/her assessment and plan. 87-year-old male with history of A. fib, CVA, hypertension , was admitted for fall secondary to orthostasis. No postictal confusion. His evaluation showed hyponatremia and burst L1 fracture. Otherwise, afebrile and hemodynamically stable. Exam is nonfocal with tenderness on lower thoracic/ upper lumbar spine. He did not have any saddle anesthesia, however did have urinary retention for which he required Sloan catheter insertion. Will get spine surgery evaluation, analgesics, IV fluid for mild hyponatremia. Appears to have chronic leg swelling which may be attributed it to Norvasc rather than heart failure. May want to consider switching Norvasc to another antihypertensive agents as an outpatient. Duncan Bah MD
[2018-07-14] MEDS: traMADol 50 MG TABLET PO PRN (17:45)
[2018-07-14] MEDS: *HR* Heparin 5,000 UNIT/ML VIAL SQ SCH (17:45)
[2018-07-14] MEDS: Gabapentin 400 MG CAPSULE PO SCH (22:17)
[2018-07-15 01:55] LABS: Basophils % 0.3 %; Eosinophils # 0.1 K/mcL (0.0-0.6); Eosinophils % 2.2 %; Hematocrit 31.5 % (37.5-50.1); Hemoglobin 10.2 g/dL (12.9-16.9); Immature Granulocytes % 0.3 % (0-4); Lymphocytes # 0.7 K/mcL (0.6-4.6); Lymphocytes % 19.3 %; Mean Corpuscular HGB Conc 32.4 g/dL (31.6-35.5); Mean Corpuscular Hemoglobin 28.7 pg (28.0-33.3); Mean Corpuscular Volume 88.5 fL (83.0-100.0); Mean Platelet Volume 9.7 fL (9.4-12.4); Monocytes # 0.6 K/mcL (0.0-1.3); Monocytes % 15.2 %; Neutrophils # 2.3 K/mcL (1.6-8.9); Platelet Count 193 K/mcL (140-400); Red Blood Count 3.56 M/mcL (4.19-5.50); Red Cell Distribution Width 11.9 % (11.5-14.5); Segmented Neutrophils % 62.7 %
[2018-07-15 02:15] LABS: BUN/Creatinine Ratio 14 (6-26); Blood Urea Nitrogen 16 mg/dL (8-23); Calcium 9.6 mg/dL (8.6-10.3); Carbon Dioxide 24 mEq/L (23-29); Chloride 97 mEq/L (98-107); Glucose 133 mg/dL (70-105); Osmolality,Calculated 269 (280-300); Potassium 3.9 mEq/L (3.5-5.1); Sodium 128 mEq/L (136-145); eGFR For Non-African Americans > 60 (> 60)
[2018-07-15] MEDS: *HR* Heparin 5,000 UNIT/ML VIAL SQ SCH ×3 (06:52→23:44)
[2018-07-15] MEDS: Flaxseed Oil [Omega-3 Flaxseed Oil] 1,000 MG PO SCH (07:39)
--- NOTE | 2018-07-15 08:15 | Urology - Consult Note ---
<Destiny Martinez N - Last Filed: 07/15/18 08:11> Date of Encounter: 07/15/18 Time of Encounter: 08:11 - Assessment and Plan (1) Urinary retention Current Visit: Yes Status: Acute Assessment and plan: Patient is an 87-year-old male who presents with history of acute urinary retention. The patient is currently taking Flomax daily, and we will continue this, however, there is concern with lightheadedness side effect and recent fall. I discussed a voiding trial with the patient and explained this will take place within 7-10 days in our office. I communicated this with the nurse who was present during his examination, and she will arrange for a follow-up appointment in our office. Catheter care instructions will be provided upon discharge. Urology CN:THELMA Consult date: 07/15/18 Reason for consult Urology: Other (acute urinary retention) History of present illness: Patient is an 87-year-old male who presents with a history of acute urinary retention following a fall and back injury at home on 07/14/2018. Patient seen and examined sitting upright in chair with nurse at bedside. The patient was taken to the emergency department where he was subsequently admitted for further evaluation. On admission, the patient stated it was difficult for him to urinate and bladder scan revealed 500 mL's of urine. Sloan catheter was placed, and clear urine is draining into bedside bag. Patient states he is a patient of Dr. Channing Randle, and he is being treated for benign prostatic hypertrophy with Flomax daily. Patient denies a history of urinary retention. Patient denies any known family history of prostate, bladder or renal cancer. Patient denies gross hematuria, dysuria, flank pain, fever, chills. BUN and creatinine are reassuring and within normal range. Past Med Surg Social Fam HX - Past Medical History Medical history: CVA Additional medical history: Enlarged prostate Psychiatric history: no psych history - Past Surgical History Surgical History: appendectomy, herniorrhaphy - Social History Smoking Status: Former smoker Smokeless Tobacco Status: No Alcohol use: none Drug use: none - Family History Mother Living Status: Hx Family Cancer: Yes Medications and Allergies Amlodipine Besylate 10 mg PO DAILY 11/28/17 [History] Clopidogrel [Plavix] 75 mg PO DAILY 11/28/17 [History] Finasteride [Proscar] 5 mg PO DAILY 11/28/17 [History] Lisinopril [Zestril] 20 mg PO DAILY 11/28/17 [History] Simvastatin [Zocor] 10 mg PO DAILY 11/28/17 [History] Aspirin [Lo-Dose Aspirin EC] 81 mg PO DAILY 02/18/18 [History] Cholecalciferol (Vitamin D3) [Vitamin D3] 2,000 unit PO DAILY 02/18/18 [History] Ferrous Sulfate [Iron] 325 mg PO DAILY 02/18/18 [History] Flaxseed Oil [[place]-3 Flaxseed Oil] 1,000 mg PO DAILY 02/18/18 [History] Gabapentin [Neurontin] 400 mg PO BID 02/18/18 [History] Multivitamin [Multivitamins] 1 each PO DAILY 02/18/18 [History] Tamsulosin [Flomax] 0.4 mg PO DAILY 02/18/18 [History] Metoprolol XL (24 HR) Succ [Toprol Xl] 25 mg PO DAILY #30 tab.er.24h 05/07/18 [ Rx] 3 Allergy/AdvReac Type Severity Reaction Status Date / Time No Known Allergies Allergy Verified 05/06/18 21:26 Review of Systems - Constitutional fatigue, no chills, no fever(s) - EENT Nose, mouth and throat: dizziness, headache(s) - Cardiovascular no chest pain, no diaphoresis, no dyspnea - Respiratory no cough, no dyspnea - Gastrointestinal no abdominal pain, no nausea, no vomiting - Genitourinary difficulty urinating, urinary hesitancy, no dysuria, no flank pain, no hematuria , no testicular pain, no urinary frequency, no urinary incontinence, no urinary urgency - Musculoskeletal back pain, no numbness - Integumentary no erythema, no rash, no swelling - Neurological no confusion, no syncope - Psychiatric no anxiety, no confusion - Hematologic/Lymphatic no easy bleeding, no easy bruising - Allergic/Immunologic no throat swelling, no wheezing Exam Initial Vital Signs Temp Pulse Resp BP Pulse Ox 97.7 F 60 18 138/61 98 07/14/18 10:39 07/14/18 10:39 07/14/18 10:39 07/14/18 10:39 07/14/18 10:39 - General physical appearance Present: well developed, no distress, no pain - Eyes Present: PERRL, normal ocular movement - ENT Present: normal nares - Neck Present: no masses, trachea midline - Respiratory Present: normal respiratory effort - Cardiovascular Cardiovascular exam IM: RRR - Abdomen Abdomen: Present: soft, non tender - Genitourinary other (urethral sloan catheter indwelling and draining clear urine into bedside bag) - Integumentary Present: no rash, no abnormal pigmentation - Neurologic Present: normal coordination - Musculoskeletal Present: other (normal posture ) Urology Results - Labs 07/15/18 01:15 07/15/18 01:15 Abnormal lab results WBC 3.6 K/mcL (4.3-11.1) L 07/15/18 01:15 RBC 3.56 M/mcL (4.19-5.50) L 07/15/18 01:15 Hgb 10.2 g/dL (12.9-16.9) L 07/15/18 01:15 Hct 31.5 % (37.5-50.1) L 07/15/18 01:15 Sodium 128 mEq/L (136-145) L 07/15/18 01:15 Chloride 97 mEq/L (98-107) L 07/15/18 01:15 Glucose 133 mg/dL (70-105) H 07/15/18 01:15 Calculated Osmolality 269 (280-300) L 07/15/18 01:15 B-Natriuretic Peptide 124 pg/mL (Less than 100) H 07/14/18 11:46 Ur Specific [place] 1.008 (1.010-1.025) L 07/14/18 12:57 Urine Protein 100 mg/dL (Neg-Trace) H 07/14/18 12:57 Ur Squamous Epith Cells Moderate per lpf (None-Few) H 07/14/18 12:57 Diabetes panel 07/15/18 Range/Units 01:15 Sodium 128 L (136-145) mEq/L Potassium 3.9 (3.5-5.1) mEq/L Chloride 97 L (98-107) mEq/L Carbon Dioxide 24 (23-29) mEq/L BUN 16 (8-23) mg/dL Creatinine 1.12 (0.70-1.30) mg/dL Glucose 133 H (70-105) mg/dL Calcium 9.6 (8.6-10.3) mg/dL Calcium panel 07/15/18 Range/Units 01:15 Calcium 9.6 (8.6-10.3) mg/dL Pituitary panel 07/15/18 Range/Units 01:15 Sodium 128 L (136-145) mEq/L Potassium 3.9 (3.5-5.1) mEq/L Chloride 97 L (98-107) mEq/L Carbon Dioxide 24 (23-29) mEq/L BUN 16 (8-23) mg/dL Creatinine 1.12 (0.70-1.30) mg/dL Glucose 133 H (70-105) mg/dL Calcium 9.6 (8.6-10.3) mg/dL Adrenal panel 07/15/18 Range/Units 01:15 Sodium 128 L (136-145) mEq/L Potassium 3.9 (3.5-5.1) mEq/L Chloride 97 L (98-107) mEq/L Carbon Dioxide 24 (23-29) mEq/L BUN 16 (8-23) mg/dL Creatinine 1.12 (0.70-1.30) mg/dL Glucose 133 H (70-105) mg/dL Calcium 9.6 (8.6-10.3) mg/dL All other labs normal. Consult Discharge Plan - Plan Referrals: Lincoln Meneses MD [Primary Care Provider] - <Rg Randle - Last Filed: 07/15/18 15:46> Date of Encounter: 07/15/18 - Assessment and Plan (1) Urinary retention Current Visit: Yes Status: Acute Assessment and plan: Patient seen in conjunction with physician district administrative assistant. I am concerned that his recent fall was secondary to orthostatic hypotension which could be caused by tamsulosin. I feel the patient should stop the medication and an order was submitted. I recommend continuing the catheter until he further recovers. This can be left in place for up to 4 weeks. I recommend follow-up with the urology service in 3-4 weeks. This will be arranged as an outpatient. If the patient continues to have difficulty urinating I did discuss alternative options which includes intermittent catheterization, greenlight PVP, REZUM. Continue finasteride. Exam Initial Vital Signs Temp Pulse Resp BP Pulse Ox 97.7 F 60 18 138/61 98 07/14/18 10:39 07/14/18 10:39 07/14/18 10:39 07/14/18 10:39 07/14/18 10:39 Urology Results - Labs 07/15/18 01:15 07/15/18 01:15 Abnormal lab results WBC 3.6 K/mcL (4.3-11.1) L 07/15/18 01:15 RBC 3.56 M/mcL (4.19-5.50) L 07/15/18 01:15 Hgb 10.2 g/dL (12.9-16.9) L 07/15/18 01:15 Hct 31.5 % (37.5-50.1) L 07/15/18 01:15 Sodium 128 mEq/L (136-145) L 07/15/18 01:15 Chloride 97 mEq/L (98-107) L 07/15/18 01:15 Glucose 133 mg/dL (70-105) H 07/15/18 01:15 Calculated Osmolality 269 (280-300) L 07/15/18 01:15 B-Natriuretic Peptide 124 pg/mL (Less than 100) H 07/14/18 11:46 Ur Specific [place] 1.008 (1.010-1.025) L 07/14/18 12:57 Urine Protein 100 mg/dL (Neg-Trace) H 07/14/18 12:57 Ur Squamous Epith Cells Moderate per lpf (None-Few) H 07/14/18 12:57 Diabetes panel 07/15/18 Range/Units 01:15 Sodium 128 L (136-145) mEq/L Potassium 3.9 (3.5-5.1) mEq/L Chloride 97 L (98-107) mEq/L Carbon Dioxide 24 (23-29) mEq/L BUN 16 (8-23) mg/dL Creatinine 1.12 (0.70-1.30) mg/dL Glucose 133 H (70-105) mg/dL Calcium 9.6 (8.6-10.3) mg/dL Calcium panel 07/15/18 Range/Units 01:15 Calcium 9.6 (8.6-10.3) mg/dL Pituitary panel 07/15/18 Range/Units 01:15 Sodium 128 L (136-145) mEq/L Potassium 3.9 (3.5-5.1) mEq/L Chloride 97 L (98-107) mEq/L Carbon Dioxide 24 (23-29) mEq/L BUN 16 (8-23) mg/dL Creatinine 1.12 (0.70-1.30) mg/dL Glucose 133 H (70-105) mg/dL Calcium 9.6 (8.6-10.3) mg/dL Adrenal panel 07/15/18 Range/Units 01:15 Sodium 128 L (136-145) mEq/L Potassium 3.9 (3.5-5.1) mEq/L Chloride 97 L (98-107) mEq/L Carbon Dioxide 24 (23-29) mEq/L BUN 16 (8-23) mg/dL Creatinine 1.12 (0.70-1.30) mg/dL Glucose 133 H (70-105) mg/dL Calcium 9.6 (8.6-10.3) mg/dL All other labs normal.
[2018-07-15] MEDS: Lisinopril 20 MG TABLET PO SCH (08:30)
[2018-07-15] MEDS: Multivit/Ca/Min/Fe/FA 1 TAB TABLET PO SCH (08:30)
[2018-07-15] MEDS: Finasteride 5 MG TABLET PO SCH (08:30)
[2018-07-15] MEDS: Gabapentin 400 MG CAPSULE PO SCH ×2 (08:30→21:05)
[2018-07-15] MEDS: amLODIPine 5 MG TABLET PO SCH (08:30)
[2018-07-15] MEDS: Metoprolol XL (24 HR) Succ 25 MG TAB.ER.24H PO SCH (08:30)
[2018-07-15] MEDS: Cholecalciferol (D-3) 1,000 UNIT TABLET PO SCH (08:30)
[2018-07-15] MEDS ORDERED: Ondansetron 4 MG/2 ML VIAL IVP PRN (09:23)
[2018-07-15] MEDS ORDERED: Ondansetron 4 MG/2 ML VIAL ONE (09:26)
[2018-07-15] MEDS: traMADol 50 MG TABLET PO PRN (10:45)
[2018-07-15] MEDS ORDERED: Ondansetron 4 MG/2 ML VIAL IVP SCH (12:00)
[2018-07-15] MEDS: Aspirin Enteric Coated 81 MG Tablet PO SCH (12:28)
[2018-07-15] MEDS: 0.9 % Sodium Chloride w KCl 20 MEQ/1,000 ML MLS IVC SCH (17:44)
[2018-07-15] MEDS: Metoclopramide 10 MG/2 ML VIAL IVP SCH ×2 (17:45→23:54)
--- NOTE | 2018-07-15 18:43 | Electrocardiograph Report ---
[address] [address] Test Date: 2018-07-14 Pat Name: Lyle Leong Department: [id number] Room: [facility] Gender: M Imagery Analyst: : 1930 Requested By: [id number] Order Number: [id number] Reading MD: Freddie Baldwin Measurements Intervals [place] Rate: 62 P: 51 CT: 235 QRS: 29 QRSD: 112 T: 58 QT: 421 QTc: 428 Interpretive Statements Sinus rhythm First degree AV block Low voltage, extremity leads Electronically Signed On 07-15-2018 18:41:46 EDT by Freddie Baldwin
--- NOTE | 2018-07-15 19:09 | Anesthesia Evaluation PreOp ---
<Lyle Aj - Last Filed: 07/15/18 19:07> Date of Encounter: 07/15/18 Time of Encounter: 19:07 - Past History Planned Operation: Lap. Nicole. 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 Alcohol Use: none Drug use: none Medications and Allergies Amlodipine Besylate 10 mg PO DAILY 11/28/17 [History] Clopidogrel [Plavix] 75 mg PO DAILY 11/28/17 [History] Finasteride [Proscar] 5 mg PO DAILY 11/28/17 [History] Lisinopril [Zestril] 20 mg PO DAILY 11/28/17 [History] Simvastatin [Zocor] 10 mg PO DAILY 11/28/17 [History] Aspirin [Lo-Dose Aspirin EC] 81 mg PO DAILY 02/18/18 [History] Cholecalciferol (Vitamin D3) [Vitamin D3] 2,000 unit PO DAILY 02/18/18 [History] Ferrous Sulfate [Iron] 325 mg PO DAILY 02/18/18 [History] Flaxseed Oil [Cordell-3 Flaxseed Oil] 1,000 mg PO DAILY 02/18/18 [History] Gabapentin [Neurontin] 400 mg PO BID 02/18/18 [History] Multivitamin [Multivitamins] 1 each PO DAILY 02/18/18 [History] Tamsulosin [Flomax] 0.4 mg PO DAILY 02/18/18 [History] Metoprolol XL (24 HR) Succ [Toprol Xl] 25 mg PO DAILY #30 tab.er.24h 05/07/18 [ Rx] 3 Allergy/AdvReac Type Severity Reaction Status Date / Time No Known Allergies Allergy Verified 05/06/18 21:26 - Meds/Allergy Pre-op Review Medications Reviewed: Yes Allergies Reviewed: Yes Beta Blockers on Current Med List: No Anesthesia Results - Labs 07/15/18 01:15 07/15/18 01:15 Echocardiogram Name: Lyle Leong Date of Study: 05/07/2018 EV/EV echocardiogram Impressions: LVEF 60-65%. Indeterminate diastolic function. Normal right ventricular structure and function. No significant valvular dysfunction. No pulmonary hypertension. 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) Other Medical History: Denies Any Significant HX Anesthesia History: No Prior Anesthetic Complications, Past Anesthesia Anesthesia Results - Labs 07/16/18 01:46 07/16/18 01:46 - Imaging EKG: report reviewed (07/14/2018 Sinus rhythm First degree AV block Low voltage, extremity leads) Anesthesia Exam Vital Signs/O2 Sat/Glucose, Most Recent Temp Pulse Resp BP Pulse Ox 98.2 F 78 16 138/79 95 07/16/18 06:37 07/16/18 06:37 07/16/18 06:37 07/16/18 06:37 07/16/18 06:37 Blood Glucose* 117 Height: 6'/1.83m Weight: 197 lbs/89.6 kg NPO (# of Hours): 8 Pain Scale: 0 Pain Scale Used: Numeric (1 - 10) - HEENT Pupil (Motor): EOMI Mallampati: II Teeth: Edentulous Denture Type: Upper: Complete, Lower: Complete Oral Opening: Greater than 3 - TYPE SOLDERING MACHINE TENDER LOC: Confused TYPE SOLDERING MACHINE TENDER Motor: Normal LUE, Normal LLE, Normal Face, Deficit RUE, Deficit RLE TYPE SOL[employer]ING MACHINE TENDER Sensory: Normal: RUE, LUE, RLE, LLE, Face - Cardiac Rhythm: Regular Murmur: None - Pulmonary Breath Sounds: bilateral Clear Respiratory Effort: Symmetrical
--- NOTE | 2018-07-15 21:02 | Internal Med Progress Note ---
Hospitalist Progress Note - Encounter Date of Encounter: 07/15/18 Time of Encounter: 19:00 - Subjective Interval History: SUBJECTIVE: The patient has experienced a syncopal episode at home recently. It was likely vasovagal; when he was sitting on a commode. Subsequently, he fell sustaining a burst fracture of lumbar 1 vertebra. He started doing some physical therapy. He continues to take analgesics to control his acute low back pain. Denies chest pain and difficulty breathing. Denies abdominal pain, nausea and vomiting. He does have indwelling Mullins catheter; inserted at admission for treatment of BPH with urinary tract obstruction. OBJECTIVE: Skin: Free of rash and discoloration. ENMT: Oral/pharyngeal mucosa is normal in appearance. Eyes: Sclera is white. There is no discharge from eyes. Respiratory: Normal breath sounds; no crackles or wheezes. CV: Heart is regular; no gallop or murmur. GI: Abdomen is soft and not tender. There is no palpable mass or visceromegaly. Neuro: There is no focal deficits. ASSESSMENT AND PLAN: Syncope, likely vasovagal. With fracture of L1, lumbar vertebra. We are waiting for recommendations from orthopedic surgery. The patient will likely benefit from physical therapy at the [facility]. Hyponatremia. Seems to be chronic/stable. The last sodium was 128; 129 on the day before. Paroxysmal atrial fibrillation. Due to his age and tendency to falls he would be a better candidate for anticoagulation. His last episode of PAF was during his last hospitalization here. He had recently CVA. He has not completely recovered from that. He would benefit from ECF. BPH with urinary tract obstruction. Mullins catheter will stay for 7-10 days. He is on Flomax. DISPOSITION: Xxxxx - Exam Vitals: Temp Pulse Resp BP Pulse Ox 98.2 F 89 17 141/73 92 07/15/18 19:00 07/15/18 19:00 07/15/18 19:00 07/15/18 19:00 07/15/18 19:00 Exam: xx - Assessment and Plan (1) Syncope Current Visit: Yes Status: Acute (2) Burst fracture of lumbar vertebra Current Visit: Yes Status: Acute (3) Hyponatremia Current Visit: Yes Status: Chronic (4) HTN (hypertension) Current Visit: Yes Status: Chronic (5) PAF (paroxysmal atrial fibrillation) Current Visit: Yes Status: Chronic (6) CVA (cerebral vascular accident) Current Visit: Yes Status: Chronic (7) Urinary retention Current Visit: Yes Status: Acute - Time Spent with Patient Total time spent is greater than 50% in coordination of care (as documented) at patient's floor/unit and/or counseling patient: 25 - 35 minutes Plan of Care Discussed with: patient Internal Medicine: Result - Labs CBC & Chem 7: 07/15/18 01:15 07/15/18 01:15 Labs: Short CBC 07/15/18 Range/Units 01:15 WBC 3.6 L (4.3-11.1) K/mcL Hgb 10.2 L (12.9-16.9) g/dL Hct 31.5 L (37.5-50.1) % Plt Count 193 (140-400) K/mcL Neutrophils # 2.3 (1.6-8.9) K/mcL BMP 07/15/18 01:15 Sodium 128 L Potassium 3.9 Chloride 97 L Carbon Dioxide 24 BUN 16 Creatinine 1.12 Glucose 133 H Calcium 9.6 - Impressions Impressions Lumbar Spine MRI 07/15/18 07:47 IMPRESSION: 1. Acute or recent inferior endplate fracture of L1 vertebral body. No significant retropulsion into the spinal canal. No significant spinal canal stenosis at this level. 2. Multilevel degenerative changes of the lumbar spine, with spinal canal stenosis most prominent at L4-L5. Grade 1 anterolisthesis of L4 relative to L5. 3. Additional multilevel degenerative changes of the lumbar spine are detailed above. D/ / Josiah Lombardo MD / Josiah Lombardo MD Interpreting Provider: Josiah Lombardo MD X-Ray 07/15/18 12:44 IMPRESSION: Distended right colon measures up to 9 cm. Other areas of moderately distended small large bowel loops probably in keeping with a pattern of ileus. D/ / Jorge Fritz / oJrge Fritz Interpreting Provider: Jorge Fritz Consult Discharge Plan - Plan Referrals: Lincoln Meneses MD [Primary Care Provider] - (1) Syncope Qualifiers: Syncope type: unspecified Qualified Code(s): R55 - Syncope and collapse (2) Burst fracture of lumbar vertebra Qualifiers: Encounter type: initial encounter Fracture type: closed Qualified Code(s): S32.001A - Stable burst fracture of unspecified lumbar vertebra, initial encounter for closed fracture (4) HTN (hypertension) Qualifiers: Hypertension type: essential hypertension Qualified Code(s): I10 - Essential (primary) hypertension (6) CVA (cerebral vascular accident) Qualifiers: CVA mechanism: thrombosis Precerebral and cerebral artery: middle cerebral artery Laterality of affected vessel: right Qualified Code(s): I63.311 - Cerebral infarction due to thrombosis of right middle cerebral artery
[2018-07-16 02:23] LABS: Basophils % 0.3 %; Eosinophils % 0.3 %; Hematocrit 29.4 % (37.5-50.1); Hemoglobin 9.5 g/dL (12.9-16.9); Immature Granulocytes % 0.3 % (0-4); Lymphocytes # 0.6 K/mcL (0.6-4.6); Lymphocytes % 15.5 %; Mean Corpuscular HGB Conc 32.3 g/dL (31.6-35.5); Mean Corpuscular Hemoglobin 28.7 pg (28.0-33.3); Mean Corpuscular Volume 88.8 fL (83.0-100.0); Mean Platelet Volume 9.7 fL (9.4-12.4); Monocytes # 0.6 K/mcL (0.0-1.3); Monocytes % 16.4 %; Neutrophils # 2.5 K/mcL (1.6-8.9); Platelet Count 191 K/mcL (140-400); Red Blood Count 3.31 M/mcL (4.19-5.50); Red Cell Distribution Width 11.9 % (11.5-14.5); Segmented Neutrophils % 67.2 %
[2018-07-16 02:45] LABS: BUN/Creatinine Ratio 19 (6-26); Blood Urea Nitrogen 23 mg/dL (8-23); Calcium 9.3 mg/dL (8.6-10.3); Carbon Dioxide 24 mEq/L (23-29); Chloride 99 mEq/L (98-107); Glucose 113 mg/dL (70-105); Osmolality,Calculated 274 (280-300); Potassium 3.9 mEq/L (3.5-5.1); Sodium 130 mEq/L (136-145); eGFR For Non-African Americans 57 (> 60)
[2018-07-16] MEDS: Metoclopramide 10 MG/2 ML VIAL IVP SCH ×3 (05:28→17:37)
[2018-07-16] MEDS: Cholecalciferol (D-3) 1,000 UNIT TABLET PO SCH (07:55)
[2018-07-16] MEDS: Aspirin Enteric Coated 81 MG Tablet PO SCH (07:55)
[2018-07-16] MEDS: Gabapentin 400 MG CAPSULE PO SCH (07:55)
[2018-07-16] MEDS: Finasteride 5 MG TABLET PO SCH (07:55)
[2018-07-16] MEDS: Multivit/Ca/Min/Fe/FA 1 TAB TABLET PO SCH (07:55)
[2018-07-16] MEDS: Flaxseed Oil [Omega-3 Flaxseed Oil] 1,000 MG PO SCH (07:55)
[2018-07-16] MEDS: Lisinopril 20 MG TABLET PO SCH (08:03)
[2018-07-16] MEDS: Metoprolol XL (24 HR) Succ 25 MG TAB.ER.24H PO SCH (08:03)
[2018-07-16] MEDS: amLODIPine 5 MG TABLET PO SCH (08:03)
[2018-07-16] MEDS: 0.9 % Sodium Chloride w KCl 20 MEQ/1,000 ML MLS IVC SCH (08:25)
--- NOTE | 2018-07-16 08:32 | Spine Progress Note ---
Date of Encounter: 07/15/18 Time of Encounter: 16:35 Subjective Principal diagnosis: Vertebral compression fracture, back pain Interval history: Mr. Leong is an 87-year-old gentleman who sustained a fall and felt immediate pain in his low back. He rated the pain is severe and 8 on a pain scale was transferred to [facility] further definitive management. He denied any bowel bladder symptomatology or radicular symptoms but had significant lumbar pain. He denied fevers or chills. Physical exam is afebrile vital signs stable he is neurovascularly intact with regard to his bilateral lower extremities. He has a negative straight leg raise. His hips move symmetrically. He has tenderness to palpation over the lumbar region in the midline. MRI lumbar spine reveals an acute vertebral compression fracture at L1. There is multilevel degenerative changes most notable at L5-S1. Impression: 1) vertebral compression fracture acute L1 2) osteopenia Plan: I discussed bracing and analgesics versus kyphoplasty. The patient would like to proceed with kyphoplasty as his has had the procedure and did very well. Risk benefits and possible competitions were discussed and the patient would like to proceed. Objective Vital signs: Vital Signs Temp Pulse Resp BP Pulse Ox 07/16/18 06:37 98.2 F 78 16 138/79 95 07/16/18 03:28 98.2 F 74 16 142/73 93 07/15/18 23:14 98.4 F 78 16 135/65 92 07/15/18 19:00 98.2 F 89 17 141/73 92 07/15/18 14:30 98.1 F 78 16 134/76 95 07/15/18 12:53 98.3 F 75 16 139/71 94 07/15/18 10:41 97.6 F 75 16 174/85 95 Intake and Output 07/15/18 07/16/18 07/16/18 23:59 07:59 15:59 Intake Total 1000 / 1000 Output Total 150 / 150 Balance -150 / -150 1000 / 1000 Intake: IV Fluids 1000 / 1000 KCl 20 mEq in 0.9% Sodium 1000 / 1000 Chloride 20 meq In 1,000 ml @ 75 mls/hr IVC .[id number] SMOOTH Rx#: [id number] Output: Catheter 150 / 150 Other: Weight 89.6 kg Blood Glucose* 117 Patient Weight 07/16/18 23:59 Weight 89.6 kg - Labs CBC & BMP: 07/16/18 01:46 07/16/18 01:46 Labs: Abnormal lab results WBC 3.7 K/mcL (4.3-11.1) L 07/16/18 01:46 RBC 3.31 M/mcL (4.19-5.50) L 07/16/18 01:46 Hgb 9.5 g/dL (12.9-16.9) L 07/16/18 01:46 Hct 29.4 % (37.5-50.1) L 07/16/18 01:46 Sodium 130 mEq/L (136-145) L 07/16/18 01:46 Est GFR (Non-Af Amer) 57 (> 60) L 07/16/18 01:46 Glucose 113 mg/dL (70-105) H 07/16/18 01:46 Calculated Osmolality 274 (280-300) L 07/16/18 01:46 B-Natriuretic Peptide 124 pg/mL (Less than 100) H 07/14/18 11:46 Ur Specific [place] 1.008 (1.010-1.025) L 07/14/18 12:57 Urine Protein 100 mg/dL (Neg-Trace) H 07/14/18 12:57 Ur Squamous Epith Cells Moderate per lpf (None-Few) H 07/14/18 12:57 Consult Discharge Plan - Plan Referrals: Lincoln Meneses MD [Primary Care Provider] -
[2018-07-16] MEDS ORDERED: Isovue-300 50 ML VIAL IVP ONE (09:48)
[2018-07-16] MEDS: Ringers Solution, Lactated 1,000 ML IVC SCH (10:00)
[2018-07-16] MEDS ORDERED: Lidocaine -MPF 2% 2 ML VIAL ONE (10:29)
[2018-07-16] MEDS ORDERED: *HR* FentaNYL (PF) 100 MCG/2 ML VIAL ONE (10:29)
[2018-07-16] MEDS ORDERED: *HR* Succinylcholine 200 MG/10 ML VIAL IVP ONE (10:29)
[2018-07-16] MEDS ORDERED: *HR* Propofol 200 MG/20 ML VIAL IVP ONE (10:29)
[2018-07-16] MEDS ORDERED: Lidocaine -MPF 4% 5 ML AMPUL ONE (10:29)
[2018-07-16] MEDS ORDERED: Dexamethasone 4 MG/ML VIAL ONE (10:29)
[2018-07-16] MEDS ORDERED: *HR* Rocuronium Bromide 50 MG/5 ML VIAL ONE (10:29)
[2018-07-16] MEDS ORDERED: Ondansetron 4 MG/2 ML VIAL ONE (10:29)
[2018-07-16] MEDS ORDERED: *HR* FentaNYL (PF) 100 MCG/2 ML VIAL IVP PRN (10:33)
[2018-07-16] MEDS ORDERED: *HR* Labetalol 20 MG/4 ML SYRINGE IVP PRN ×2 (10:33→11:39)
[2018-07-16] MEDS ORDERED: Ondansetron 4 MG/2 ML VIAL IVP ONE (10:33)
--- NOTE | 2018-07-16 10:52 | Orthopedic Operative Note ---
Date of procedure: 07/16/18 Pre-op diagnosis: Vertebral compression fracture, osteopenia Post-op diagnosis: same Operation/Findings: Kyphoplasty L1: The patient was brought to the operative theater where successful endotracheal anesthesia was performed. The patient was given antibiotics prior to the start of the procedure. Compression boots and stockings were used for deep vein thrombosis. Patient was then turned prone on a well-padded Trevor table. The back was prepped and draped in the usual sterile fashion. 2 C-arm fluorographic devices were brought into position such that simultaneous AP and lateral views centered over the involved L1 vertebral body could be performed. A stab incision was made over the superior-lateral aspect of the left L1 pedicle. We introduced a Jamshidi needle into the L1 vertebral body via a transpedicular route. We took biplanar images of the L1 vertebral body using fluorography. The needle was found to be in appropriate position and within the confines of the L1 vertebral body. We then introduced a biopsy trocar and obtained a biopsy specimen of the L1 vertebral body. This was sent for pathologic evaluation. We then removed the biopsy trocar and introduced a Kyphon balloon. The balloon was insufflated to approximately 5 mL volume and subsequently deflated. The balloon was seen to expand within the confines of the L1 vertebral body on biplanar fluorographic views. The balloon was then removed. We then inserted cement trochars and sequentially placed bone cement within the confines of the L1 vertebral body. We took intermittent fluorographic views which confirmed satisfactory placement of the cement. After completion of the cementation process, the trocar was removed. We took final AP and lateral fluorographic views. We then closed the stab incision with 2-0 nylon suture. A Band-Aid was placed over the wound. The patient was turned supine on a hospital bed and extubated. All sponge instrument and needle counts were correct at the end of the procedure. The patient tolerated the procedure well without complications. Anesthesia: GETA Surgeon: Yeyo Young Jr Was there an speech and language assistant present: No Estimated blood loss (cc): 2 Specimen: L1 vertebral biopsy Condition: stable Disposition: PACU
--- NOTE | 2018-07-16 11:22 | Anesthesia Evaluation Post Op ---
Date of Encounter: 07/16/18 Time of Encounter: 11:21 - Vital Signs Vital Signs: vss - Lungs Lungs: Clear Ascult./Percussion - Airway Airway: Non-obstructed - Mental Status Mental Status: Asleep with brisk response to light stimulation - Pain Pain Scale used: James (Faces) - Nausea Vomiting Nausea Vomiting: Not Present - Discharge PostOp Status: Transfer Patient to floor
[2018-07-16] MEDS ORDERED: Acetaminophen 325 MG TABLET PO PRN (11:39)
[2018-07-16] MEDS ORDERED: Ondansetron 4 MG/2 ML VIAL IVP PRN ×2 (11:39)
[2018-07-16] MEDS ORDERED: Naloxone 0.4 MG/ML INJ IVP PRN (11:39)
[2018-07-16] MEDS ORDERED: *HR* OxyCODONE Immed Rel 5 MG TABLET PO PRN (11:39)
[2018-07-16] MEDS: *HR* Heparin 5,000 UNIT/ML VIAL SQ SCH (17:38)
--- NOTE | 2018-07-16 21:22 | Internal Med Progress Note ---
Hospitalist Progress Note - Encounter Date of Encounter: 07/16/18 Time of Encounter: 19:00 - Subjective Interval History: SUBJECTIVE: The patient developed abdominal distention/pain yesterday afternoon. I put him on nothing by mouth diet; started on IV Reglan. He has less abdominal distention/pain the morning. He has passed his gas on a couple occasions in the last few hours. The patient has experienced a syncopal episode at home recently. It was likely vasovagal; when he was sitting on a commode. Subsequently, he fell sustaining a burst fracture of L1 vertebra. He started doing some physical therapy. He continues to take analgesics to control his acute low back pain. Denies chest pain and difficulty breathing. Denies abdominal pain, nausea and vomiting. He does have indwelling Mullins catheter; inserted at admission for treatment of BPH with urinary tract obstruction. OBJECTIVE: Skin: Free of rash and discoloration. ENMT: Oral/pharyngeal mucosa is normal in appearance. Eyes: Sclera is white. There is no discharge from eyes. Respiratory: Normal breath sounds; no crackles or wheezes. CV: Heart is regular; no gallop or murmur. GI: Abdomen is soft and not tender. There is no palpable mass or visceromegaly. Neuro: There is no focal deficits. ASSESSMENT AND PLAN: Syncope, likely vasovagal. With fracture of L1 vertebra. He is scheduled for surgery today morning. The patient will likely benefit from physical therapy at the [facility]. Ileus. Secondary to opiate analgesics/staying in bed. He was doing fine on clear liquids yesterday late evening. He is nothing by mouth today (awaiting his low back surgery). We will keep him on scheduled IV Reglan. Hyponatremia. Seems to be chronic/stable. The last sodium was 128; 129 on the day before. Paroxysmal atrial fibrillation. Due to his age and tendency to falls he would be a better candidate for anticoagulation. His last episode of PAF was during his last hospitalization here. He had recently CVA. He has not completely recovered from that. He would benefit from ECF. BPH with urinary tract obstruction. Mullins catheter will stay for 7-10 days. He is on Flomax. - Exam Vitals: Temp Pulse Resp BP Pulse Ox 99.1 F 85 16 163/76 93 07/16/18 18:22 07/16/18 18:22 07/16/18 18:22 07/16/18 18:22 07/16/18 18:22 Exam: xx - Assessment and Plan (1) Syncope Current Visit: Yes Status: Acute (2) Burst fracture of lumbar vertebra Current Visit: Yes Status: Acute (3) Ileus Current Visit: Yes Status: Acute (4) Hyponatremia Current Visit: Yes Status: Chronic (5) HTN (hypertension) Current Visit: Yes Status: Chronic (6) PAF (paroxysmal atrial fibrillation) Current Visit: Yes Status: Chronic (7) CVA (cerebral vascular accident) Current Visit: Yes Status: Chronic (8) Urinary retention Current Visit: Yes Status: Acute - Time Spent with Patient Total time spent is greater than 50% in coordination of care (as documented) at patient's floor/unit and/or counseling patient: 25 - 35 minutes Plan of Care Discussed with: patient Internal Medicine: Result - Labs CBC & Chem 7: 07/16/18 01:46 07/16/18 01:46 Labs: Short CBC 07/16/18 Range/Units 01:46 WBC 3.7 L (4.3-11.1) K/mcL Hgb 9.5 L (12.9-16.9) g/dL Hct 29.4 L (37.5-50.1) % Plt Count 191 (140-400) K/mcL Neutrophils # 2.5 (1.6-8.9) K/mcL BMP 07/16/18 01:46 Sodium 130 L Potassium 3.9 Chloride 99 Carbon Dioxide 24 BUN 23 Creatinine 1.21 Glucose 113 H Calcium 9.3 - Impressions Impressions Fluoroscopy 07/16/18 00:00 IMPRESSION: Single fluoroscopic spot view demonstrating L1 vertebroplasty. Please see full procedure note for further details. D/ / 07/16/2018 11:20:07 Walker Lopez MD / earno Interpreting Provider: Walker Lopez MD Xray Preliminary Report 07/16/18 00:00 IMPRESSION: Interval L1 vertebroplasty. See separate procedure report for more information. D/ / Walker Lopez MD / Walker Lopez MD Interpreting Provider: Walker Lopez MD Consult Discharge Plan - Plan Referrals: Lincoln Meneses MD [Primary Care Provider] - (1) Syncope Qualifiers: Syncope type: unspecified Qualified Code(s): R55 - Syncope and collapse (2) Burst fracture of lumbar vertebra Qualifiers: Encounter type: initial encounter Fracture type: closed Qualified Code(s): S32.001A - Stable burst fracture of unspecified lumbar vertebra, initial encounter for closed fracture (5) HTN (hypertension) Qualifiers: Hypertension type: essential hypertension Qualified Code(s): I10 - Essential (primary) hypertension (7) CVA (cerebral vascular accident) Qualifiers: CVA mechanism: thrombosis Precerebral and cerebral artery: middle cerebral artery Laterality of affected vessel: right Qualified Code(s): I63.311 - Cerebral infarction due to thrombosis of right middle cerebral artery
[2018-07-17] MEDS: Metoclopramide 10 MG/2 ML VIAL IVP SCH ×5 (00:05→17:31)
[2018-07-17] MEDS: *HR* Heparin 5,000 UNIT/ML VIAL SQ SCH ×2 (06:18→17:31)
[2018-07-17] MEDS: Ringers Solution, Lactated 1,000 ML IVC SCH ×2 (08:45→08:54)
[2018-07-17] MEDS: Metoprolol XL (24 HR) Succ 25 MG TAB.ER.24H PO SCH (08:49)
[2018-07-17] MEDS: Lisinopril 20 MG TABLET PO SCH (08:49)
[2018-07-17] MEDS: amLODIPine 5 MG TABLET PO SCH (08:49)
[2018-07-17] MEDS: Aspirin Enteric Coated 81 MG Tablet PO SCH (08:49)
[2018-07-17] MEDS: Finasteride 5 MG TABLET PO SCH (08:49)
[2018-07-17] MEDS: Cholecalciferol (D-3) 1,000 UNIT TABLET PO SCH (08:50)
[2018-07-17] MEDS ORDERED: Patient Taking Own Medication 1 EACH PO SCH (09:00)
[2018-07-17] MEDS ORDERED: Ketorolac 15 MG/ML VIAL IVP PRN (10:54)
[2018-07-17] MEDS ORDERED: Bisacodyl 10 MG RECTAL SUPPOSITORY RC ONE (10:59)
[2018-07-17] MEDS: Sennosides/Docusate Sodium TABLET PO SCH ×2 (11:50→23:01)
[2018-07-17] MEDS ORDERED: Ipratropium/Albuterol Neb 3 ML IH PRN (17:52)
--- NOTE | 2018-07-17 23:53 | Internal Med Progress Note ---
Hospitalist Progress Note - Encounter Date of Encounter: 07/17/18 Time of Encounter: 19:00 - Subjective Interval History: SUBJECTIVE: The patient had low back surgery yesterday morning. After the surgery he developed more abdominal distention. It is associated with mild abdominal pain and some nausea but not vomiting. He has not had any bowel movements for about 1 week. Denies chest pain and difficulty breathing. Denies dizziness/lightheadedness. The patient has experienced a syncopal episode at home recently. It was likely vasovagal; when he was sitting on a commode. Subsequently, he fell sustaining a burst fracture of L1 vertebra. OBJECTIVE: Skin: Free of rash and discoloration. ENMT: Oral/pharyngeal mucosa is normal in appearance. Eyes: Sclera is white. There is no discharge from eyes. Respiratory: Normal breath sounds; no crackles or wheezes. CV: Heart is regular; no gallop or murmur. GI: Abdomen is soft and not tender. There is no palpable mass or visceromegaly. Neuro: There is no focal deficits. ASSESSMENT AND PLAN: Syncope, likely vasovagal. With fracture of L1 vertebra. He had low back surgery yesterday morning. Ileus. Secondary to opiate analgesics/staying in bed. Also, secondary to constipation. We started laxatives yesterday. He had a large bowel movement today afternoon. We will keep him on clear liquids and IV Reglan. Hyponatremia. Seems to be chronic/stable. Paroxysmal atrial fibrillation. Due to his age and tendency to falls he would be a better candidate for anticoagulation. His last episode of PAF was during his last hospitalization here. He had recently CVA. He has not completely recovered from that. He would benefit from ECF. BPH with urinary tract obstruction. Mullins catheter will stay for 7-10 days. He is on Flomax. - Exam Vitals: Temp Pulse Resp BP Pulse Ox 98.1 F 97 18 163/88 94 07/17/18 17:53 07/17/18 17:53 07/17/18 17:53 07/17/18 17:53 07/17/18 17:53 Exam: xx - Assessment and Plan (1) Syncope Current Visit: Yes Status: Acute (2) Burst fracture of lumbar vertebra Current Visit: Yes Status: Acute (3) Ileus Current Visit: Yes Status: Acute (4) Hyponatremia Current Visit: Yes Status: Chronic (5) HTN (hypertension) Current Visit: Yes Status: Chronic (6) PAF (paroxysmal atrial fibrillation) Current Visit: Yes Status: Chronic (7) CVA (cerebral vascular accident) Current Visit: Yes Status: Chronic (8) Urinary retention Current Visit: Yes Status: Acute - Time Spent with Patient Total time spent is greater than 50% in coordination of care (as documented) at patient's floor/unit and/or counseling patient: 25 - 35 minutes Plan of Care Discussed with: patient (and family..) Internal Medicine: Result - Labs CBC & Chem 7: 07/16/18 01:46 07/16/18 01:46 Consult Discharge Plan - Plan Referrals: Lincoln Meneses MD [Primary Care Provider] - (1) Syncope Qualifiers: Syncope type: unspecified Qualified Code(s): R55 - Syncope and collapse (2) Burst fracture of lumbar vertebra Qualifiers: Encounter type: initial encounter Fracture type: closed Qualified Code(s): S32.001A - Stable burst fracture of unspecified lumbar vertebra, initial encounter for closed fracture (5) HTN (hypertension) Qualifiers: Hypertension type: essential hypertension Qualified Code(s): I10 - Essential (primary) hypertension (7) CVA (cerebral vascular accident) Qualifiers: CVA mechanism: thrombosis Precerebral and cerebral artery: middle cerebral artery Laterality of affected vessel: right Qualified Code(s): I63.311 - Cerebral infarction due to thrombosis of right middle cerebral artery
[2018-07-18] MEDS: Metoclopramide 10 MG/2 ML VIAL IVP SCH ×5 (03:48→23:48)
[2018-07-18 04:30] LABS: Basophils % 0.2 %; Eosinophils % 0.3 %; Hematocrit 33.2 % (37.5-50.1); Immature Granulocytes % 0.3 % (0-4); Lymphocytes # 0.8 K/mcL (0.6-4.6); Lymphocytes % 12.9 %; Mean Corpuscular HGB Conc 33.1 g/dL (31.6-35.5); Mean Corpuscular Hemoglobin 28.7 pg (28.0-33.3); Mean Corpuscular Volume 86.7 fL (83.0-100.0); Mean Platelet Volume 9.7 fL (9.4-12.4); Monocytes # 0.9 K/mcL (0.0-1.3); Monocytes % 14.9 %; Neutrophils # 4.2 K/mcL (1.6-8.9); Platelet Count 244 K/mcL (140-400); Red Blood Count 3.83 M/mcL (4.19-5.50); Red Cell Distribution Width 12.2 % (11.5-14.5); Segmented Neutrophils % 71.4 %
[2018-07-18 04:45] LABS: BUN/Creatinine Ratio 24 (6-26); Blood Urea Nitrogen 27 mg/dL (8-23); Carbon Dioxide 22 mEq/L (23-29); Chloride 102 mEq/L (98-107); Glucose 133 mg/dL (70-105); Osmolality,Calculated 281 (280-300); Potassium 4.3 mEq/L (3.5-5.1); Sodium 132 mEq/L (136-145); eGFR For Non-African Americans > 60 (> 60)
[2018-07-18] MEDS: *HR* Heparin 5,000 UNIT/ML VIAL SQ SCH ×2 (06:26→18:00)
[2018-07-18] MEDS: Metoprolol XL (24 HR) Succ 25 MG TAB.ER.24H PO SCH (09:53)
[2018-07-18] MEDS: Finasteride 5 MG TABLET PO SCH (09:53)
[2018-07-18] MEDS: Cholecalciferol (D-3) 1,000 UNIT TABLET PO SCH (09:54)
[2018-07-18] MEDS: amLODIPine 5 MG TABLET PO SCH (09:54)
[2018-07-18] MEDS: Lisinopril 20 MG TABLET PO SCH (09:54)
[2018-07-18] MEDS: Aspirin Enteric Coated 81 MG Tablet PO SCH (09:54)
[2018-07-18] MEDS: Sennosides/Docusate Sodium TABLET PO SCH ×2 (09:57→20:18)
--- NOTE | 2018-07-18 22:59 | Internal Med Progress Note ---
Hospitalist Progress Note - Encounter Date of Encounter: 07/18/18 Time of Encounter: 19:00 - Subjective Interval History: SUBJECTIVE: He continues to have significant abdominal distention. It was not associated with nausea or vomiting today morning. I agreed to start him on regular diet. He had any another bowel movement today morning. I check him again in the evening. His abdominal distention seems to be worse. Again, not associated with nausea or vomiting. He was passing some gas in the morning; it did not happen in the afternoon/evening. His low back pain seems to be under control. He gets when necessary injections of Toradol. The patient has experienced a syncopal episode at home recently. It was likely vasovagal; when he was sitting on a commode. Subsequently, he fell sustaining a burst fracture of L1 vertebra. He had a surgery to repair this problem the day before yesterday. He started on physical therapy. OBJECTIVE: Skin: Free of rash and discoloration. ENMT: Oral/pharyngeal mucosa is normal in appearance. Eyes: Sclera is white. There is no discharge from eyes. Respiratory: Normal breath sounds; no crackles or wheezes. CV: Heart is regular; no gallop or murmur. GI: His abdomen shows moderate distention. It is quite firm in all 4 quadrants. I can hear hypoactive bowel sounds. Neuro: There is no focal deficits. ASSESSMENT AND PLAN: Syncope, likely vasovagal. With fracture of L1 vertebra. He had low back surgery the day before yesterday. We started him on physical therapy. Ileus. Secondary to opiate analgesics/staying in bed. Also, secondary to constipation. We started him on laxatives. He had a large bowel movement yesterday afternoon. He had an another one today morning. We will keep him on IV Reglan. I substituted his narcotics with when necessary IV Toradol. Hyponatremia. Seems to be chronic/stable. His sodium from today is 132; 128 was 3 days ago. Paroxysmal atrial fibrillation. Due to his age and tendency to falls he would be a better candidate for anticoagulation. His last episode of PAF was during his last hospitalization here. He had recently CVA. He has not completely recovered from that. He would benefit from ECF. BPH with urinary tract obstruction. Mullins catheter will stay for 7-10 days. He is on Flomax. - Exam Vitals: Temp Pulse Resp BP Pulse Ox 98.1 F 71 17 152/72 95 07/18/18 20:17 07/18/18 20:17 07/18/18 20:17 07/18/18 20:17 07/18/18 20:17 Exam: xx - Assessment and Plan (1) Syncope Current Visit: Yes Status: Acute (2) Burst fracture of lumbar vertebra Current Visit: Yes Status: Acute (3) Ileus Current Visit: Yes Status: Acute (4) Hyponatremia Current Visit: Yes Status: Chronic (5) HTN (hypertension) Current Visit: Yes Status: Chronic (6) PAF (paroxysmal atrial fibrillation) Current Visit: Yes Status: Chronic (7) CVA (cerebral vascular accident) Current Visit: Yes Status: Chronic (8) Urinary retention Current Visit: Yes Status: Acute - Time Spent with Patient Total time spent is greater than 50% in coordination of care (as documented) at patient's floor/unit and/or counseling patient: 25 - 35 minutes Plan of Care Discussed with: patient (and family..) Internal Medicine: Result - Labs CBC & Chem 7: 07/18/18 04:10 07/18/18 04:10 Labs: Short CBC 07/18/18 Range/Units 04:10 WBC 5.9 D (4.3-11.1) K/mcL Hgb 11.0 L D (12.9-16.9) g/dL Hct 33.2 L (37.5-50.1) % Plt Count 244 (140-400) K/mcL Neutrophils # 4.2 (1.6-8.9) K/mcL BMP 07/18/18 04:10 Sodium 132 L Potassium 4.3 Chloride 102 Carbon Dioxide 22 L BUN 27 H Creatinine 1.14 Glucose 133 H Calcium 10.0 Consult Discharge Plan - Plan Referrals: Lincoln Meneses MD [Primary Care Provider] - (1) Syncope Qualifiers: Syncope type: unspecified Qualified Code(s): R55 - Syncope and collapse (2) Burst fracture of lumbar vertebra Qualifiers: Encounter type: initial encounter Fracture type: closed Qualified Code(s): S32.001A - Stable burst fracture of unspecified lumbar vertebra, initial encounter for closed fracture (5) HTN (hypertension) Qualifiers: Hypertension type: essential hypertension Qualified Code(s): I10 - Essential (primary) hypertension (7) CVA (cerebral vascular accident) Qualifiers: CVA mechanism: thrombosis Precerebral and cerebral artery: middle cerebral artery Laterality of affected vessel: right Qualified Code(s): I63.311 - Cerebral infarction due to thrombosis of right middle cerebral artery
[2018-07-19] MEDS: Metoclopramide 10 MG/2 ML VIAL IVP SCH ×3 (05:31→17:19)
[2018-07-19] MEDS: *HR* Heparin 5,000 UNIT/ML VIAL SQ SCH ×2 (05:31→17:19)
[2018-07-19] MEDS: Cholecalciferol (D-3) 1,000 UNIT TABLET PO SCH (08:35)
[2018-07-19] MEDS: Lisinopril 20 MG TABLET PO SCH (08:35)
[2018-07-19] MEDS: Aspirin Enteric Coated 81 MG Tablet PO SCH (08:35)
[2018-07-19] MEDS: Sennosides/Docusate Sodium TABLET PO SCH ×2 (08:35→19:56)
[2018-07-19] MEDS: amLODIPine 5 MG TABLET PO SCH (08:36)
[2018-07-19] MEDS: Finasteride 5 MG TABLET PO SCH (08:36)
[2018-07-19] MEDS: Metoprolol XL (24 HR) Succ 25 MG TAB.ER.24H PO SCH (08:37)
[2018-07-19] MEDS ORDERED: Furosemide 40 MG TABLET PO ONE (13:57)
--- NOTE | 2018-07-19 23:29 | Internal Med Progress Note ---
Hospitalist Progress Note - Encounter Date of Encounter: 07/19/18 Time of Encounter: 19:00 - Subjective Interval History: SUBJECTIVE: The patient continues to have significant abdominal distention. He did well on regular diet yesterday/today morning. Did not develop any nausea or vomiting. He had 2 large bowel movements in the last 2 days; a small one today morning. He tries to be more out of bed sitting. He gets occasionally IV injection of Toradol to help his low back pain. We are trying not to give him any opiates. The patient experienced a syncopal episode at home before this hospitalization. It was likely vasovagal; when he was sitting on a commode. Subsequently, he fell sustaining a burst fracture of L1 vertebra. He had a surgery to repair this problem the admission. He gets physical therapy. OBJECTIVE: Skin: Free of rash and discoloration. ENMT: Oral/pharyngeal mucosa is normal in appearance. Eyes: Sclera is white. There is no discharge from eyes. Respiratory: Normal breath sounds; no crackles or wheezes. CV: Heart is regular; no gallop or murmur. GI: His abdomen shows moderate distention. It is quite firm in all 4 quadrants. I can hear hypoactive bowel sounds. Neuro: There is no focal deficits. ASSESSMENT AND PLAN: Syncope, likely vasovagal. With fracture of L1 vertebra. He had low back surgery recently. We started him on physical therapy. Ileus. Secondary to opiate analgesics/staying in bed. Also, secondary to constipation. We started him on laxatives. We will keep him on IV Reglan. I substituted his narcotics with when necessary IV Toradol. He tolerates regular diet despite of significant distention of his abdomen. Hyponatremia. Seems to be chronic/stable. His sodium from today is 132; 128 was 3 days ago. Paroxysmal atrial fibrillation. Due to his age and tendency to falls he would be a better candidate for anticoagulation. His last episode of PAF was during his last hospitalization here. He had recently CVA. He has not completely recovered from that. He would benefit from ECF. BPH with urinary tract obstruction. Mullins catheter will stay for 7-10 days. He is on Flomax. - Exam Vitals: Temp Pulse Resp BP Pulse Ox 98.2 F 93 16 152/92 94 07/19/18 23:02 07/19/18 23:02 07/19/18 23:02 07/19/18 23:02 07/19/18 23:02 Exam: xx - Assessment and Plan (1) Syncope Current Visit: Yes Status: Acute (2) Burst fracture of lumbar vertebra Current Visit: Yes Status: Acute (3) Ileus Current Visit: Yes Status: Acute (4) Hyponatremia Current Visit: Yes Status: Chronic (5) HTN (hypertension) Current Visit: Yes Status: Chronic (6) PAF (paroxysmal atrial fibrillation) Current Visit: Yes Status: Chronic (7) CVA (cerebral vascular accident) Current Visit: Yes Status: Chronic (8) Urinary retention Current Visit: Yes Status: Acute - Time Spent with Patient Total time spent is greater than 50% in coordination of care (as documented) at patient's floor/unit and/or counseling patient: 25 - 35 minutes Plan of Care Discussed with: patient (and his ..) Internal Medicine: Result - Labs CBC & Chem 7: 07/18/18 04:10 07/18/18 04:10 - Impressions Impressions [facility] X-Ray 07/19/18 10:05 IMPRESSION: Prominent air-filled loops of both large and small bowel again seen within the abdomen, which may represent an ileus. D/ / Jevon Aragon MD / Jevon Aragon MD Interpreting Provider: Jevon Aragon MD Consult Discharge Plan - Plan Referrals: Lincoln Meneses MD [Primary Care Provider] - (1) Syncope Qualifiers: Syncope type: unspecified Qualified Code(s): R55 - Syncope and collapse (2) Burst fracture of lumbar vertebra Qualifiers: Encounter type: initial encounter Fracture type: closed Qualified Code(s): S32.001A - Stable burst fracture of unspecified lumbar vertebra, initial encounter for closed fracture (5) HTN (hypertension) Qualifiers: Hypertension type: essential hypertension Qualified Code(s): I10 - Essential (primary) hypertension (7) CVA (cerebral vascular accident) Qualifiers: CVA mechanism: thrombosis Precerebral and cerebral artery: middle cerebral artery Laterality of affected vessel: right Qualified Code(s): I63.311 - Cerebral infarction due to thrombosis of right middle cerebral artery
[2018-07-20] MEDS: Metoclopramide 10 MG/2 ML VIAL IVP SCH ×5 (00:03→23:41)
[2018-07-20] MEDS: *HR* Heparin 5,000 UNIT/ML VIAL SQ SCH ×2 (06:32→16:30)
[2018-07-20] MEDS: Finasteride 5 MG TABLET PO SCH (09:02)
[2018-07-20] MEDS: Metoprolol XL (24 HR) Succ 25 MG TAB.ER.24H PO SCH (09:02)
[2018-07-20] MEDS: Cholecalciferol (D-3) 1,000 UNIT TABLET PO SCH (09:02)
[2018-07-20] MEDS: Sennosides/Docusate Sodium TABLET PO SCH ×2 (09:02→20:52)
[2018-07-20] MEDS: Aspirin Enteric Coated 81 MG Tablet PO SCH (09:02)
[2018-07-20] MEDS: Lisinopril 20 MG TABLET PO SCH (09:03)
[2018-07-20] MEDS: Ringers Solution, Lactated 1,000 ML IVC SCH (16:29)
[2018-07-20 16:40] LABS: Bilirubin,Urine Small (Negative); Blood,Urine Large (Negative); Clarity,Urine Clear (Clear); Color,Urine Yellow (Yellow); Glucose,Urine (UA) Normal (Normal); Ketones,Urine Negative (Negative); Leukocyte Esterase,Urine Trace (Negative); Nitrite,Urine Negative (Negative); Protein,Urine >=300 mg/dL (Neg-Trace); Specific Gravity,Urine 1.023 (1.010-1.025); Urobilinogen,Urine Normal (Normal)
[2018-07-20 16:41] LABS: Bacteria,Urine None Seen per hpf (None-Few); Hyaline Casts,Urine None Seen per lpf (None-Few); RBC,Urine TNTC per hpf (0-3); Squamous Epithelial Cell,Urine Moderate per lpf (None-Few)
--- NOTE | 2018-07-20 21:17 | Internal Med Progress Note ---
Hospitalist Progress Note - Encounter Date of Encounter: 07/20/18 Time of Encounter: 19:00 - Subjective Interval History: SUBJECTIVE: The patient continues to have moderate abdominal distention. It is not associated with nausea or vomiting. He had a small bowel movements today morning. He had had 2 large bowel movements in the last couple days. He spends more time sitting out of bed. His low back pain is relatively mild. He takes had Toradol injections very occasionally. The patient experienced a syncopal episode at home before this hospitalization. It was likely vasovagal; when he was sitting on a commode. Subsequently, he fell sustaining a burst fracture of L1 vertebra. He had a surgery to repair this problem the admission. He gets physical therapy. OBJECTIVE: Skin: Free of rash and discoloration. ENMT: Oral/pharyngeal mucosa is normal in appearance. Eyes: Sclera is white. There is no discharge from eyes. Respiratory: Normal breath sounds; no crackles or wheezes. CV: Heart is regular; no gallop or murmur. GI: His abdomen shows moderate distention. It is quite firm in all 4 quadrants. I can hear hypoactive bowel sounds. Neuro: There is no focal deficits. ASSESSMENT AND PLAN: Syncope, likely vasovagal. With fracture of L1 vertebra. He had low back surgery recently. We started him on physical therapy. Ileus. Secondary to opiate analgesics/staying in bed. Also, secondary to constipation. We started him on laxatives. We will keep him on IV Reglan. I substituted his narcotics with when necessary IV Toradol. He tolerates regular diet despite of significant distention of his abdomen. I did urine test today. He does not show any features of urinary tract infection. He does have some red blood cells; has indwelling Mullins catheter. Hyponatremia. Seems to be chronic/stable. His sodium from today is 132; 128 was 3 days ago. Paroxysmal atrial fibrillation. Due to his age and tendency to falls he would be a better candidate for anticoagulation. His last episode of PAF was during his last hospitalization here. He had recently CVA. He has not completely recovered from that. He would benefit from ECF. BPH with urinary tract obstruction. Mullins catheter will stay for 7-10 days. He is on Flomax. Disposition: A referral has been made to ECF. - Exam Vitals: Temp Pulse Resp BP Pulse Ox 98.2 F 84 18 155/81 94 07/20/18 20:40 07/20/18 20:40 07/20/18 20:40 07/20/18 20:40 07/20/18 20:40 Exam: xx - Assessment and Plan (1) Syncope Current Visit: Yes Status: Acute (2) Burst fracture of lumbar vertebra Current Visit: Yes Status: Acute (3) Ileus Current Visit: Yes Status: Acute (4) Hyponatremia Current Visit: Yes Status: Chronic (5) HTN (hypertension) Current Visit: Yes Status: Chronic (6) PAF (paroxysmal atrial fibrillation) Current Visit: Yes Status: Chronic (7) CVA (cerebral vascular accident) Current Visit: Yes Status: Chronic (8) Urinary retention Current Visit: Yes Status: Acute - Time Spent with Patient Total time spent is greater than 50% in coordination of care (as documented) at patient's floor/unit and/or counseling patient: 25 - 35 minutes Plan of Care Discussed with: patient (and his ..) Internal Medicine: Result - Labs CBC & Chem 7: 07/18/18 04:10 07/18/18 04:10 Consult Discharge Plan - Plan Referrals: Lincoln Meneses MD [Primary Care Provider] - (1) Syncope Qualifiers: Syncope type: unspecified Qualified Code(s): R55 - Syncope and collapse (2) Burst fracture of lumbar vertebra Qualifiers: Encounter type: initial encounter Fracture type: closed Qualified Code(s): S32.001A - Stable burst fracture of unspecified lumbar vertebra, initial encounter for closed fracture (5) HTN (hypertension) Qualifiers: Hypertension type: essential hypertension Qualified Code(s): I10 - Essential (primary) hypertension (7) CVA (cerebral vascular accident) Qualifiers: CVA mechanism: thrombosis Precerebral and cerebral artery: middle cerebral artery Laterality of affected vessel: right Qualified Code(s): I63.311 - Cerebral infarction due to thrombosis of right middle cerebral artery
[2018-07-21 03:40] LABS: Eosinophils # 0.1 K/mcL (0.0-0.6); Eosinophils % 2.6 %; Hemoglobin 10.7 g/dL (12.9-16.9); Immature Granulocytes % 0.3 % (0-4); Lymphocytes # 0.6 K/mcL (0.6-4.6); Lymphocytes % 20.5 %; Mean Corpuscular HGB Conc 33.4 g/dL (31.6-35.5); Mean Corpuscular Hemoglobin 29.3 pg (28.0-33.3); Mean Corpuscular Volume 87.7 fL (83.0-100.0); Mean Platelet Volume 9.8 fL (9.4-12.4); Monocytes # 0.7 K/mcL (0.0-1.3); Monocytes % 21.5 %; Neutrophils # 1.7 K/mcL (1.6-8.9); Platelet Count 217 K/mcL (140-400); Red Blood Count 3.65 M/mcL (4.19-5.50); Red Cell Distribution Width 12.3 % (11.5-14.5); Segmented Neutrophils % 55.1 %
[2018-07-21 03:55] LABS: BUN/Creatinine Ratio 28 (6-26); Blood Urea Nitrogen 29 mg/dL (8-23); Calcium 9.7 mg/dL (8.6-10.3); Carbon Dioxide 26 mEq/L (23-29); Chloride 103 mEq/L (98-107); Glucose 115 mg/dL (70-105); Magnesium 1.8 mg/dL (1.6-2.6); Osmolality,Calculated 289 (280-300); Potassium 3.3 mEq/L (3.5-5.1); Sodium 136 mEq/L (136-145); eGFR For Non-African Americans > 60 (> 60)
[2018-07-21 04:05] LABS: Platelet Estimate Normal (Normal)
[2018-07-21] MEDS: Ringers Solution, Lactated 1,000 ML IVC SCH ×4 (04:17→12:53)
[2018-07-21] MEDS: *HR* Heparin 5,000 UNIT/ML VIAL SQ SCH ×2 (05:18→08:11)
[2018-07-21] MEDS: Metoclopramide 10 MG/2 ML VIAL IVP SCH ×3 (05:18→12:09)
[2018-07-21 06:23] LABS: Troponin I < 0.03 ng/mL (< 0.04)
[2018-07-21] MEDS ORDERED: Potassium Chloride 40 MEQ/200 ML BAG IVPB PRN (06:33)
[2018-07-21] MEDS ORDERED: Artificial Tears SOLN 15 ML BOTTLE BOTH EYES PRN (06:33)
--- NOTE | 2018-07-21 06:35 | Procedure Note ---
Date of procedure: 07/21/18 Pre-op diagnosis: Hypotension Post-op diagnosis: same Procedure: Procedure Note: Central Venous Catheter Insertion Indication: Hypotension Attending Physician: Michelet Cut Off Machine Unloader: Melina Indication: This is an 87 year-old male with ileus that experienced new onset AMS and hypoxic respiratory failure. Rapid response was called and patient was found to be unresponsive, and hypotensive requiring emergent intubation and BP support with Pressors. Technique: Due to the emergent nature of the situation, the procedure was done without sterile technique. The right groin was prepped with 2% chlorhexidine and draped with a full length sterile sheet in the usual fashion. The right femoral artery was palpated manually and strong pulse was noted. Using an 18 gauge thin wall needle directed medially, the right femoal artery was accessed. A triple lumen was inserted via the seldinger technique. Blood was withdrawn from all lumens and flushed with normal saline. The catheter was sutured in place and a sterile dressing was applied over the site prior to removal of drapes. The patient tolerated the procedure well and there were no complications. EBL: 5mL Complication: None Anesthesia: none (Patient was unresponsive) Surgeon: Dennis Summers Was there an senior court office assistant present: Yes Vendor Representatives: Will Tafoya Estimated blood loss (cc): 5 Specimen: n/a Pathology: none sent Condition: critical Disposition: ICU
[2018-07-21] MEDS ORDERED: Piperacillin/Tazobactam 3.375 GM in 0.9 % Sodium Chloride Mini Bag 100 ML IVPB ONE (06:44)
--- NOTE | 2018-07-21 06:44 | Event Note ---
<Fortunato Medina - Last Filed: 07/21/18 07:10> Date of Encounter: 07/21/18 Time of Encounter: 06:40 Hospice was paged because patient was hypotensive and having difficulty breathing. On arrival patient was in distress, minimally responsive to verbal stimuli, blood pressure of 80/50, tachypneic, tachycardic. EKG shows atrial fibrillation without ST-T wave changes. Patient has a history of atrial fibrillation. Patient initially was admitted for burst fracture of L1 and is status post kyphoplasty and then developed a ileus which from EMR records was treated with laxatives, nothing by mouth status. Patient's lungs were clear on exam, heart was irregularly irregular, abdomen was severely distended, absent bowel sounds, tympanic. Lower extremity showed 1+ pedal edema bilaterally. Patient was bolused 1 L normal saline however his blood pressure continued to worsen. He also was very confused, not responsive and not protecting his airway. He was emergently intubated and after right femoral line placement started on norepinephrine. Patient was then transferred to ICU. Lactic acid was greater than 10. Surgery was consulted. Patient was started on broad- spectrum antibiotics and antifungal. <Angel Gonzalez - Last Filed: 07/21/18 19:02> Date of Encounter: 07/21/18 Was contacted by nurse around 5:30 AM due to concern that the patient was short of breath with respiratory rate of 28 and blood pressure of 84/53. At the time I was addressing the care of another patient and informed my resident to assess the patient immediately. In the meantime versus instructed to obtain stat blood work as well as an EKG and to begin fluid bolus. Please see details above for hospital course.
[2018-07-21] MEDS ORDERED: FentaNYL (PF) 1,000 MCG in 0.9 % Sodium Chloride 80 ML IVC SCH (06:45)
[2018-07-21 06:57] LABS: Magnesium 0.7 mg/dL (1.6-2.6); Phosphorous 1.6 mg/dL (2.7-4.5)
--- NOTE | 2018-07-21 07:19 | Pulmonology Consult Note ---
<Fortunato Medina - Last Filed: 07/21/18 07:14> Date of Encounter: 07/21/18 Time of Encounter: 07:14 Assessment and Plan (1) Shock Current Visit: Yes Status: Acute Patient likely has septic shock secondary to abdominal process Patient has severely distended abdomen and has been treated for ileus in the past 4 days His lactic acid is greater than 10 He is requiring pressor support and is on 20 g of norepinephrine Patient was started on Zosyn and micafungin (2) Ileus Current Visit: Yes Status: Acute On 07/15 patient had KUB that showed right colon measuring up to 9 cm, distended and other areas of moderately distended small and large bowel loops. Patient was treated with nothing by mouth status and laxatives KUB on 07/19 showed prominent air filled loops of both large and small bowel again which may represent an ileus Currently patient's abdomen is severely distended and his lactic acid is greater than 10 This concern for ischemic bowel/perforation Patient is started on Zosyn and micafungin. Surgery was consulted. Patient is intubated however it has been very difficult to place a G-tube with multiple failed attempts. (3) Burst fracture of lumbar vertebra Current Visit: Yes Status: Acute Patient initially presented with fall, acute low back pain and was found to have L1 vertebral body inferior endplate fracture. He underwent kyphoplasty on 07/16/2018 Management as per spine surgery Qualifiers: Encounter type: initial encounter Fracture type: closed Qualified Code(s) : S32.001A - Stable burst fracture of unspecified lumbar vertebra, initial encounter for closed fracture (4) Hyponatremia Current Visit: Yes Status: Resolved Resolved (5) PAF (paroxysmal atrial fibrillation) Current Visit: Yes Status: Chronic Patient is in atrial fibrillation currently in His rate is controlled Her holding his metoprolol secondary to hypertension. History of Present Illness Consult date: 07/21/18 Reason for consult: other (Shock) Chief complaint: Back pain History of present illness: 87-year-old male initially presented on 07/14/18 with chief complaint of fall, acute back pain and diagnosed with L1 burst fracture. Patient underwent kyphoplasty on 07/16/18 without any complications. From EMR it is noted the patient developed ileus on 07/15/18 and was transitioned to nothing by mouth status. KUB showed right colon measuring up to 9 cm and other areas of moderately distended small and large loops Ileus was treated with laxatives. On patient was transitioned to regular diet but was noted to continued to have abdominal distention. He was also given IV Reglan for nausea. Today around 5 AM rapid response was called as patient was hypotensive, tachypneic, with altered mental status, not responding to any verbal or painful stimuli. He was emergently intubated and started on pressor support. Patient was transferred to ICU. Past Med Surg Social Fam HX - Past Medical History Medical history: CVA Additional medical history: Enlarged prostate Psychiatric history: no psych history - Past Surgical History Surgical History: appendectomy, herniorrhaphy - Social History Smoking Status: Former smoker Smokeless Tobacco Status: No Alcohol use: none Drug use: none - Family History Mother Living Status: Hx Family Cancer: Yes Medications and Allergies Amlodipine Besylate 10 mg PO DAILY 11/28/17 [History] Clopidogrel [Plavix] 75 mg PO DAILY 11/28/17 [History] Finasteride [Proscar] 5 mg PO DAILY 11/28/17 [History] Lisinopril [Zestril] 20 mg PO DAILY 11/28/17 [History] Simvastatin [Zocor] 10 mg PO DAILY 11/28/17 [History] Aspirin [Lo-Dose Aspirin EC] 81 mg PO DAILY 02/18/18 [History] Cholecalciferol (Vitamin D3) [Vitamin D3] 2,000 unit PO DAILY 02/18/18 [History] Ferrous Sulfate [Iron] 325 mg PO DAILY 02/18/18 [History] Flaxseed Oil [Alna-3 Flaxseed Oil] 1,000 mg PO DAILY 02/18/18 [History] Gabapentin [Neurontin] 400 mg PO BID 02/18/18 [History] Multivitamin [Multivitamins] 1 each PO DAILY 02/18/18 [History] Tamsulosin [Flomax] 0.4 mg PO DAILY 02/18/18 [History] Metoprolol XL (24 HR) Succ [Toprol Xl] 25 mg PO DAILY #30 tab.er.24h 05/07/18 [ Rx] 3 Allergy/AdvReac Type Severity Reaction Status Date / Time No Known Allergies Allergy Verified 05/06/18 21:26 ROS unobtainable: due to endotracheal tube, due to mental status All Systems: The remainder of the systems were reviewed and are negative Physical Examination Vital Signs: Vital Signs, Last 4 Hours Temp Pulse Resp BP Pulse Ox 07/21/18 06:35 98.9 F 101 28 71/48 80 07/21/18 06:30 97.6 F 112 29 100/86 99 07/21/18 04:17 98.5 F 92 16 132/77 93 General appearance: comatose Eyes: nonicteric ENT: oropharynx moist Mallampati (class): 2 Neck: no lymphadenopathy, no JVD Effort: mildly labored Inspection: kyphosis Auscultation: bilateral: clear Cardiovascular: irregular rhythm, other (Tachycardic, without murmur) Gastrointestinal: absent bowel sounds, other (Distended, tympanic) Integumentary: normal Extremities: edema (1+ bilaterally) Musculoskeletal: no deformities Gait: other (Unable to assess) unable to assess due to mental status other (Unable to assess) Results - Laboratory Findings CBC and BMP: 07/21/18 03:09 07/21/18 03:09 Abnormal lab findings: Abnormal lab results WBC 3.0 K/mcL (4.3-11.1) L 07/21/18 03:09 RBC 3.65 M/mcL (4.19-5.50) L 07/21/18 03:09 Hgb 10.7 g/dL (12.9-16.9) L 07/21/18 03:09 Hct 32.0 % (37.5-50.1) L 07/21/18 03:09 Potassium 3.3 mEq/L (3.5-5.1) L 07/21/18 03:09 BUN 29 mg/dL (8-23) H 07/21/18 03:09 BUN/Creatinine Ratio 28 (6-26) H 07/21/18 03:09 Glucose 115 mg/dL (70-105) H 07/21/18 03:09 POC Glucose 161 mg/dL (70-99) H 07/21/18 06:43 Lactic Acid > 10.0 mmol/L (0.5-2.2) H* 07/21/18 05:52 Phosphorus 1.6 mg/dL (2.7-4.5) L 07/21/18 05:36 Magnesium 0.7 mg/dL (1.6-2.6) L 07/21/18 05:36 B-Natriuretic Peptide 124 pg/mL (Less than 100) H 07/14/18 11:46 Urine Protein >=300 mg/dL (Neg-Trace) H 07/20/18 16:05 Urine Blood Large (Negative) H 07/20/18 16:05 Urine Bilirubin Small (Negative) H 07/20/18 16:05 Ur Leukocyte Esterase Trace (Negative) H 07/20/18 16:05 Urine Microscopic RBC TNTC per hpf (0-3) H 07/20/18 16:05 Urine Microscopic WBC 3-5 per hpf (0-3) H 07/20/18 16:05 Ur Squamous Epith Cells Moderate per lpf (None-Few) H 07/20/18 16:05 - Clinical Findings Intake & Output: Intake & Output 07/20/18 07/20/18 07/21/18 15:59 23:59 07:59 Intake Total 500 / 740 1000 / 1000 Output Total 400 / 400 Balance 500 / 740 600 / 600 Weight 85.8 kg Consult Discharge Plan - Plan Referrals: Lincoln Meneses MD [Primary Care Provider] - <Roberth Bowman - Last Filed: 07/21/18 12:17> Date of Encounter: 07/21/18 All Systems: The remainder of the systems were reviewed and are negative Physical Examination Vital Signs: Vital Signs, Last 4 Hours Temp Pulse Resp BP Pulse Ox 07/21/18 09:34 18 90/58 07/21/18 07:56 26 97/65 07/21/18 06:35 98.9 F 101 28 71/48 80 07/21/18 06:30 97.6 F 112 29 100/86 99 Ventilator Settings Ventilator Settings: Ventilator Settings, Last 8 Hours Ventilator Tidal Volume 500 Setting Ventilator Tidal Volume 500 Setting Ventilator Respiratory Rate 14 Setting Ventilator Respiratory Rate 14 Setting Actual Respiratory Rate 20 Actual Respiratory Rate 27 Positive End Expiratory 5 Pressure Positive End Expiratory 5 Pressure Peak Inspiratory Airway 6.8 Pressure Peak Inspiratory Airway 19 Pressure Results - Laboratory Findings CBC and BMP: 07/21/18 03:09 07/21/18 03:09 Abnormal lab findings: Abnormal lab results WBC 3.0 K/mcL (4.3-11.1) L 07/21/18 03:09 RBC 3.65 M/mcL (4.19-5.50) L 07/21/18 03:09 Hgb 10.7 g/dL (12.9-16.9) L 07/21/18 03:09 Hct 32.0 % (37.5-50.1) L 07/21/18 03:09 Potassium 3.3 mEq/L (3.5-5.1) L 07/21/18 03:09 BUN 29 mg/dL (8-23) H 07/21/18 03:09 BUN/Creatinine Ratio 28 (6-26) H 07/21/18 03:09 Glucose 115 mg/dL (70-105) H 07/21/18 03:09 POC Glucose 161 mg/dL (70-99) H 07/21/18 06:43 Lactic Acid > 10.0 mmol/L (0.5-2.2) H* 07/21/18 05:52 Phosphorus 1.6 mg/dL (2.7-4.5) L 07/21/18 05:36 Magnesium 0.7 mg/dL (1.6-2.6) L 07/21/18 05:36 B-Natriuretic Peptide 124 pg/mL (Less than 100) H 07/14/18 11:46 Urine Protein >=300 mg/dL (Neg-Trace) H 07/20/18 16:05 Urine Blood Large (Negative) H 07/20/18 16:05 Urine Bilirubin Small (Negative) H 07/20/18 16:05 Ur Leukocyte Esterase Trace (Negative) H 07/20/18 16:05 Urine Microscopic RBC TNTC per hpf (0-3) H 07/20/18 16:05 Urine Microscopic WBC 3-5 per hpf (0-3) H 07/20/18 16:05 Ur Squamous Epith Cells Moderate per lpf (None-Few) H 07/20/18 16:05 - Clinical Findings Intake & Output: Intake & Output 07/20/18 07/21/18 07/21/18 23:59 07:59 15:59 Intake Total 500 / 740 1000 / 1000 Output Total 400 / 400 Balance 500 / 740 600 / 600 Weight 85.8 kg - Attending Attestation I examined this patient and my medical decision-making was reviewed with the Resident Physician. I agree with the documented findings, disposition and treatment plan as described except to the extent set forth below. Patient seen and examined. Labs, radiology, chart personally reviewed. Agree with resident's history and physical, assessment, plan with following comments: INSTRUCTIONAL AIDE: Patient follows simple commands, Pulmonary: Acceptable oxygenation and ventilation. Patient currently is intubated after calling rapid response earlier and he is hemodynamically unstable for any spontaneous breathing trials. Cardiovascular: Patient is in shock, which is septic in nature, however with new evidence of hemorrhage on the CT abdomen if makes it even more complicated. GI: Nutrition per dietary and GI prophylaxis per routine. Pt NPO and seen pt surgery. I had long discussion before Dr. Camacho and after and also with Dr. Camacho regarding the management and conclusion at this time so far is no surgery I made it clear to the family with increase level of lactic acid prognosis is extremely poor and most likely will . They understand that patient at this time will be managed and CODE STATUS is DNR with comfort care. Heme: DVT prophylaxis per routine. Stop on anticoagulation and mechanical DVT ID: Continue antibiotics and plan to de-escalation. She will be treated septic shock and he will received fluid and monitor his H&H possible blood transfusion Renal; urine out put and renal funtion reviewed Endorcine: blood glucose is monitored Lines: all lines checked and no evidence of infections Skin: skin care to prevent pressure ulcers per nursing routine care I spent 35 min of Critical Care time with this patient. It involved decision making of high complexity to assess, manipulate, and support vital organ system failure and/or to prevent further life threatening deterioration of the patient' s condition. The time involved in the performance of separately reportable procedures was not counted toward critical care time.
[2018-07-21 07:46] LABS: VBG Ionized Calcium 1.29 mmol/L (1.15-1.35)
[2018-07-21] MEDS ORDERED: Isovue-370 500 ML INFUS..BTL IV ONE (08:09)
--- NOTE | 2018-07-21 08:32 | Procedure Note ---
Date of procedure: 07/21/18 Pre-op diagnosis: Respiratory distress Procedure: Endotracheal Intubation Date: 07/21/18 Time: 06:02 Indication: Respiratory Distress Resident: Dr. Maegan Fregoso Attending: Dr. Tafoya A time-out was completed verifying correct patient, procedure, site, positioning , and special equipment if applicable. The patient was placed in a flat position. Sedation was obtained using Versed 4mg IV. The patient was easily ventilated using an ambu bag. The Glidescope with a Mac 3 blade was used and inserted into the oropharynx at which time the vocal cords were visualized on the Glidescope screen. A 7.5-norwegian endotracheal tube was inserted and visualized going through the vocal cords. The stylette was removed. Colorimetric change was visualized on the CO2 meter. Breath sounds were heard in both lung ribera equally. The endotracheal tube was placed at 24 cm at left lip. Dr. Tafoya was present for the entire procedure. A chest x-ray was ordered to assess for pneumothorax and verify endotrachea ltube placement. Estimated Blood Loss: negligible The patient tolerated the procedure well and there were no complications. Anesthesia: other (4mg versed IV) Surgeon: Maegan Fregoso Was there an trust manager assistant present: Yes Animal Laboratory Technician: Will Tafoya Estimated blood loss (cc): 5 Specimen: none collected Pathology: none sent Condition: critical Disposition: ICU
--- NOTE | 2018-07-21 08:42 | General Surgery Progress Note ---
Date of Encounter: 07/21/18 Time of Encounter: 07:45 Objective Vital Signs - Last 8 Hours Temp Pulse Resp BP Pulse Ox 07/21/18 07:56 26 97/65 07/21/18 06:35 98.9 F 101 28 71/48 80 07/21/18 06:30 97.6 F 112 29 100/86 99 07/21/18 04:17 98.5 F 92 16 132/77 93 Intake and Output 07/20/18 07/21/18 07/21/18 23:59 07:59 15:59 Intake Total 500 / 740 1000 / 1000 Output Total 400 / 400 Balance 500 / 740 600 / 600 Intake: IV Fluids 1000 / 1000 Lactated Ringers 1,000 ML @ 100 1000 / 1000 mls/hr IVC .Q10H SMOOTH Rx#: [id number] Oral 500 / 740 Output: Catheter 400 / 400 Other: Weight 85.8 kg Blood Glucose* 161 Patient Weight 07/21/18 23:59 Weight 85.8 kg - Labs 07/21/18 03:09 07/21/18 03:09 Diabetes panel 07/21/18 Range/Units 03:09 Sodium 136 (136-145) mEq/L Potassium 3.3 L (3.5-5.1) mEq/L Chloride 103 (98-107) mEq/L Carbon Dioxide 26 (23-29) mEq/L BUN 29 H (8-23) mg/dL Creatinine 1.04 (0.70-1.30) mg/dL Glucose 115 H (70-105) mg/dL Calcium 9.7 (8.6-10.3) mg/dL Calcium panel 07/21/18 07/21/18 Range/Units 03:09 05:36 Calcium 9.7 (8.6-10.3) mg/dL Phosphorus 1.6 L (2.7-4.5) mg/dL Pituitary panel 07/21/18 Range/Units 03:09 Sodium 136 (136-145) mEq/L Potassium 3.3 L (3.5-5.1) mEq/L Chloride 103 (98-107) mEq/L Carbon Dioxide 26 (23-29) mEq/L BUN 29 H (8-23) mg/dL Creatinine 1.04 (0.70-1.30) mg/dL Glucose 115 H (70-105) mg/dL Calcium 9.7 (8.6-10.3) mg/dL Adrenal panel 07/21/18 Range/Units 03:09 Sodium 136 (136-145) mEq/L Potassium 3.3 L (3.5-5.1) mEq/L Chloride 103 (98-107) mEq/L Carbon Dioxide 26 (23-29) mEq/L BUN 29 H (8-23) mg/dL Creatinine 1.04 (0.70-1.30) mg/dL Glucose 115 H (70-105) mg/dL Calcium 9.7 (8.6-10.3) mg/dL Consult Discharge Plan - Plan Referrals: Lincoln Meneses MD [Primary Care Provider] -
[2018-07-21] MEDS ORDERED: Chlorhexidine Rinse 15 ML MOUTHWASH MM SCH (09:00)
[2018-07-21] MEDS: Norepinephrine 4 MG in D5% in Water 250 ML IVC SCH ×2 (09:00→11:23)
[2018-07-21] MEDS ORDERED: Micafungin 100 MG in 0.9 % Sodium Chloride Mini Bag 100 ML IVPB SCH (09:00)
--- NOTE | 2018-07-21 09:17 | General Surgery Consult Note ---
<Kaylee Rocha - Last Filed: 07/21/18 09:13> Date of Encounter: 07/21/18 Time of Encounter: 07:15 Assessment and Plan (1) Septic shock Status: Acute Lactic acid greater than 10 Requiring pressor support Management per primary team (2) Ileus Status: Acute vs possible ischemic bowel. Clinical course includes: Diagnosed with ileus on KUB with colon dilated up to 9 cm, treated with bowel rest and laxatives. He was IV Reglan on 07/19 following a trial of regular diet resulting in n/v. KUB on 07/19 noted prominent air filled loops of large and small bowel, small amount of stool in the colon again felt to represent ileus. Rapid response called 07/21 d/t hypotension and mental status changes. Surgery was consulted on 07/21/2108 for possible ischemic bowel. Currently requiring addition of second pressor and is intubated. Surgery was consulted accordingly as above. Dr Camacho discussed at length the possibility of ischemic bowel and possible laparotomy including the risk of not surviving surgery or recovery and that if no intervention was completed demise would likely result. The stated the patient would not like a surgery nor to be on life support. The daughter was not supportive of this decision and the family required more time to process/discuss. The decision was made to obtain a CT and give the family time to decide in the interim. a CT of the abdomen and pelvis was obtained with IV contrast. Per radiologist, Dr. Escalante: CT with Bleeding RUQ, vessel in mesentery, possibly delayed trauma, contrast extravasation and surrounding liver, tracks into pelvis on the right. I reviewed findings with Dr. Guan, who notes that it would be difficult to find the culprit vessel given this is likely venous, but if requested, he was more than willing to attempt. 0945: I reviewed the findings with the family. They stated they asked the patient twice if he would like intervention and twice the patient said no. The family is agreeable to maintain the patient wishes. I expressly reviewed with the family that if no drastic or surgical interventions were completed, the patient would be referred to palliative care for comfort care and that extubation and termination of pressor support would occur and this would likely result in his demise. The family stated understanding and the desire to keep Mr. Leong as comfortable as possible. Consult was placed to palliative care. Keesha Dixon APRN will evaluate patient. Surgery will sign off at this time. Thank you for allowing us to participate in Mr. Leong's care. Please call or reconsult if there is any change or indication for surgery. (3) Mesenteric bleeding Status: Acute History of Present Illness Consult date: 07/21/18 (Dr. Gricel Camacho) Reason for consult: other Requesting physician: Fortunato Medina History of present illness: Lyle is an 87 year old male admitted on 07/14/2018 s/p fall L1 burst fracture, and resultant kyphoplasty. He is intubated and sedated currently and does not answer any ROS questions. His , children, and grandchildren are at bedside. reports he is unhealthy and confused at baseline. She is TABLE MOUNTAIN and is therefore somewhat a poor historian. Clinical course and preadmission ROS obtained via chart review. Per record review, he developed an ileus and was treated with bowel rest, IV reglan, and laxatives. On 07/21 rapid respnse was called d/t hypotension, rapid breathing, and change in mental status. He was transferred to the ICU. His PMH, PSH, and past social history were obtained via record review. Past Med Surg Social Fam HX - Past Medical History Source: old records reviewed, obtained from family Medical history: CVA, other (confusion at baseline) Additional medical history: Enlarged prostate Psychiatric history: no psych history - Past Surgical History Surgical History: appendectomy, herniorrhaphy - Social History Smoking Status: Former smoker Smokeless Tobacco Status: No Alcohol use: none Drug use: none - Family History Mother Living Status: Hx Family Cancer: Yes Medications and Allergies Amlodipine Besylate 10 mg PO DAILY 11/28/17 [History] Clopidogrel [Plavix] 75 mg PO DAILY 11/28/17 [History] Finasteride [Proscar] 5 mg PO DAILY 11/28/17 [History] Lisinopril [Zestril] 20 mg PO DAILY 11/28/17 [History] Simvastatin [Zocor] 10 mg PO DAILY 11/28/17 [History] Aspirin [Lo-Dose Aspirin EC] 81 mg PO DAILY 02/18/18 [History] Cholecalciferol (Vitamin D3) [Vitamin D3] 2,000 unit PO DAILY 02/18/18 [History] Ferrous Sulfate [Iron] 325 mg PO DAILY 02/18/18 [History] Flaxseed Oil [Wales-3 Flaxseed Oil] 1,000 mg PO DAILY 02/18/18 [History] Gabapentin [Neurontin] 400 mg PO BID 02/18/18 [History] Multivitamin [Multivitamins] 1 each PO DAILY 02/18/18 [History] Tamsulosin [Flomax] 0.4 mg PO DAILY 02/18/18 [History] Metoprolol XL (24 HR) Succ [Toprol Xl] 25 mg PO DAILY #30 tab.er.24h 05/07/18 [ Rx] 3 Allergy/AdvReac Type Severity Reaction Status Date / Time No Known Allergies Allergy Verified 05/06/18 21:26 Review of Systems ROS unobtainable: due to endotracheal tube All systems PM: The remainder of the systems were reviewed and are negative General Surgery Exam Initial Vital Signs Temp Pulse Resp BP Pulse Ox 97.7 F 60 18 138/61 98 07/14/18 10:39 07/14/18 10:39 07/14/18 10:39 07/14/18 10:39 07/14/18 10:39 Intubated and on pressor support (norepinephrine) - General physical appearance other (intubated) - Eyes other (not assessed) - ENT normal nares, normal mucosa, Other (ETT and NG noted) - Neck trachea midline - Respiratory other (mechanical breath sounds; course wet breath sounds audible from across the room) - Cardiovascular Cardiovascular exam: Present: tachycardia, distant heart sounds - Abdomen Abdomen general surgery: Present: tender. Absent: bowel sounds present, soft ( Firm but not rigid) Hernia: Present: none - Genitourinary Present: other (sloan present) - Integumentary Integumentary general surgery: Present: warm and dry - Neurologic Present: other (intubated and sedated) - Musculoskeletal Present: other (intubated and sedated) Exam Initial Vital Signs Temp Pulse Resp BP Pulse Ox 97.7 F 60 18 138/61 98 07/14/18 10:39 07/14/18 10:39 07/14/18 10:39 07/14/18 10:39 07/14/18 10:39 Results - Labs 07/21/18 03:09 07/21/18 03:09 Abnormal lab results WBC 3.0 K/mcL (4.3-11.1) L 07/21/18 03:09 RBC 3.65 M/mcL (4.19-5.50) L 07/21/18 03:09 Hgb 10.7 g/dL (12.9-16.9) L 07/21/18 03:09 Hct 32.0 % (37.5-50.1) L 07/21/18 03:09 Potassium 3.3 mEq/L (3.5-5.1) L 07/21/18 03:09 BUN 29 mg/dL (8-23) H 07/21/18 03:09 BUN/Creatinine Ratio 28 (6-26) H 07/21/18 03:09 Glucose 115 mg/dL (70-105) H 07/21/18 03:09 POC Glucose 161 mg/dL (70-99) H 07/21/18 06:43 Lactic Acid > 10.0 mmol/L (0.5-2.2) H* 07/21/18 05:52 Phosphorus 1.6 mg/dL (2.7-4.5) L 07/21/18 05:36 Magnesium 0.7 mg/dL (1.6-2.6) L 07/21/18 05:36 B-Natriuretic Peptide 124 pg/mL (Less than 100) H 07/14/18 11:46 Urine Protein >=300 mg/dL (Neg-Trace) H 07/20/18 16:05 Urine Blood Large (Negative) H 07/20/18 16:05 Urine Bilirubin Small (Negative) H 07/20/18 16:05 Ur Leukocyte Esterase Trace (Negative) H 07/20/18 16:05 Urine Microscopic RBC TNTC per hpf (0-3) H 07/20/18 16:05 Urine Microscopic WBC 3-5 per hpf (0-3) H 07/20/18 16:05 Ur Squamous Epith Cells Moderate per lpf (None-Few) H 07/20/18 16:05 Diabetes panel 07/21/18 Range/Units 03:09 Sodium 136 (136-145) mEq/L Potassium 3.3 L (3.5-5.1) mEq/L Chloride 103 (98-107) mEq/L Carbon Dioxide 26 (23-29) mEq/L BUN 29 H (8-23) mg/dL Creatinine 1.04 (0.70-1.30) mg/dL Glucose 115 H (70-105) mg/dL Calcium 9.7 (8.6-10.3) mg/dL Calcium panel 07/21/18 07/21/18 Range/Units 03:09 05:36 Calcium 9.7 (8.6-10.3) mg/dL Phosphorus 1.6 L (2.7-4.5) mg/dL Pituitary panel 07/21/18 Range/Units 03:09 Sodium 136 (136-145) mEq/L Potassium 3.3 L (3.5-5.1) mEq/L Chloride 103 (98-107) mEq/L Carbon Dioxide 26 (23-29) mEq/L BUN 29 H (8-23) mg/dL Creatinine 1.04 (0.70-1.30) mg/dL Glucose 115 H (70-105) mg/dL Calcium 9.7 (8.6-10.3) mg/dL Adrenal panel 07/21/18 Range/Units 03:09 Sodium 136 (136-145) mEq/L Potassium 3.3 L (3.5-5.1) mEq/L Chloride 103 (98-107) mEq/L Carbon Dioxide 26 (23-29) mEq/L BUN 29 H (8-23) mg/dL Creatinine 1.04 (0.70-1.30) mg/dL Glucose 115 H (70-105) mg/dL Calcium 9.7 (8.6-10.3) mg/dL All other labs normal. Consult Discharge Plan - Plan Referrals: Lincoln Meneses MD [Primary Care Provider] - <Gricel Camacho - Last Filed: 07/22/18 16:33> Date of Encounter: 07/21/18 Assessment and Plan (1) Ileus Status: Acute patient has been treated for ileus acutely around 5 this am he had an acute change in status: hypotensive, tachycardia, increased abdominal distention, hypoxia, not protecting airway due to mental status change per ICU resident. at bedside is patients and several children and second degree feamily members discussed that given his increased abdominal distention, shock picture and lactate > 10 am concerned regarding ischemic gut. Discussed that I am not 100% sure that this is the etiology of his current condition but that I do believe he would require a surgery to potentially survive. Discussed that I can not guarantee a positive outcome for this hospital stay if he does undergo surgery. If he does not undergo surgery I believe he will likely . is present at bedside and states she does not think that regardless of what we do he will survive. She states they had previously talked about things and she knows he would not want to undergo further surgery. She is adamant that he not undergo further procedures. Daughter is present and stating that he should undergo surgery so they will have at least tried. Will obtain CT scan abdomen/pelvis/ chest. Allow family some time to discuss. CT scan showed bleeding from right colon mesentary and blood within abdominal cavity. Family does not want him to undergo surgery, they have asked him (while intubated) if he would like to undergo surgery and patient has shaken head no twice - giving family some peace of mind they are abiding by his wishes. (2) Septic shock Status: Acute (3) Mesenteric bleeding Status: Acute Review of Systems ROS unobtainable: due to endotracheal tube All systems PM: The remainder of the systems were reviewed and are negative General Surgery Exam Initial Vital Signs Temp Pulse Resp BP Pulse Ox 97.7 F 60 18 138/61 98 07/14/18 10:39 07/14/18 10:39 07/14/18 10:39 07/14/18 10:39 07/14/18 10:39 - General physical appearance no distress, other (sedated/intubated) - Eyes pinpoint pupil - ENT dry mucosa - Neck trachea midline - Respiratory other - Cardiovascular Cardiovascular exam: Present: tachycardia - Abdomen Abdomen general surgery: Present: soft, distended, tender. Absent: bowel sounds present, guarding, rebound - Integumentary Integumentary general surgery: Present: warm and dry - Neurologic Present: other - Musculoskeletal Present: other - Psychiatric Psychiatric general surgery: Present: other (sedated) Exam Initial Vital Signs Temp Pulse Resp BP Pulse Ox 97.7 F 60 18 138/61 98 07/14/18 10:39 07/14/18 10:39 07/14/18 10:39 07/14/18 10:39 07/14/18 10:39 Results - Labs 07/21/18 03:09 07/21/18 03:09 Abnormal lab results WBC 3.0 K/mcL (4.3-11.1) L 07/21/18 03:09 RBC 3.65 M/mcL (4.19-5.50) L 07/21/18 03:09 Hgb 10.7 g/dL (12.9-16.9) L 07/21/18 03:09 Hct 32.0 % (37.5-50.1) L 07/21/18 03:09 VBG pH 7.16 pH Units (7.32-7.42) L* 07/21/18 12:13 VBG pO2 75 mmHg (25-50) H 07/21/18 12:13 VBG HCO3 14 mEq/L (21-27) L 07/21/18 12:13 Potassium 3.3 mEq/L (3.5-5.1) L 07/21/18 03:09 BUN 29 mg/dL (8-23) H 07/21/18 03:09 BUN/Creatinine Ratio 28 (6-26) H 07/21/18 03:09 Glucose 115 mg/dL (70-105) H 07/21/18 03:09 POC Glucose 163 mg/dL (70-99) H 07/21/18 11:28 Lactic Acid 9.5 mmol/L (0.5-2.2) H* 07/21/18 09:39 Phosphorus 1.6 mg/dL (2.7-4.5) L 07/21/18 05:36 Magnesium 0.7 mg/dL (1.6-2.6) L 07/21/18 05:36 B-Natriuretic Peptide 124 pg/mL (Less than 100) H 07/14/18 11:46 Urine Protein >=300 mg/dL (Neg-Trace) H 07/20/18 16:05 Urine Blood Large (Negative) H 07/20/18 16:05 Urine Bilirubin Small (Negative) H 07/20/18 16:05 Ur Leukocyte Esterase Trace (Negative) H 07/20/18 16:05 Urine Microscopic RBC TNTC per hpf (0-3) H 07/20/18 16:05 Urine Microscopic WBC 3-5 per hpf (0-3) H 07/20/18 16:05 Ur Squamous Epith Cells Moderate per lpf (None-Few) H 07/20/18 16:05 All other labs normal. - Imaging CT scan - abdomen: report reviewed, image reviewed CT scan - pelvis: report reviewed, image reviewed - Attending Attestation I have personally performed a face to face evaluation on this patient. I have reviewed and agree with the care plan. History and Exam by me shows:
[2018-07-21] MEDS ORDERED: *HR* Metoprolol 5 MG/5 ML VIAL IVP ONE (09:42)
[2018-07-21] MEDS ORDERED: Phenylephrine 10 MG in D5% in Water 250 ML IVC SCH (09:45)
--- NOTE | 2018-07-21 10:01 | Pulmonology Progress Note ---
Date of Encounter: 07/21/18 Subjective Principal diagnosis: Vertebral compression fracture, back pain Objective PUL Vital signs: Last Vital Signs Temp 98.9 F 07/21/18 06:35 Pulse 101 07/21/18 06:35 Resp 18 07/21/18 09:34 BP 90/58 07/21/18 09:34 Pulse Ox 80 07/21/18 06:35 Ventilator Settings Ventilator Settings: Ventilator Settings, Last 8 Hours Ventilator Tidal Volume 500 Setting Ventilator Tidal Volume 500 Setting Ventilator Respiratory Rate 14 Setting Ventilator Respiratory Rate 14 Setting Actual Respiratory Rate 20 Actual Respiratory Rate 27 Positive End Expiratory 5 Pressure Positive End Expiratory 5 Pressure Peak Inspiratory Airway 6.8 Pressure Peak Inspiratory Airway 19 Pressure Results - Laboratory Findings CBC and BMP: 07/21/18 03:09 07/21/18 03:09 Abnormal lab findings: Abnormal lab results WBC 3.0 K/mcL (4.3-11.1) L 07/21/18 03:09 RBC 3.65 M/mcL (4.19-5.50) L 07/21/18 03:09 Hgb 10.7 g/dL (12.9-16.9) L 07/21/18 03:09 Hct 32.0 % (37.5-50.1) L 07/21/18 03:09 Potassium 3.3 mEq/L (3.5-5.1) L 07/21/18 03:09 BUN 29 mg/dL (8-23) H 07/21/18 03:09 BUN/Creatinine Ratio 28 (6-26) H 07/21/18 03:09 Glucose 115 mg/dL (70-105) H 07/21/18 03:09 POC Glucose 161 mg/dL (70-99) H 07/21/18 06:43 Lactic Acid > 10.0 mmol/L (0.5-2.2) H* 07/21/18 05:52 Phosphorus 1.6 mg/dL (2.7-4.5) L 07/21/18 05:36 Magnesium 0.7 mg/dL (1.6-2.6) L 07/21/18 05:36 B-Natriuretic Peptide 124 pg/mL (Less than 100) H 07/14/18 11:46 Urine Protein >=300 mg/dL (Neg-Trace) H 07/20/18 16:05 Urine Blood Large (Negative) H 07/20/18 16:05 Urine Bilirubin Small (Negative) H 07/20/18 16:05 Ur Leukocyte Esterase Trace (Negative) H 07/20/18 16:05 Urine Microscopic RBC TNTC per hpf (0-3) H 07/20/18 16:05 Urine Microscopic WBC 3-5 per hpf (0-3) H 07/20/18 16:05 Ur Squamous Epith Cells Moderate per lpf (None-Few) H 07/20/18 16:05 - Clinical Findings Intake & Output: Intake & Output 07/20/18 07/21/18 07/21/18 23:59 07:59 15:59 Intake Total 500 / 740 1000 / 1000 Output Total 400 / 400 Balance 500 / 740 600 / 600 Weight 85.8 kg Consult Discharge Plan - Plan Referrals: Lincoln Meneses MD [Primary Care Provider] -
[2018-07-21] MEDS: Sennosides/Docusate Sodium TABLET PO SCH (10:07)
[2018-07-21] MEDS: Cholecalciferol (D-3) 1,000 UNIT TABLET PO SCH (10:08)
[2018-07-21] MEDS ORDERED: D5% in Water 250 ML IV BAG IV ONE (10:43)
[2018-07-21] MEDS ORDERED: *HR* Norepinephrine 4 MG/4 ML VIAL IVC ONE (10:43)
--- NOTE | 2018-07-21 11:07 | Electrocardiograph Report ---
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
[2018-07-21] MEDS: Artificial Tears SOLN 15 ML BOTTLE BOTH EYES SCH ×2 (11:22→12:09)
[2018-07-21] MEDS ORDERED: Fluconazole 400 MG/200 ML 400 MG/200 ML BAG IVPB ONE (11:30)
[2018-07-21] MEDS ORDERED: *HR* LORazepam 2 MG/ML VIAL IVP PRN (12:06)
[2018-07-21] MEDS ORDERED: Atropine 1% Opth Drops 100 DROP/5 ML BOTTLE SL PRN (12:06)
[2018-07-21] MEDS ORDERED: Scopolamine Patch 1.5 MG PATCH.TD72 TD SCH (12:15)
[2018-07-21] MEDS ORDERED: *HR* Midazolam HCl 5 MG/5 ML VIAL IVP ONE (12:25)
[2018-07-21 12:29] LABS: VBG HCO3 14 mEq/L (21-27); VBG PCO2 41 mmHg (41-51); VBG PH 7.16 pH Units (7.32-7.42); VBG PO2 75 mmHg (25-50)
--- NOTE | 2018-07-21 12:52 | Palliative - Consult Note ---
Date of Encounter: 07/21/18 Time of Encounter: 11:45 - Assessment and Plan (1) Burst fracture of lumbar vertebra Current Visit: Yes Status: Acute Assessment and plan: Surgically managed through Kyphosis. Qualifiers: Encounter type: initial encounter Fracture type: closed Qualified Code(s) : S32.001A - Stable burst fracture of unspecified lumbar vertebra, initial encounter for closed fracture (2) PAF (paroxysmal atrial fibrillation) Current Visit: Yes Status: Chronic (3) Ileus Current Visit: Yes Status: Acute Assessment and plan: Family declined surgical intervention. (4) Shock Current Visit: Yes Status: Acute (5) Mesenteric bleeding Current Visit: Yes Status: Acute Assessment and plan: Family has chosen to withdraw care in hopes of keeping patient as comfortable as possible. (6) Goals of care, counseling/discussion Current Visit: Yes Status: Acute Assessment and plan: Upon arrival for assessment, family requested family meeting to take place in ICU waiting room as patients , patients 5 children, and many grandchildren present for discussion. Discussed review of stay from admission and results of recent CT scan. raised questions about ileus cause; explanation given with assistance from Primary RN Luiza; verbalized understanding. Discussed limited options for management without surgical intervention. reports she feels patient would not want surgery with limited chance of survival. Family in agreement. Discussed option to withdraw care and focus on compassion and symptom management. 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 Explained if transitioning to hospice/comfort care, would have to take out ET tube and stop pressor support; verbalized understanding and agreeable for transition. Family to notify nursing when ready to extubate. Comfort care orders place. (7) Generalized pain Current Visit: Yes Status: Acute Assessment and plan: Continue Fentanyl drip for comfort. Will transition to oral once able. (8) Anxiety Current Visit: Yes Status: Acute Assessment and plan: Ordered Ativan IVP for comfort. (9) Copious oral secretions Current Visit: Yes Status: Acute Assessment and plan: Ordered Scopalamine patch and Atropine drops for comfort. Palliative-CN HPI - Data of Consult Patient: new to practice Consult date: 07/21/18 Requesting Physician: Zachary Rosenthal Primary Care Provider: Lincoln Meneses MD - Consult Narrative Palliative Care/Comfort Measures: Palliative care Reason for consult: Hospice discussion/withdraw care History of present illness: Mr. Leong is a 87 year old male Arrived to [facility] on 07/14/18, for dizziness, back pain, and difficulty with urination s/p fall times 3 days prior. Patient found to have significant urinary retention. PMH: Chronic anemia, HTN, TIA, A-fib, Cancer and CVA. Chest x-ray showing: No acute cardiopulmonary disease. Ecg showing: Sinus rhythm, first degree AV block, and low voltage in extremity leads. CT/CT abdomen pelvis with IV and oral contrast showing: Acute L1 inferior endplate burst fracture; No other acute traumatic injury involving the abdomen and pelvis; and Atherosclerotic disease. CT of head without contrast showing: No acute intracranial abnormality; Cerebral atrophy; Severe chronic small vessel ischemic changes; and Remote lacunar infarcts involving the left basal ganglia. Patient admitted and medically managed for Burst Fracture of lumbar vertebra; hyponatremia; syncope; urinary retention; Afib; CVA; HTN; and dizziness. MR/MR lumbar spine without contrast showing: Acute or recent inferior endplate fracture of L1 vertebral body; No significant retropulsion into the spinal canal or significant spinal canal stenosis at this level; Multilevel degenerative changes of the lumbar spine, with spinal canal stenosis most prominent at L4-L5; Grade 1 anterolisthesis of L4 relative to L5; and Additional multilevel degenerative changes of the lumbar spine are detailed above. Urology consulted; recommend continue Flomax and follow up outpatient in office with voiding trial. Abdominal x-ray performed, showing: Distended right colon measures up to 9 cm and Other areas of moderately distended small large bowel loops probably in keeping with a pattern of ileus. Spine involved in care ; discussed brace versus kyphoplasty, patient opted to kyphoplasty. Kyphoplasty performed; tolerated well. 07/16/18: new onset abdominal pain; made patient NPO and initiated IV Reglan. 07/18/18: Abdominal distention worsening; no nausea or vomiting. X-ray performed showing ileus. 07/21/18: Patient found to be new onset AMS, hypotensive, and hypoxic; intubated, CVC insertion placed and transferred to ICU. EKG showed A-fib without St-T wave changes. Patient managed in ICU for Shock, ileus, Burst fracture of lumbar vertebrae, hyponatremia, and PAF. CT of abdomen and pelvis without contrast showing: Nodular hyperdensity is seen in the right upper quadrant abdominal mesentery, raising the question of active contrast extravasation-active bleeding from a small vessel; Hemorrhage is seen in the right upper quadrant marginal to the liver, and tracking inferiorly in the pelvis into the right pericolic gutter; There is moderate distention of the ascending and transverse colon; Small pleural effusions with adjacent consolidation at the lung bases, likely atelectasis; There is underlying emphysema; Mildly dilated abdominal aorta; and Esophagus is fluid- filled throughout suggesting reflux. Surgery consulted for possible ischemic bowel; met with family and family opted to refuse surgical intervention. Palliative care consulted for transition to comfort care. Patient lying in bed with eyes closed upon arrival for assessment. Does close eyes when talking to patient. No non-verbal signs of pain or discomfort noted during assessment. No reports of nausea/vomiting from primary RN. Unable to obtain information from patient as he is intubated and sedated. CC: Zachary Rosenthal - Time Spent with Patient Time: Total time spent is greater than 50% in coordination of care (as documented) at patient's floor/unit and/or counseling patient: 25 - 35 minutes Past Med Surg Social Fam HX - Past Medical History Medical history: CVA, other (confusion at baseline) Additional medical history: Enlarged prostate Psychiatric history: no psych history - Past Surgical History Surgical History: appendectomy, herniorrhaphy - Social History Smoking Status: Former smoker Smokeless Tobacco Status: No Alcohol use: none Drug use: none - Family History Mother Living Status: Hx Family Cancer: Yes Medications and Allergies Amlodipine Besylate 10 mg PO DAILY 11/28/17 [History] Clopidogrel [Plavix] 75 mg PO DAILY 11/28/17 [History] Finasteride [Proscar] 5 mg PO DAILY 11/28/17 [History] Lisinopril [Zestril] 20 mg PO DAILY 11/28/17 [History] Simvastatin [Zocor] 10 mg PO DAILY 11/28/17 [History] Aspirin [Lo-Dose Aspirin EC] 81 mg PO DAILY 02/18/18 [History] Cholecalciferol (Vitamin D3) [Vitamin D3] 2,000 unit PO DAILY 02/18/18 [History] Ferrous Sulfate [Iron] 325 mg PO DAILY 02/18/18 [History] Flaxseed Oil [[place]-3 Flaxseed Oil] 1,000 mg PO DAILY 02/18/18 [History] Gabapentin [Neurontin] 400 mg PO BID 02/18/18 [History] Multivitamin [Multivitamins] 1 each PO DAILY 02/18/18 [History] Tamsulosin [Flomax] 0.4 mg PO DAILY 02/18/18 [History] Metoprolol XL (24 HR) Succ [Toprol Xl] 25 mg PO DAILY #30 tab.er.24h 05/07/18 [ Rx] 3 Allergy/AdvReac Type Severity Reaction Status Date / Time No Known Allergies Allergy Verified 05/06/18 21:26 ROS unobtainable: due to endotracheal tube Palliative Care-Exam - Constitutional Vitals: Temp Pulse Resp BP Pulse Ox 98.4 F 120 15 106/66 100 07/21/18 12:06 07/21/18 11:00 07/21/18 11:05 07/21/18 11:05 07/21/18 07:00 General appearance: Present: morbidly obese, no acute distress - Head Head Exam: Present: atraumatic, normal inspection - Eye Eye exam: Present: normal appearance Pupils: Present: normal accommodation - ENT ENT exam: Present: mucous membranes moist, normal external ear exam - Expanded ENT Exam Mouth Exam: Absent: drooling - Neck Neck exam: Present: normal inspection - Respiratory Respiratory exam: Present: CTAB. Absent: accessory muscle use, respiratory distress - Cardiovascular Cardiovascular exam: Present: irregular rhythm - GI/Abdominal Exam GI/Abdominal exam: Present: diminished bowel sounds, firm, rigid (Tympanic). Absent: guarding - Rectal Rectal Exam: Present: black stool (liquid, noted to drainage bag.) - Catheter Type: Urethral ([place]) - Neurological Exam Neurological exam: Present: altered. Absent: alert - Expanded Neurological Exam Coma Scale Eye Opening: To Pain Coma Scale Motor Response: Localizes to Pain Coma Scale Verbal Response: None Coma Scale Total: 8 - Psychiatric Psychiatric exam: Present: flat affect - Skin Skin exam: Present: dry, intact, warm. Absent: normal color (bruising.) Internal Medicine - CN: Reslt - Labs CBC & Chem 7: 07/21/18 03:09 07/21/18 03:09 Labs: Short CBC 07/21/18 Range/Units 03:09 WBC 3.0 L (4.3-11.1) K/mcL Hgb 10.7 L (12.9-16.9) g/dL Hct 32.0 L (37.5-50.1) % Plt Count 217 (140-400) K/mcL Neutrophils # 1.7 (1.6-8.9) K/mcL BMP 07/21/18 03:09 Sodium 136 Potassium 3.3 L Chloride 103 Carbon Dioxide 26 BUN 29 H Creatinine 1.04 Glucose 115 H Calcium 9.7 Cardiac Enzymes 07/21/18 Range/Units 05:36 Troponin I < 0.03 (< 0.04) ng/mL - Impressions Impressions KUB X-Ray 07/21/18 05:39 IMPRESSION: 1. Multiple gas-filled dilated loops of large bowel in a pattern suggestive of an ileus. D/ / Madhav Felix MD / Madhav Felix MD Interpreting Provider: Madhav Felix MD Chest X-Ray 07/21/18 06:33 IMPRESSION: 1. The endotracheal tube tip is 6-7 cm above the buffy. 2. Left lower lobe atelectasis, aspiration or pneumonia. D/ / Hank Dominguez MD / Hank Dominguez MD Interpreting Provider: Hank Dominguez MD Abdomen/Pelvis CT 07/21/18 08:09 IMPRESSION: Nodular hyperdensity is seen in the right upper quadrant abdominal mesentery, raising the question of active contrast extravasation-active bleeding from a small vessel.. Hemorrhage is seen in the right upper quadrant marginating the liver, and tracking inferiorly in the pelvis into the right pericolic gutter. There is moderate distention of the ascending and transverse colon. Small pleural effusions with adjacent consolidation at the lung bases, likely atelectasis. There is underlying emphysema Mildly dilated abdominal aorta. Esophagus is fluid-filled throughout suggesting reflux RECOMMENDATIONS: Results discussed with Kaylee Rocha by Luis Enrique Patricio MD at 9:30am on 07/21/2018 D/ / Luis Enrique Patricio MD / Luis Enrique Patricio MD Interpreting Provider: Luis Enrique Patricio MD Chest CT 07/21/18 08:09 IMPRESSION: Nodular hyperdensity is seen in the right upper quadrant abdominal mesentery, raising the question of active contrast extravasation-active bleeding from a small vessel.. Hemorrhage is seen in the right upper quadrant marginating the liver, and tracking inferiorly in the pelvis into the right pericolic gutter. There is moderate distention of the ascending and transverse colon. Small pleural effusions with adjacent consolidation at the lung bases, likely atelectasis. There is underlying emphysema Mildly dilated abdominal aorta. Esophagus is fluid-filled throughout suggesting reflux RECOMMENDATIONS: Results discussed with Kaylee Rocha by Luis Enrique Patricio MD at 9:30am on 07/21/2018 D/ / Luis Enrique Patricio MD / Luis Enrique Patricio MD Interpreting Provider: Luis Enrique Patricio MD Consult Discharge Plan - Plan Referrals: Lincoln Meneses MD [Primary Care Provider] - Palliative Quality Palliative Quality: Screen for Code Status: Yes, Screen for Goals of Care: Yes, Screen for Pain: Yes, If Pain Regimen Started, Initiate Bowel Regimen: NA, Screen for Nausea/Vomitting: Yes Code Status: 07/21/18 08:09 CODE [Resuscitation Status: Active] [RES] Routine Comment: Resuscitation Status: DNR-Comfort Care-Arrest 07/21/18 12:06 DNR [Resuscitation Status: Active] [RES] Routine Comment: Resuscitation Status: DNR-Comfort Care
[2018-07-21 13:22] VITALS: BP 95/70
[2018-07-21] MEDS ORDERED: Atropine Sulfate 1% 40 DROP/2 ML BOTTLE SL PRN (14:00)
[2018-07-21] MEDS ORDERED: Piperacillin/Tazobactam 3.375 GM in 0.9 % Sodium Chloride Mini Bag 100 ML IVPB SCH (16:00)
[2018-07-21] MEDS ORDERED: Famotidine 20 MG/2 ML VIAL IVP SCH (18:00)
--- NOTE | 2018-07-21 18:58 | Death Note ---
<Jones Elliott - Last Filed: 07/21/18 18:56> Discharge Sum: Summary - Date and Time Date of admission: 07/20/18 18:31 Date of : 07/21/18 Time of : 17:49 - Summary Details: 87 year old male with PMHx of HTN, CVA, afib is presented to ED on 07/11 with back pain after a fall. Patient was found to have a compression fracture of L1 vertebrae. Patient had kyphoplasty on 07/16 with no complications. Patient developed an ileus and was made NPO. Abdominal distension was noted, but patient continued to have bowel movements. He was treated with laxatives. Rapid response was called when patient became hypotensive, respiratory distress and minimally responsive. Patient was intubated and transferred to ICU. Patient started on levophed and given fluid resuscitation. Surgery was consulted. Patient had stat abdominal/pelvis CT, which showed hemorrhage around RUQ of liver with suspicion for bleeding vessel. Family was notified the risks and benefits of surgery. Patient kept requiring increasing pressure support. Family decided not to proceed with surgery and make the patient DNR- CC. Patient was extubated and made full comfort care with pain control. Unfortunately, the patient was unable to maintain tissue perfusion and was pronounced at 17:49 with no heart beat, no respirations, and no pulses. - Additional Data Confirmation of as documented by pronouncing clinician: no pulse, no respirations, no heart sounds, pupils fixed and dilated Family: at bedside Attending physician: Zachary Rosenthal Advance directives: Yes Discharge Sum: Diag - PCOD Probable Cause of : Septic shock Discharge Sum: Prov - Provider Primary care physician: Lincoln Meneses MD Admitting clinician: Duncan Bah Attending physician on admission: Zachary Rosenthal Consults: 07/21/18 06:33 Consult to Critical Care [CONS] Routine Consulting Provider: Pulm Crit Care & Sleep [facility] Reason for Consult: acute respiratory failure, shock Call Completed: Yes 07/21/18 06:59 Consult to Surgery [CONS] Routine Consulting Provider: Surgery [facility] Reason for Consult: ileus, abdominal distension Call Completed: Yes 07/21/18 09:50 Consult to Palliative Care [CONS] Stat Comment: Spoke with Keesha Dixon Consulting Provider: Palliative Care Amelia Reason for Consult: Hospice 2/2 ischemic vs concomiennt messentieric bleed. Pt desires no furhter surgical intervention Time Notified: 09:51 Call Completed: Yes <Roberth Bowman - Last Filed: 07/22/18 06:06> Discharge Sum: Summary - Date and Time Date of admission: 07/20/18 18:31 - Additional Data Attending physician: Zachary Rosenthal Discharge Sum: Prov - Provider Primary care physician: Lincoln Meneses MD Consults: 07/21/18 06:33 Consult to Critical Care [CONS] Routine Consulting Provider: Pulm Crit Care & Sleep [facility] Reason for Consult: acute respiratory failure, shock Call Completed: Yes 07/21/18 06:59 Consult to Surgery [CONS] Routine Consulting Provider: Surgery [facility] Reason for Consult: ileus, abdominal distension Call Completed: Yes 07/21/18 09:50 Consult to Palliative Care [CONS] Stat Comment: Spoke with Keesha Dixon Consulting Provider: Palliative Care Amelia Reason for Consult: Hospice 2/2 ischemic vs concomiennt messentieric bleed. Pt desires no furhter surgical intervention Time Notified: 09:51 Call Completed: Yes - Attending Attestation This was discussed on 07/21/2018 and signed on 07/22/2018 I examined this patient and my medical decision-making was reviewed with the Resident Physician. I agree with the documented findings, disposition and treatment plan as described except to the extent set forth below. patient with septic shock and acute respiratory failure. Family decided not to be aggressive with his care and after extubation and stopping vasopresso, patient and family at the bedside.
[2018-07-22] MEDS ORDERED: Fluconazole 200 MG/100 ML 200 MG/100 ML BAG IVPB SCH (09:00)
--- NOTE | 2018-07-26 21:54 | Electrocardiograph Report ---
[place] [id number] Test Date: 2018-07-21 Pat Name: Lyle Leong Department: 112 Room: 02 Gender: M Cow Rider: Pipo : [id number] Requested By: Angel Gonzalez Order Number: [id number] Reading MD: Gerardo Curry Measurements Intervals [place] Rate: 156 P: IA: 0 QRS: 9 QRSD: 98 T: 38 QT: 290 QTc: 378 Interpretive Statements SUPRAVENTRICULAR TACHYCARDIA NONSPECIFIC ST & T-WAVE ABNORMALITY Electronically Signed On 07-26-2018 21:53:15 EDT by Gerardo Curry
== END 2018-07-21 17:49 | disposition expired | DRG 477 ==
LOC: 3NENU 10:35 → EMEROOARM 10:35 → SUATTDRO 15:33 → 3NENU 16:57 → ICNU 07-21 06:46
PROVIDERS: ADMIT Internal Medicine; ATTEND Internal Medicine